=== PATIENT | female | born 1980 | race Caucasian/White ===

== ENCOUNTER 2016-10-19 10:38 | Emergency (ER) | payer MEDICAID ==
[2016-10-19 11:22] LABS: RAPID STREP SCREEN REAGENT QC YELLOW (YELLOW)
[2016-10-19] MEDS ORDERED: DEXAMETHASONE 10 MG/ML VIAL PO STA (11:22)
[2016-10-19] MEDS ORDERED: DEXAMETHASONE 10 MG/ML VIAL ONE (11:40)
[2016-10-19] MEDS ORDERED: CHERRY SYRUP 10 ML UDC PO ONE (11:40)
--- NOTE | 2016-10-19 11:41 | ED Physician Documentation ---
History of Present Illness - Stated complaint Stated Complaint: SORE THROAT - Chief complaint Chief Complaint: Heent - Additonal information Additional information: hx from pt 36 female severe sore throat R ear pain no known fever no cough abd pain LMP now denies preg Review of Systems Constitutional: denies: Fever Ears: reports: Ear pain Throat: reports: Sore throat Respiratory: denies: Cough : reports: LMP (now). 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 - Present Medications Home Medications: Ambulatory Orders Medication Instructions Recorded Confirmed Amoxicillin 500 mg PO Q8H #30 capsule 10/19/16 Valacyclovir HCl [Valtrex] 1 tab PO DAILY 10/19/16 10/19/16 - Allergies Allergies/Adverse Reactions: Allergies Allergy/AdvReac Type Severity Reaction Status Date / Time No Known Drug Allergies Allergy Verified 10/19/16 10:50 - Social History Does the pt smoke?: Yes Smoking Status: Current every day smoker Does the pt drink ETOH?: Yes Does the pt have substance abuse?: Yes Substance Use and Type: Marijuana PD ED PE NORMAL - Vitals Vital signs reviewed: Yes - HEENT HEENT: Other (early 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 No: Ears normal (dull but not erythema) - Cardiac Cardiac: RRR - Respiratory Respiratory: No respiratory distress, Clear bilaterally Results - Vitals Vitals: Vital Signs - 24 hr 10/19/16 10:48 Temperature 36.6 C Heart Rate 97 Respiratory 12 Rate Blood Pressure 137/96 H O2 Saturation 100 Oxygen O2 Source Room air - Labs Labs: Laboratory Tests 10/19/16 10:44 Group A Strep Rapid Negative PD MEDICAL DECISION MAKING - ED course ED course: ealry SOCIAL WORKER ASSISTANT will tx with steroids and ab and close PMD follow up Departure - Departure Disposition: 01 Home, Self Care Clinical Impression: Peritonsillar abscess Condition: Good Instructions: ED Peritonsillar Abscess Prescriptions: Amoxicillin 500 mg PO Q8H #30 capsule Comments: Rest and drink plenty of fluids The steroid dose will help decrease the pain and swelling within about 3 hr. The antibiotic will take a day or two to take effect Please follow up with your PMD for a recheck tomorrow If worse come back to the ER - some tonsillar abscesses get worse and need to be drained And please get your blood pressure rechecked when you are feeling better - it was high today Forms: Activity restrictions
[2016-10-19 12:18] VITALS: BP 140/95
== END 2016-10-19 12:17 | disposition home or self-care (01) ==
LOC: ED 10:38
DX: J36 Peritonsillar abscess (principal); R03.0 Elevated blood-pressure reading, without diagnosis of hypertension; E11.9 Type 2 diabetes mellitus without complications; F17.200 Nicotine dependence, unspecified, uncomplicated
CPT/HCPCS: 87070; 87430; 99283; A9270

== ENCOUNTER 2019-11-20 14:52 | Outpatient (CLI) | payer MEDICAID ==
[2019-11-20 18:00] LABS: BASOPHILS # (AUTO) 0.1 10^3/uL (0.0-0.1); EOSINOPHILS # (AUTO) 0.7 10^3/uL (0.0-0.7); EOSINOPHILS % (AUTO) 6.8 %; HGB - HEMOGLOBIN 14.7 g/dL (12.0-16.0); LYMPHOCYTES # (AUTO) 3.4 10^3/uL (1.5-3.5); LYMPHOCYTES % (AUTO) 31.2 %; MEAN CORPUSCULAR HEMOGLOBIN 29.5 pg (27.0-31.0); MEAN CORPUSCULAR VOLUME 89.4 fL (81.0-99.0); MEAN PLATELET VOLUME 11.3 fL (7.9-10.8); MONOCYTES # (AUTO) 0.5 10^3/uL (0.0-1.0); MONOCYTES % (AUTO) 4.9 %; NEUTROPHILS # (AUTO) 6.1 10^3/uL (1.5-6.6); NEUTROPHILS % (AUTO) 55.7 %; PLT - PLATELET COUNT 348 10^3/uL (130-450); RED BLOOD COUNT 4.99 10^6/uL (4.20-5.40); RED CELL DISTRIBUTION WIDTH 12.4 % (12.0-15.0); WHITE BLOOD COUNT 10.9 x10^3/uL (4.8-10.8)
[2019-11-20 18:38] LABS: ALBUMIN 4.4 g/dL (3.2-5.5); ALBUMIN/GLOBULIN RATIO 1.4 (1.0-2.2); ALKALINE PHOSPHATASE 79 IU/L (42-121); ALT ALANINE AMINOTRANSFERASE 18 IU/L (10-60); AST ASPARTATE AMINOTRANSFERASE 15 IU/L (10-42); BILIRUBIN,TOTAL < 0.2 mg/dL (0.2-1.0); BUN - BLOOD UREA NITROGEN 19 mg/dL (6-20); CALCIUM 9.4 mg/dL (8.5-10.3); CARBON DIOXIDE - CO2 25 mmol/L (21-32); CHLORIDE 102 mmol/L (101-111); CREATININE 0.6 mg/dL (0.4-1.0); GLUCOSE 285 mg/dL (70-100); SODIUM 135 mmol/L (135-145); TOTAL PROTEIN 7.6 g/dL (6.7-8.2)
[2019-11-20 19:04] LABS: HB2 TOTAL 16.3 g/dL; HEMOGLOBIN A1C 1.5 g/dL; HEMOGLOBIN A1C % 10.6 % (4.6-6.2)
== END 2019-11-20 23:59 | disposition home or self-care (01) ==
LOC: LAB.WCP 14:52
PROVIDERS: ATTEND Physician Assistant
DX: E11.9 Type 2 diabetes mellitus without complications (principal); F41.8 Other specified anxiety disorders
CPT/HCPCS: 36415; 80053; 83036; 84443; 85025

== ENCOUNTER 2020-02-07 16:50 | Outpatient (CLI) | payer MEDICAID ==
--- NOTE | 2020-02-07 16:52 | XRAY Report ---
PROCEDURE: Shoulder 2 View RT INDICATIONS: RIGHT SHOULDER PAIN TECHNIQUE: 2 views of the shoulder were acquired. COMPARISON: None. FINDINGS: Bones: No fractures or dislocations. No suspicious bony lesions. Visualized ribs appear intact. Soft tissues: No suspicious soft tissue calcifications. IMPRESSION: 1. No fracture or dislocation. Reviewed by: Dustin Adam MD on 02/07/2020 3:50 PM [facility] Approved by: Dustin Adam MD on 02/07/2020 3:50 PM [facility] Station ID: [id number]
== END 2020-02-07 23:59 | disposition home or self-care (01) ==
LOC: DI.WCP 16:50
PROVIDERS: ATTEND Physician Assistant
DX: M25.511 Pain in right shoulder (principal)

== ENCOUNTER 2020-02-21 09:46 | Outpatient (CLI) | payer MEDICAID ==
[2020-02-21 12:17] LABS: ALBUMIN/GLOBULIN RATIO 1.3 (1.0-2.2); BILIRUBIN,TOTAL 0.4 mg/dL (0.2-1.0); CALCIUM 9.1 mg/dL (8.5-10.3); CREATININE 0.6 mg/dL (0.4-1.0); TOTAL PROTEIN 7.1 g/dL (6.7-8.2)
[2020-02-21 12:21] LABS: CREATININE,URINE 179.7 mg/dL; MICROALBUM/CREATININE RATIO,UR 13.4 ug/mg (<30.0); MICROALBUMIN,URINE 2.4 mg/dL (0-300.0)
[2020-02-21 12:41] LABS: HEMOGLOBIN A1c% 7.9 % (4.27-6.07)
== END 2020-02-21 23:59 | disposition home or self-care (01) ==
LOC: LAB.WCP 09:46
PROVIDERS: ATTEND Physician Assistant
DX: E11.9 Type 2 diabetes mellitus without complications (principal)
CPT/HCPCS: 36415; 80053; 82043; 82570; 83036

== ENCOUNTER 2020-04-09 14:03 | Outpatient (CLI) | payer MEDICAID ==
[2020-04-09 14:34] LABS: CALCIUM 9.4 mg/dL (8.5-10.3); CREATININE 0.6 mg/dL (0.4-1.0)
[2020-04-09] MEDS ORDERED: IOVERSOL 320 100 ML VIAL IVP ONE ×2 (14:43→15:16)
--- NOTE | 2020-04-09 15:23 | CT Report ---
PROCEDURE: SOFT TISSUE NECK W INDICATIONS: CERVICAL/SUPRACLAVICULAR LYMPHADENOPATHY CONTRAST: IV CONTRAST: Optiray 320 ml: 100 PO CONTRAST: *NO PO CONTRAST TECHNIQUE: After the administration of intravenous contrast, 3.0 mm axial sections acquired from the sella to th e aortic arch. Additional oblique axial 3.0 mm sections acquired through the pharynx. 3 mm thick co jonny reformats were generated. For radiation dose reduction, the following was used: automated exp osure control, adjustment of mA and/or kV according to patient size. COMPARISON: Correlation is made with the accompanying chest CT, 04/09/2020 FINDINGS: Image quality: Excellent. Lymph nodes: A marker is placed upon the area of clinical concern involving the right posterior neck, as on series 2 image 38. Due to the marker, there is a normal size lymph node seen that measures 6 x 4 mm, as on series 2 image 39. No enlarged lymph nodes can be seen throughout the neck. Vessels: Visualized vasculature appears patent. Neck spaces: The oropharynx, nasopharynx, and pharynx demonstrate no mucosal lesions. The vocal cor ds, false vocal cords, pyriform sinuses, epiglottis, vallecula, and tongue base all appear normal. E xtramucosal spaces appear unremarkable. Glands: The parotid and submandibular glands appear normal. The thyroid is normal in size. Miscellaneous: Visualized brain and orbits appear normal. Lung apices appear clear. Superficial so ft tissues appear normal. Bones: No suspicious bony lesions. Visualized sinuses and mastoids appear unremarkable. IMPRESSION: At the area of clinical concern involving the right posterior neck, a normal-size lymph node can be s een. No enlarged lymph nodes are seen throughout the neck. Reviewed by: Danny Sawyer MD on 04/09/2020 2:22 PM [place] Approved by: Danny Sawyer MD on 04/09/2020 2:22 PM [facility] Station ID: [id number]
--- NOTE | 2020-04-09 16:19 | CT Report ---
PROCEDURE: CHEST W INDICATIONS: CERVICAL/SUPRACLAVICULAR LYMPHADENOPATHY CONTRAST: IV CONTRAST: Optiray 320 ml: 100 PO CONTRAST: *NO PO CONTRAST TECHNIQUE: After the administration of intravenous contrast, 5 mm thick sections acquired from the pulmonary api brinda to the posterior costophrenic angles. 7 mm thick coronal MIP reformats were acquired. For radia tion dose reduction, the following was used: automated exposure control, adjustment of mA and/or kV according to patient size. COMPARISON: None. FINDINGS: Image quality: Excellent. Lungs and pleura: No acute air space opacities. No pleural effusions or pneumothorax. Central and peripheral airways are patent and normal in caliber. Mediastinum: Heart size is normal. No pericardial effusion. No mediastinal or hilar adenopathy by size criteria. Thoracic aorta and central pulmonary arteries are normal in size. Esophagus is lester l in caliber. No hiatal hernia. Bones and chest wall: No suspicious bony lesions. No vertebral body compression fractures. No axil belkys or supraclavicular adenopathy by size criteria. Thyroid gland is uniform in attenuation.. Abdomen: Visualized upper abdominal solid organs appear normal. Upper abdominal bowel loops are nor mal in caliber. IMPRESSION: Unremarkable contrast-enhanced CT exam of the chest. No acute finding, thoracic lymphadenopathy, or o ther significant abnormality. Reviewed by: Ancelmo Carcamo MD on 04/09/2020 4:17 PM PST Approved by: Ancelmo Carcamo MD on 04/09/2020 4:17 PM PST Station ID: [id number]
== END 2020-04-09 14:04 | disposition home or self-care (01) ==
LOC: DI 14:03
PROVIDERS: ATTEND Physician Assistant
DX: R59.0 Localized enlarged lymph nodes (principal); F17.200 Nicotine dependence, unspecified, uncomplicated; F41.8 Other specified anxiety disorders
CPT/HCPCS: 36415; 70491; 71260; 80048; Q9967

== ENCOUNTER 2021-02-07 08:00 | Outpatient (CLI) | payer MEDICAID, OTHER ==
[2021-02-07 18:09] LABS: BASOPHILS # (AUTO) 0.1 10^3/uL (0.0-0.1); BASOPHILS % (AUTO) 0.4 %; EOSINOPHILS % (AUTO) 0.1 %; HCT - HEMATOCRIT 49.8 % (37.0-47.0); HGB - HEMOGLOBIN 16.3 g/dL (12.0-16.0); LYMPHOCYTES # (AUTO) 2.4 10^3/uL (1.5-3.5); LYMPHOCYTES % (AUTO) 15.1 %; MEAN CORPUSCULAR HEMOGLOBIN 29.7 pg (27.0-31.0); MEAN CORPUSCULAR HGB CONC 32.7 g/dL (32.0-36.0); MEAN CORPUSCULAR VOLUME 90.9 fL (81.0-99.0); MEAN PLATELET VOLUME 10.6 fL (7.9-10.8); MONOCYTES # (AUTO) 0.6 10^3/uL (0.0-1.0); MONOCYTES % (AUTO) 3.7 %; NEUTROPHILS # (AUTO) 12.7 10^3/uL (1.5-6.6); NEUTROPHILS % (AUTO) 80.4 %; PLT - PLATELET COUNT 412 10^3/uL (130-450); RED BLOOD COUNT 5.48 10^6/uL (4.20-5.40); RED CELL DISTRIBUTION WIDTH 12.6 % (12.0-15.0); WHITE BLOOD COUNT 15.9 x10^3/uL (4.8-10.8)
[2021-02-07 18:40] LABS: ALBUMIN 4.7 g/dL (3.2-5.5); ALBUMIN/GLOBULIN RATIO 1.4 (1.0-2.2); BILIRUBIN,TOTAL 0.8 mg/dL (0.2-1.0); CALCIUM 9.3 mg/dL (8.5-10.3); CREATININE 0.6 mg/dL (0.4-1.0); POTASSIUM 3.8 mmol/L (3.5-5.0); TOTAL PROTEIN 8.1 g/dL (6.7-8.2)
[2021-02-07 18:58] LABS: MICROALBUM/CREATININE RATIO,UR 63.4 ug/mg (<30.0); MICROALBUMIN,URINE 10.2 mg/dL (0-300.0)
[2021-02-07 20:19] LABS: ESTIMATED AVERAGE GLUCOSE 183 mg/dL (70-100)
== END 2021-02-07 23:59 | disposition home or self-care (01) ==
LOC: LAB.WCP 08:00
PROVIDERS: ATTEND Family Medicine
DX: E11.9 Type 2 diabetes mellitus without complications (principal)
CPT/HCPCS: 36415; 80053; 82043; 82570; 83036; 85025

== ENCOUNTER 2021-02-28 08:00 | Outpatient (CLI) | payer MEDICAID, OTHER ==
[2021-02-28 12:32] LABS: BASOPHILS # (AUTO) 0.1 10^3/uL (0.0-0.1); BASOPHILS % (AUTO) 0.8 %; EOSINOPHILS # (AUTO) 0.4 10^3/uL (0.0-0.7); EOSINOPHILS % (AUTO) 4.3 %; HCT - HEMATOCRIT 43.5 % (37.0-47.0); HGB - HEMOGLOBIN 13.8 g/dL (12.0-16.0); LYMPHOCYTES # (AUTO) 1.9 10^3/uL (1.5-3.5); LYMPHOCYTES % (AUTO) 20.6 %; MEAN CORPUSCULAR HEMOGLOBIN 29.1 pg (27.0-31.0); MEAN CORPUSCULAR HGB CONC 31.7 g/dL (32.0-36.0); MEAN CORPUSCULAR VOLUME 91.6 fL (81.0-99.0); MEAN PLATELET VOLUME 10.5 fL (7.9-10.8); MONOCYTES # (AUTO) 0.6 10^3/uL (0.0-1.0); MONOCYTES % (AUTO) 5.9 %; NEUTROPHILS # (AUTO) 6.3 10^3/uL (1.5-6.6); NEUTROPHILS % (AUTO) 68.2 %; PLT - PLATELET COUNT 399 10^3/uL (130-450); RED BLOOD COUNT 4.75 10^6/uL (4.20-5.40); RED CELL DISTRIBUTION WIDTH 12.5 % (12.0-15.0); WHITE BLOOD COUNT 9.3 x10^3/uL (4.8-10.8)
[2021-02-28 12:44] LABS: ALBUMIN 4.2 g/dL (3.2-5.5); ALBUMIN/GLOBULIN RATIO 1.2 (1.0-2.2); BILIRUBIN,TOTAL 0.5 mg/dL (0.2-1.0); CALCIUM 9.9 mg/dL (8.5-10.3); CREATININE 0.6 mg/dL (0.4-1.0); POTASSIUM 4.2 mmol/L (3.5-5.0); TOTAL PROTEIN 7.6 g/dL (6.7-8.2)
== END 2021-02-28 23:59 | disposition home or self-care (01) ==
LOC: LAB.WCP 08:00
PROVIDERS: ATTEND Family Medicine
DX: K52.9 Noninfective gastroenteritis and colitis, unspecified (principal); R10.9 Unspecified abdominal pain
CPT/HCPCS: 36415; 80053; 85025

== ENCOUNTER 2021-03-03 07:45 | Outpatient (CLI) | payer MEDICAID, OTHER | END 2021-03-03 23:59 | disposition home or self-care (01) | LOC: LAB.R 07:45 | PROVIDERS: ATTEND Family Medicine | DX: K52.9 Noninfective gastroenteritis and colitis, unspecified (principal); R10.9 Unspecified abdominal pain | CPT/HCPCS: 81599; 83630; 83993; 87045; 87329; 87427; 87449; 87493 ==

== ENCOUNTER 2021-03-24 08:11 | Outpatient (CLI) | payer MEDICAID | END 2021-03-24 08:12 | disposition home or self-care (01) | LOC: LAB.N 08:11 | PROVIDERS: ATTEND Surgery | DX: Z01.812 Encounter for preprocedural laboratory examination (principal); K29.70 Gastritis, unspecified, without bleeding; K20.90 Esophagitis, unspecified without bleeding; E11.9 Type 2 diabetes mellitus without complications; F41.8 Other specified anxiety disorders; F43.10 Post-traumatic stress disorder, unspecified; Z79.4 Long term (current) use of insulin; Z20.822 Contact with and (suspected) exposure to COVID-19 ==

== ENCOUNTER 2021-03-25 06:52 | Day surgery (SDC) | payer MEDICAID ==
[2021-03-25 07:18] LABS: HCG UR QUAL NEGATIVE
[2021-03-25] MEDS ORDERED: LACTATED RINGERS 1,000 ML IV ONE ×2 (07:35→08:46)
--- NOTE | 2021-03-25 07:42 | ANESTHESIA ---
Pre-Anesthesia VS, & Labs - Diagnosis change in bowel habits, gastritis - Procedure Colonoscopy, EGD Vital Signs: Temp Pulse Resp BP Pulse Ox 36.6 C 89 22 121/86 H 100 03/25/21 07:15 03/25/21 07:15 03/25/21 07:15 03/25/21 07:15 03/25/21 07:15 Height: 51 ft Weight (kg): 74.3 kg Body Mass Index: 0.3 BMI Classification: Underweight - NPO >8 hours - Is Patient ?: No - Lab Results Current Lab Results: Laboratory Tests 03/25/21 07:19: POC Whole Bld Glucose 139 H Home Medications and Allergies Home Medications: Ambulatory Orders Insulin Glargine [Lantus Solostar] 20 units SQ DAILY 03/18/21 Pantoprazole [Protonix] 40 mg PO DAILY 03/18/21 Valacyclovir HCl [Valtrex] 1 tab PO DAILY PRN 10/19/16 Insulin Glargine [Lantus Solostar] 20 units SQ DAILY 03/18/21 Pantoprazole [Protonix] 40 mg PO DAILY 03/18/21 Allergies/Adverse Reactions: Allergies Allergy/AdvReac Type Severity Reaction Status Date / Time No Known Drug Allergies Allergy Verified 10/19/16 10:50 Anes History & Medical History - Anesthetic History Anesthesia Complications: reports: No previous complications - Medical History Cardiovascular: reports: None Pulmonary: reports: None Gastrointestinal: reports: Other Urinary: reports: None Musculoskeletal: reports: None Endocrine/Autoimmune: reports: Type 2 diabetes Skin: reports: None Smoking Status: Current every day smoker History of Cancer?: No - Surgical History Gynecologic: reports: Dilation and currettage Exam General: Alert Dental: WNL Neck Mobility: Limited Mallampati classification: II Thyromental Distance: greater than 6 cm Respiratory: Lungs clear Cardiovascular: Regular rate Mental/Cognitive Status: Alert/Oriented X3 Plan Anesthesia Type: Total IV Consent for Procedure(s) Verified and Reviewed: Yes Code Status: Attempt Resuscitation ASA classification: 2-Mild systemic disease Is this case an emergency?: No
[2021-03-25] MEDS ORDERED: PROPOFOL 500 MG/50 ML 500 MG/50 ML VIAL ONE (07:46)
[2021-03-25] MEDS ORDERED: LIDOCAINE-MPF 2% 5 ML VIAL ONE (07:46)
[2021-03-25] MEDS ORDERED: MIDAZOLAM 2 MG/2 ML VIAL ONE (07:47)
[2021-03-25 09:49] VITALS: BP 128/70
--- NOTE | 2021-03-25 10:09 | ANESTHESIA POST OP EVALUATION ---
Anesthesia Post Eval - Post Anesthesia Eval Vitals: Last Vital Signs Temp 36.2 C L 03/25/21 09:45 Pulse 75 03/25/21 09:45 Resp 16 03/25/21 09:45 BP 128/70 03/25/21 09:45 Pulse Ox 99 03/25/21 09:45 CV Function Including HR & BP: Stable Pain Control: Satisfactory Nausea & Vomiting: Negative Mental Status: Baseline Respiratory Status: Airway Patent Hydration Status: Satisfactory Anesthesia Complications: None
== END 2021-03-25 06:53 | disposition home or self-care (01) ==
LOC: SDS 06:52
PROVIDERS: ATTEND Surgery
PROC: 0DB58ZX Excision of Esophagus, Via Natural or Artificial Opening Endoscopic, Diagnostic (ICD-10-PCS; 2021-03-25)
PROC: 0DBE8ZX Excision of Large Intestine, Via Natural or Artificial Opening Endoscopic, Diagnostic (ICD-10-PCS; 2021-03-25)
PROC: 0DB98ZX Excision of Duodenum, Via Natural or Artificial Opening Endoscopic, Diagnostic (ICD-10-PCS; principal; 2021-03-25 08:15)
PROC: 0DB78ZX Excision of Stomach, Pylorus, Via Natural or Artificial Opening Endoscopic, Diagnostic (ICD-10-PCS; 2021-03-25 08:15)
DX: R19.4 Change in bowel habit (principal); R11.2 Nausea with vomiting, unspecified; R10.13 Epigastric pain; K44.9 Diaphragmatic hernia without obstruction or gangrene; K29.50 Unspecified chronic gastritis without bleeding; K57.30 Diverticulosis of large intestine without perforation or abscess without bleeding; K63.5 Polyp of colon; K64.8 Other hemorrhoids; F41.8 Other specified anxiety disorders; F43.10 Post-traumatic stress disorder, unspecified
CPT/HCPCS: 43239; 45380; 81025; J7120

== ENCOUNTER 2021-06-04 11:11 | Outpatient (CLI) | payer MEDICAID ==
[2021-06-04 11:40] LABS: CREATININE 0.6 mg/dL (0.4-1.0)
[2021-06-04] MEDS ORDERED: IOVERSOL 320 100 ML VIAL IVP ONE ×2 (11:46→17:41)
[2021-06-04] MEDS ORDERED: IOPAMIDOL-300 50 ML VIAL ONE (11:46)
--- NOTE | 2021-06-04 15:38 | CT Report ---
PROCEDURE: Abdomen/Pelvis W INDICATIONS: ABD PAIN CONTRAST: IV CONTRAST: Optiray 320 ml: 100 PO CONTRAST: Isovue 300 ml50 TECHNIQUE: After the administration of oral and intravenous contrast, 5 mm thick sections acquired from the diap hragms to the symphysis. 5 mm thick coronal and sagittal reformats were acquired. For radiation dos e reduction, the following was used: automated exposure control, adjustment of mA and/or kV accordin g to patient size. COMPARISON: None. FINDINGS: Image quality: Excellent. ABDOMEN: Lung bases: Lung bases are clear. Heart size is normal. Solid organs: The liver is mildly enlarged with mild diffuse hypoattenuation. The gallbladder appear s normal. Biliary system is non dilated. Pancreas enhances normally. Spleen is normal in size. No a drenal nodules. Kidneys demonstrate normal size and enhancement, without hydronephrosis. Peritoneum and bowel: Multiple diverticula are seen in the colon without signs of acute diverticuliti s. Normal retrocecal appendix. No free fluid or air. Nodes and vessels: No retroperitoneal or mesenteric adenopathy by size criteria. Aorta and inferior vena cava are normal in size. Miscellaneous: There is a small fat-containing supraumbilical hernia. PELVIS: Genitourinary: Bladder wall thickness is normal. Miscellaneous: No inguinal hernias or adenopathy. Bones: No suspicious bony lesions. No vertebral body compression fractures. Mild degenerative hendrix ges are seen at the right sacroiliac joint. Focal degenerative changes are seen in spine at the L5-S1 level and there is facet hypertrophy at the L5 level resulting in mild right 1 anterolisthesis of L4 on L5. IMPRESSION: 1.No acute abnormality in the abdomen or pelvis. 2.Colonic diverticulosis without signs of acute diverticulitis. 3.Mild hepatomegaly and diffuse hepatic steatosis. 4.Small fat-containing supraumbilical hernia. Reviewed by: Jonathan Lucio MD on 06/04/2021 3:37 PM PST Approved by: Jonathan Lucio MD on 06/04/2021 3:37 PM PST Station ID: [id number]
[2021-06-04] MEDS ORDERED: IOPAMIDOL-300 50 ML VIAL PO ONE (17:41)
== END 2021-06-04 11:12 | disposition home or self-care (01) ==
LOC: DI 11:11
PROVIDERS: ATTEND Family Medicine
DX: R10.9 Unspecified abdominal pain (principal); K57.30 Diverticulosis of large intestine without perforation or abscess without bleeding; K76.0 Fatty (change of) liver, not elsewhere classified; K43.9 Ventral hernia without obstruction or gangrene
CPT/HCPCS: 36415; 74177; 82565; Q9967

== ENCOUNTER 2021-07-17 08:04 | Observation (INO) | payer MEDICAID ==
[2021-07-17] MEDS ORDERED: SODIUM CHLORIDE 0.9% 1,000 ML IV STA ×3 (08:20→14:12)
[2021-07-17] MEDS ORDERED: DROPERIDOL 5 MG/2 ML VIAL IVP STA (08:23)
--- NOTE | 2021-07-17 08:34 | ED Physician Documentation ---
PD HPI ABD PAIN - Stated complaint Stated Complaint: VOMITING BLOOD - Chief complaint Chief Complaint: Abd Pain - History obtained from History obtained from: Patient - History of Present Illness Timing - onset: Last night Timing - details: Gradual onset Pain level max: 4 Pain level now: 3 Quality: Aching, Dull, Pain Location: All over / everywhere Improved by: Vomiting Worsened by: Eating Associated symptoms: No: Fever, Nausea, Vomiting, Hematemesis, Diarrhea, Constipation, Melena, Hematochezia Recently seen: Not recently seen - Additional information Additional information: Patient is a 41-year-old female who has a history of diabetes. She states that she began vomiting last night. This been an ongoing issue for her for many months. She states that they think she has gastroparesis. Uses marijuana daily. She does smoke cigarettes as well. She had a negative endoscopy in March 2021. Negative CT scan last month. States that there is dull, aching pain across her upper abdomen. She states she does not remember seeing any blood in her vomit but she looked at her pants and thought there might be red/brown rob and was concerned about bleeding. She states that she has been prescribed medication for home but has not been taking it. She states she is on insulin for diabetes but does not know what her blood sugar has been. No fevers. No chills. No diarrhea or constipation. No recent antibiotics. Review of Systems Constitutional: denies: Fever Ears: denies: Ear pain Nose: denies: Rhinorrhea / runny nose, Congestion Cardiac: denies: Chest pain / pressure, Palpitations Respiratory: denies: Cough GI: reports: Vomiting. 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 - Present Medications Home Medications: Ambulatory Orders Medication Instructions Recorded Confirmed Valacyclovir HCl [Valtrex] 1 tab PO DAILY PRN 10/19/16 03/25/21 Insulin Glargine [Lantus Solostar] 20 units SQ DAILY 03/18/21 03/25/21 Pantoprazole [Protonix] 40 mg PO DAILY 03/18/21 03/25/21 - Allergies Allergies/Adverse Reactions: Allergies Allergy/AdvReac Type Severity Reaction Status Date / Time No Known Drug Allergies Allergy Verified 07/17/21 08:13 - Living Situation Living Arrangement: reports: At home - Social History Does the pt smoke?: Yes Smoking Status: Current every day smoker Does the pt drink ETOH?: Yes Does the pt have substance abuse?: Yes Substance Use and Type: Marijuana PD ED PE NORMAL - Vitals Vital signs reviewed: Yes - General General: Alert and oriented X 3, No acute distress, Well developed/nourished - HEENT HEENT: PERRL, Moist mucous membranes - Neck Neck: Supple, no meningeal sign - Cardiac Cardiac: RRR, No murmur, Strong equal pulses - Respiratory Respiratory: No respiratory distress, Clear bilaterally - Abdomen Abdomen: Soft, Non tender, Non distended - Derm Derm: Warm and dry - Extremities Extremities: No edema, No calf tenderness / cord - Neuro Neuro: Alert and oriented X 3 - Psych Psych: Normal mood, Normal affect Results - Vitals Vitals: Vital Signs - 24 hr 07/17/21 07/17/21 07/17/21 08:10 09:30 10:30 Temperature 35.8 C L Heart Rate 103 H 102 H 106 H Respiratory 16 29 H 27 H Rate Blood Pressure 201/96 H 192/90 H 174/88 H O2 Saturation 96 100 99 07/17/21 07/17/21 07/17/21 13:00 14:31 16:00 Temperature 37 C 37.2 C Heart Rate 118 H 105 H Respiratory 34 H 28 H Rate Blood Pressure 180/80 H 147/78 H O2 Saturation 97 96 Oxygen O2 Source Room air - Labs Labs: Laboratory Tests 07/17/21 07/17/21 07/17/21 08:18 08:29 08:29 WBC 19.1 H RBC 5.62 H Hgb 16.5 H Hct 47.3 H MCV 84.2 MCH 29.4 MCHC 34.9 RDW 13.1 Plt Count 432 MPV 10.6 Neut # (Auto) 17.5 H Lymph # (Auto) 1.2 L [place] # (Auto) 0.3 Eos # (Auto) 0.0 Baso # (Auto) 0.1 Absolute Nucleated RBC 0.00 Nucleated RBC % 0.0 VBG pH VBG pCO2 VBG pO2 VBG HCO3 VBG Total CO2 VBG O2 Saturation VBG Base Excess Sodium 132 L Potassium 3.6 Chloride 96 L Carbon Dioxide 19 L Anion Gap 17.0 H BUN 14 Creatinine 0.7 Estimated GFR (MDRD) 91 Glucose 334 H POC Whole Bld Glucose 318 H Calcium 9.5 Total Bilirubin 0.6 AST 20 ALT 19 Alkaline Phosphatase 80 Total Protein 8.7 H Albumin 4.8 Globulin 3.9 Albumin/Globulin Ratio 1.2 Lipase 25 Urine Color Urine Clarity Urine pH Ur Specific [place] Urine Protein Urine Glucose (UA) Urine Ketones Urine Occult Blood Urine Nitrite Urine Bilirubin Urine Urobilinogen Ur Leukocyte Esterase Urine RBC Urine WBC Ur Squamous Epith Cells Urine Bacteria Ur Microscopic Review Urine Culture Comments Urine HCG, Qual Urine Opiates Screen Ur Oxycodone Screen Urine Methadone Screen Ur Propoxyphene Screen Ur Barbiturates Screen Ur Tricyclics Screen Ur Phencyclidine Scrn Ur Amphetamine Screen U Methamphetamines Scrn U Benzodiazepines Scrn Urine Cocaine Screen U Cannabinoids Screen Ethyl Alcohol < 5.0 Serum Ketones NEGATIVE 07/17/21 07/17/21 07/17/21 09:47 09:47 09:52 WBC RBC Hgb Hct MCV MCH MCHC RDW Plt Count MPV Neut # (Auto) Lymph # (Auto) [place] # (Auto) Eos # (Auto) Baso # (Auto) Absolute Nucleated RBC Nucleated RBC % VBG pH 7.345 VBG pCO2 39.3 L VBG pO2 33.7 VBG HCO3 21.0 L VBG Total CO2 22.2 L VBG O2 Saturation 65.6 VBG Base Excess -4.3 L Sodium Potassium Chloride Carbon Dioxide Anion Gap BUN Creatinine Estimated GFR (MDRD) Glucose POC Whole Bld Glucose Calcium Total Bilirubin AST ALT Alkaline Phosphatase Total Protein Albumin Globulin Albumin/Globulin Ratio Lipase Urine Color YELLOW Urine Clarity CLEAR Urine pH 7.5 Ur Specific [place] 1.015 Urine Protein TRACE Urine Glucose (UA) >=1000 H Urine Ketones 40 H Urine Occult Blood MODERATE H Urine Nitrite NEGATIVE Urine Bilirubin NEGATIVE Urine Urobilinogen 0.2 (NORMAL) Ur Leukocyte Esterase NEGATIVE Urine RBC 11-25 H Urine WBC 0-3 Ur Squamous Epith Cells RARE Squamous Urine Bacteria Rare Ur Microscopic Review INDICATED Urine Culture Comments NOT INDICATED Urine HCG, Qual NEGATIVE Urine Opiates Screen NEGATIVE Ur Oxycodone Screen NEGATIVE Urine Methadone Screen NEGATIVE Ur Propoxyphene Screen NEGATIVE Ur Barbiturates Screen NEGATIVE Ur Tricyclics Screen NEGATIVE Ur Phencyclidine Scrn NEGATIVE Ur Amphetamine Screen NEGATIVE U Methamphetamines Scrn NEGATIVE U Benzodiazepines Scrn NEGATIVE Urine Cocaine Screen NEGATIVE U Cannabinoids Screen POSITIVE H Ethyl Alcohol Serum Ketones 07/17/21 07/17/21 07/17/21 13:46 13:53 13:57 WBC 19.1 H RBC 5.51 H Hgb 16.1 H Hct 46.3 MCV 84.0 MCH 29.2 MCHC 34.8 RDW 13.1 Plt Count 403 MPV 10.0 Neut # (Auto) 17.4 H Lymph # (Auto) 1.2 L [place] # (Auto) 0.3 Eos # (Auto) 0.0 Baso # (Auto) 0.1 Absolute Nucleated RBC 0.00 Nucleated RBC % 0.0 VBG pH VBG pCO2 VBG pO2 VBG HCO3 VBG Total CO2 VBG O2 Saturation VBG Base Excess Sodium 135 Potassium 3.6 Chloride 99 L Carbon Dioxide 21 Anion Gap 15.0 H BUN 10 Creatinine 0.6 Estimated GFR (MDRD) 109 Glucose 196 H POC Whole Bld Glucose 182 H Calcium 8.7 Total Bilirubin AST ALT Alkaline Phosphatase Total Protein Albumin Globulin Albumin/Globulin Ratio Lipase Urine Color Urine Clarity Urine pH Ur Specific [place] Urine Protein Urine Glucose (UA) Urine Ketones Urine Occult Blood Urine Nitrite Urine Bilirubin Urine Urobilinogen Ur Leukocyte Esterase Urine RBC Urine WBC Ur Squamous Epith Cells Urine Bacteria Ur Microscopic Review Urine Culture Comments Urine HCG, Qual Urine Opiates Screen Ur Oxycodone Screen Urine Methadone Screen Ur Propoxyphene Screen Ur Barbiturates Screen Ur Tricyclics Screen Ur Phencyclidine Scrn Ur Amphetamine Screen U Methamphetamines Scrn U Benzodiazepines Scrn Urine Cocaine Screen U Cannabinoids Screen Ethyl Alcohol Serum Ketones PD MEDICAL DECISION MAKING - ED course Complexity details: reviewed results, re-evaluated patient, considered differential, d/w patient ED course: Unclear etiology the patient's symptoms. Chest x-ray does not show any acute abnormalities. Abdomen pelvis CT does not show any acute abnormalities. She became more tachycardic and more tachypneic in the emergency department. Even when her pain was well controlled from the burning esophageal pain. She is unable to tolerate any significant amount of oral intake. Repeat laboratory testing does show an improved anion gap, but a persistent leukocytosis. We will place the patient in observation for vomiting, hyper glycemia, persistent tachycardia, tachypnea. No hypoxia or respiratory distress. Discussed the case with Dr. Machuca, hospitalist who accepts patient counseled regarding signs and symptoms for which I believe and urgent re-evaluation would be necessary. Patient with good understanding of and agreement to plan and is comfortable going home at this time This document was made in part using voice recognition software. While efforts are made to proofread this document, sound alike and grammatical errors may occur. Departure - Departure Disposition: ED Place in Observation Clinical Impression: Tachycardia, Tachypnea, Hyperglycemia Vomiting Qualifiers: Vomiting type: unspecified Nausea presence: with nausea Qualified Code(s): R11.2 - Nausea with vomiting, unspecified Leukocytosis Qualifiers: Leukocytosis type: unspecified Qualified Code(s): D72.829 - Elevated white blood cell count, unspecified Condition: Stable Discharge Date/Time: 07/17/21 18:04
--- OUTSIDE RECORDS SUMMARY | 2021-07-17 08:48 | EXTERNAL MEDICAL SUMMARY RPT | Continuity of Care Document ---
:1980 Author Organization [place] Address [address] [place] [address] Phone Care Team Providers Name Role Phone Cornelius Burger Unavailable Unavailable Allergies No information. Encounters No information. Medications No information. Problems date description facility [id number] Gastritis, unspecified, without bleedin [facility] Results No information.
[2021-07-17 08:49] LABS: ALBUMIN 4.8 g/dL (3.2-5.5); ALBUMIN/GLOBULIN RATIO 1.2 (1.0-2.2); ALKALINE PHOSPHATASE 80 IU/L (42-121); ALT ALANINE AMINOTRANSFERASE 19 IU/L (10-60); AST ASPARTATE AMINOTRANSFERASE 20 IU/L (10-42); BILIRUBIN,TOTAL 0.6 mg/dL (0.2-1.0); BUN - BLOOD UREA NITROGEN 14 mg/dL (6-20); CALCIUM 9.5 mg/dL (8.5-10.3); CARBON DIOXIDE - CO2 19 mmol/L (21-32); CHLORIDE 96 mmol/L (101-111); CREATININE 0.7 mg/dL (0.4-1.0); ETOH - ETHANOL < 5.0 mg/dL; GFR - MDRD 91 (>89); GLUCOSE 334 mg/dL (70-100); LIPASE 25 U/L (22-51); POTASSIUM 3.6 mmol/L (3.5-5.0); SODIUM 132 mmol/L (135-145); TOTAL PROTEIN 8.7 g/dL (6.7-8.2)
[2021-07-17 09:08] LABS: KETONES, SERUM (ACETEST) NEGATIVE (NEGATIVE)
[2021-07-17 09:19] LABS: BASOPHILS # (AUTO) 0.1 10^3/uL (0.0-0.1); BASOPHILS % (AUTO) 0.5 %; HCT - HEMATOCRIT 47.3 % (37.0-47.0); HGB - HEMOGLOBIN 16.5 g/dL (12.0-16.0); LYMPHOCYTES # (AUTO) 1.2 10^3/uL (1.5-3.5); MEAN CORPUSCULAR HEMOGLOBIN 29.4 pg (27.0-31.0); MEAN CORPUSCULAR HGB CONC 34.9 g/dL (32.0-36.0); MEAN CORPUSCULAR VOLUME 84.2 fL (81.0-99.0); MEAN PLATELET VOLUME 10.6 fL (7.9-10.8); MONOCYTES # (AUTO) 0.3 10^3/uL (0.0-1.0); MONOCYTES % (AUTO) 1.6 %; NEUTROPHILS # (AUTO) 17.5 10^3/uL (1.5-6.6); NEUTROPHILS % (AUTO) 91.4 %; PLT - PLATELET COUNT 432 10^3/uL (130-450); RED BLOOD COUNT 5.62 10^6/uL (4.20-5.40); RED CELL DISTRIBUTION WIDTH 13.1 % (12.0-15.0); WHITE BLOOD COUNT 19.1 x10^3/uL (4.8-10.8)
[2021-07-17 09:57] LABS: MUDS CUTOFF CONCENTRATIONS CUTOFF CONC BELOW:
[2021-07-17 10:00] LABS: VBG BASE EXCESS -4.3 mmol/L (-2 - +2); VBG OXYGEN SATURATION 65.6 % (60-80); VBG PCO2 39.3 mmHg (41-51); VBG PH 7.345 (7.31-7.41); VBG PO2 33.7 mmHg (25-47); VBG TOTAL CO2 22.2 mmol/L (24-29)
[2021-07-17 10:17] LABS: BILIRUBIN,URINE NEGATIVE (NEGATIVE); GLUCOSE, URINE (UA) >=1000 mg/dL (NEGATIVE); KETONES,URINE (UA) 40 mg/dL (NEGATIVE); LEUKOCYTE ESTERASE, URINE NEGATIVE (NEGATIVE); NITRITE,URINE NEGATIVE (NEGATIVE); OCCULT BLOOD,URINE MODERATE (NEGATIVE); PH,URINE 7.5 PH (5.0-7.5); PROTEIN,URINE TRACE mg/dL (NEGATIVE); UROBILINOGEN,URINE 0.2 (NORMAL) E.U./dL (NORMAL)
[2021-07-17 10:20] LABS: CLARITY,URINE CLEAR (CLEAR)
[2021-07-17 10:22] LABS: HCG UR QUAL NEGATIVE
[2021-07-17 10:29] LABS: AMPHETAMINE SCREEN,URINE NEGATIVE (NEGATIVE); BARBITURATE SCREEN,UR NEGATIVE (NEGATIVE); BENZODIAZEPINES SCREEN, URINE NEGATIVE (NEGATIVE); COCAINE SCREEN URINE NEGATIVE (NEGATIVE); METHADONE SCREEN, URINE NEGATIVE (NEGATIVE); METHAMPHETAMINES SCREEN, URINE NEGATIVE (NEGATIVE); OPIATE SCREEN, URINE NEGATIVE (NEGATIVE); OXYCODONE SCREEN, URINE NEGATIVE (NEGATIVE); PROPOXYPHENE SCREEN, URINE NEGATIVE (NEGATIVE); THC CANNABINOID SCREEN, URINE POSITIVE (NEGATIVE); TRICYCLIC ANTIDEPRESSANT,URINE NEGATIVE (NEGATIVE)
[2021-07-17 10:34] LABS: BACTERIA,URINE Rare /HPF (None Seen); SQUAMOUS EPITHELIAL CELL,UR RARE Squamous (<= Few); WBC,URINE 0-3 /HPF (0-5)
[2021-07-17] MEDS ORDERED: LORazepam 2 MG/ML VIAL IVP STA (10:55)
[2021-07-17] MEDS ORDERED: SUCRALFATE 1 GM/10 ML UDC PO STA (11:25)
[2021-07-17] MEDS ORDERED: MAG HYDROX/AL HYDROX/SIMETH 30 ML UDC PO STA (11:25)
[2021-07-17] MEDS ORDERED: INSULIN REGULAR HUMAN 100 UNIT/1 ML 10 ML MDV SUBQ STA (12:08)
[2021-07-17] MEDS ORDERED: IOVERSOL 320 100 ML VIAL IVP ONE ×2 (12:38→14:05)
--- NOTE | 2021-07-17 13:25 | CT Report ---
PROCEDURE: Abdomen/Pelvis W INDICATIONS: abd pain, vomiting CONTRAST: IV CONTRAST: Optiray 320 ml: 100 PO CONTRAST: *NO PO CONTRAST TECHNIQUE: After the administration of contrast, 5 mm thick sections acquired from the diaphragms to the sym physis. 5 mm thick coronal and sagittal reformats were acquired. For radiation dose reduction, the following was used: automated exposure control, adjustment of mA and/or kV according to patient size . COMPARISON: None. FINDINGS: Image quality: Excellent. ABDOMEN: Lung bases: Lung bases are clear. Heart size is normal. Solid organs: Liver and spleen are normal in size and enhancement. There is hepatic steatosis. Gall bladder is normal. Biliary system is non dilated. Pancreas enhances normally. No adrenal nodules. Kidneys demonstrate normal size and enhancement, without hydronephrosis. Peritoneum and bowel: Mild circumferential thickening of the distal esophagus noted compatible with e sophagitis. There is diverticulosis without evidence of diverticulitis. The appendix is normal. Nodes and vessels: No retroperitoneal or mesenteric adenopathy by size criteria. Aorta and inferior vena cava are normal in size. Miscellaneous: Small supraumbilical fat-containing hernia. PELVIS: Genitourinary: Bladder wall thickness is normal. Miscellaneous: No inguinal hernias or adenopathy. Bones: No suspicious bony lesions. No vertebral body compression fractures. Degenerative disc dise ase at L5-S1. Facet arthrosis at L4-5 and L5-S1 with grade 1 anterolisthesis of L4 over L5 with a dif fuse disc bulge at this level. IMPRESSION: 1. Mild circumferential thickening of the distal esophagus compatible with esophagitis. 2. No acute abnormality of the abdomen or pelvis. 3. Small supraumbilical fat-containing hernia. 4. Diverticulosis without evidence of diverticulitis. 5. Hepatic steatosis. Reviewed by: Jaden Mitchell on 07/17/2021 1:23 PM PDT Approved by: Jaden Mitchell on 07/17/2021 1:23 PM PDT Station ID: [id number]
[2021-07-17] MEDS ORDERED: MORPHINE 2 MG/ML CARPUJECT IVP STA (13:57)
[2021-07-17 14:00] LABS: BASOPHILS # (AUTO) 0.1 10^3/uL (0.0-0.1); BASOPHILS % (AUTO) 0.3 %; HCT - HEMATOCRIT 46.3 % (37.0-47.0); HGB - HEMOGLOBIN 16.1 g/dL (12.0-16.0); LYMPHOCYTES # (AUTO) 1.2 10^3/uL (1.5-3.5); LYMPHOCYTES % (AUTO) 6.4 %; MEAN CORPUSCULAR HEMOGLOBIN 29.2 pg (27.0-31.0); MEAN CORPUSCULAR HGB CONC 34.8 g/dL (32.0-36.0); MONOCYTES # (AUTO) 0.3 10^3/uL (0.0-1.0); MONOCYTES % (AUTO) 1.7 %; NEUTROPHILS # (AUTO) 17.4 10^3/uL (1.5-6.6); PLT - PLATELET COUNT 403 10^3/uL (130-450); RED BLOOD COUNT 5.51 10^6/uL (4.20-5.40); RED CELL DISTRIBUTION WIDTH 13.1 % (12.0-15.0); WHITE BLOOD COUNT 19.1 x10^3/uL (4.8-10.8)
[2021-07-17] MEDS ORDERED: FAMOTIDINE 20 MG TABLET PO STA (14:09)
[2021-07-17] MEDS ORDERED: PANTOPRAZOLE 40 MG VIAL IVP STA (14:09)
--- NOTE | 2021-07-17 14:12 | XRAY Report ---
PROCEDURE: Chest 1 View X-Ray INDICATIONS: chest pain TECHNIQUE: One view of the chest was acquired. COMPARISON: 07/18/[address] of abdomen and pelvis and CT chest dated 04/09/2020 FINDINGS: Surgical changes and devices: None. Lungs and pleura: No pleural effusions or pneumothorax. Lungs are clear. Mediastinum: Mediastinal contours appear normal. Heart size is normal. Bones and chest wall: No suspicious bony lesions. Overlying soft tissues appear unremarkable. IMPRESSION: No acute cardiopulmonary pathology. Reviewed by: Pollo Yadav MD on 07/17/2021 2:11 PM PDT Approved by: Pollo Yadav MD on 07/17/2021 2:11 PM PDT Station ID: [id number]
[2021-07-17 14:15] LABS: CALCIUM 8.7 mg/dL (8.5-10.3); CREATININE 0.6 mg/dL (0.4-1.0); POTASSIUM 3.6 mmol/L (3.5-5.0)
[2021-07-17] MEDS ORDERED: HYDROmorphone 1 MG/ML CARPUJECT IVP STA (15:05)
[2021-07-17] MEDS ORDERED: ACETAMINOPHEN 325 MG TABLET PO PRN (16:32)
[2021-07-17] MEDS ORDERED: GI COCKTAIL 120 ML BOTTLE PO PRN (16:33)
--- NOTE | 2021-07-17 16:49 | HISTORY & PHYSICAL EXAMINATION ---
Chief Complaint - Chief Complaint Chief Complaint: Nause and vomiting. History of Present Illness - Admitted From Admitted From:: Home - History Obtained From Records Reviewed: [facility] History obtained from: Patient, ER Physician, EMR - History of Present Illness HPI Comment/Other: This is a 41-year-old female with a past medical history significant for type 2 diabetes mellitus who presents today complaining of nausea and vomiting began yesterday evening. She states she has been vomiting nonstop overnight and she believes part it may have been bloody. She has had associated epigastric abdominal pain. She has also had chills and sweats associated with the vomiting but no fever. She initially felt short of breath and complained of heartburn but her dyspnea is now resolved. She states she was hospitalized about 4 months ago at [facility] for a similar episode. She underwent an EGD and colonoscopy and was diagnosed with gastritis. She states that they believe she may have gastroparesis but she does not take any medications for it. Only medication is insulin which she did take last night. She does smoke marijuana each night. She denies alcohol use. She feels like this happens to her every 4 to 6 months and sometimes she she in the ER and sometimes she is hospitalized. She reports overall her appetite is not very good and she does not eat very much. She reports no prior history of DVT, leg edema or pain. No recent travel. She believes her white blood cell count is always little elevated and last time she was hospitalized it was quite high and even when she followed up on discharge, she believes it was around 14,000. She reports no cough, dysuria, urgency, hematuria. In the emergency department, she did have a leukocytosis and was tachycardic with heart rates in the 110s. She underwent a CT which showed no acute abnormalities. She is given multiple liters of normal saline as well as Protonix and antiemetics. She still has had limited p.o. intake and still appears quite hypovolemic and so she will be admitted for further management. 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 Mother has a history of coronary artery disease, diabetes, stroke. Her sister has breast cancer. Living arrangement: At home Living Situation: With family Social History Notes: She lives at home with her son. She does not drink alcohol. She does smoke marijuana on a daily basis. Meds/Allgy - Home Medications Home Medications: Ambulatory Orders Medication Instructions Recorded Confirmed Valacyclovir HCl [Valtrex] 1 tab PO DAILY PRN 10/19/16 03/25/21 Insulin Glargine [Lantus Solostar] 20 units SQ DAILY 03/18/21 03/25/21 Pantoprazole [Protonix] 40 mg PO DAILY 03/18/21 03/25/21 - Allergies Allergies/Adverse Reactions: Allergies Allergy/AdvReac Type Severity Reaction Status Date / Time No Known Drug Allergies Allergy Verified 07/17/21 08:13 Review of Systems - Constitutional Constitutional: reports: Chills, Poor appetite, Diaphoresis. denies: Fever - Cardiovascular Cariovascular: denies: Chest pain, Edema, Exertional dyspnea, Decr. exercise tolerance - Respiratory Respiratory: denies: Cough, SOB at rest, SOB with exertion - Gastrointestinal Gastrointestinal: reports: Abdominal pain, Nausea, [place] blood emesis, Reflux/heartburn, Poor appetite. denies: Constipation, Diarrhea, Change in bowel habits - Genitourinary Genitourinary: denies: Dysuria, Frequency, Urgency, Hematuria - Neurological Neurological: denies: General weakness, Focal weakness - Hematologic/Lymphatic Hematologic/Lymphatic: denies: Blood clots, Bleeding tendencies - All Other Systems All Other Systems: reports: Reviewed and negative Prior Level of Functionality: She is independent with her ADLs. Exam - Vital Signs Reviewed Vital Signs: Yes Vital Signs: Vital Signs x48h Temp Pulse Resp BP Pulse Ox 07/17/21 14:31 180/80 H 07/17/21 13:00 37 C 118 H 34 H 97 07/17/21 10:30 106 H 27 H 174/88 H 99 07/17/21 09:30 102 H 29 H 192/90 H 100 - Physical Exam General Appearance: positive: Alert, Mild distress Eyes Bilateral: positive: Conjunctivae nml ENT: positive: Dry mucous membranes. negative: No signs of dehydration Neck: positive: Nml inspection Respiratory: positive: No respiratory distress. negative: Wheezes, Rales Cardiovascular: positive: Tachycardia. negative: Irregularly irregular, Systolic murmur Abdomen: positive: No distention, Tenderness (Mild diffuse tenderness.). negative: Guarding, Rebound Skin: positive: Warm, Dry Extremities: positive: No pedal edema. negative: Pedal edema, Calf tenderness, Moy's sign/cords Neurologic/Psychiatric: positive: Motor nml. negative: Disoriented to person, Disoriented to place, Disoriented to time Conclusion/Plan - Problem List (1) Vomiting Conclusion/Plan: CT showed no acute normalities. Suspect this may be due to gastroparesis or gastroenteritis. Although she reported bloody emesis at home, there has been no evidence of hematemesis here and her hemoglobin is stable on recheck in the emergency department. Will place in observation for IV hydration antiemetics Zofran and Compazine as needed. We will start her on Protonix with GI cocktail as needed. Will place on a clear liquid diet. I anticipate she should able to go home tomorrow. Qualifiers: Vomiting type: unspecified Nausea presence: with nausea Qualified Code(s): R11.2 - Nausea with vomiting, unspecified (2) Leukocytosis Conclusion/Plan: Suspect likely reactive. There is no evidence of infection as chest x-ray, CT the abdomen pelvis and urinalysis are unremarkable. We will recheck a CBC in the morning. Hold off on antibiotics. (3) Tachycardia Conclusion/Plan: Suspect this is also reactive due to the nausea and vomiting as well as hypovolemia. She is in a sinus rhythm on telemetry. She has no chest pain so we will hold off on checking a troponin. She is also a low risk for DVT/PE. We will monitor her heart rate as we hydrate her. (4) Type 2 diabetes mellitus Conclusion/Plan: She was hyperglycemic initially but this is improved after receiving insulin in the emergency department. We will continue her home Lantus but at half dose given her limited p.o. intake. We will add a sliding scale. We will advance her diet as tolerated. Check A1c. - Lab Results Lab results reviewed: Yes Fish Bones: 07/17/21 13:53 07/17/21 13:46 - Diagnostic Imaging Results Diagnostic Imaging Results: positive: Final report reviewed Core Measures - Anticipated LOS I expect patient to be DC'd or transferred within 96 hours.: Yes - Issues Hospital Issues and Management Plan: 41-year-old female with type 2 diabetes mellitus presents with nausea and vomiti ng. She has had limited p.o. intake and having tachycardic with significant leukocytosis. Will place in observation for IV hydration. - DVT/VTE - Prophylaxis VTE/DVT Device ordered at admit?: Yes VTE/DVT Prophylaxis med ordered at admit?: No
[2021-07-17 17:11] LABS: MAGNESIUM 2.1 mg/dL (1.7-2.8); PHOSPHORUS 2.7 mg/dL (2.5-4.6)
[2021-07-17 17:51] LABS: B. PARAPERTUSSIS- RESP PCR PAN NOT DETECTED; B. PERTUSSIS- RESP PCR PANEL NOT DETECTED; C. PNEUMONIAE- RESP PCR PANEL NOT DETECTED; CORONAVIRUS 229E-RESP PCR NOT DETECTED; CORONAVIRUS HKU1-RESP PCR NOT DETECTED; CORONAVIRUS NL63-RESP PCR NOT DETECTED; CORONAVIRUS OC43-RESP PCR NOT DETECTED; HUMAN METAPNEUMOVIRUS NOT DETECTED; INFLUENZA A- RESP PCR PANEL NOT DETECTED; INFLUENZA B - RESP PCR PANEL NOT DETECTED; M. PNEUMONIAE- RESP PCR PANEL NOT DETECTED; PARAINFLUENZA VIRUS 1 NOT DETECTED; PARAINFLUENZA VIRUS 2 NOT DETECTED; PARAINFLUENZA VIRUS 3 NOT DETECTED; PARAINFLUENZA VIRUS 4 NOT DETECTED; RHINOVIRUS/ENTEROVIRUS NOT DETECTED; RSV- RESP PCR PANEL NOT DETECTED; SARS-CoV-2 -RESP PCR PANEL NOT DETECTED
[2021-07-17] MEDS: SODIUM CHLORIDE FLUSH 0.9% 10 ML SYRINGE IVP SCH (18:05)
[2021-07-17] MEDS: LACTATED RINGERS 1,000 ML IV SCH (18:05)
[2021-07-17] MEDS: PROCHLORPERAZINE 10 MG/2 ML VIAL IVP PRN (18:07)
[2021-07-17] MEDS: INSULIN ASPART 300 UNIT/3 ML PEN SUBQ SCH ×2 (18:16→21:31)
[2021-07-17] MEDS: NICOTINE 14 MG PATCH TOP SCH (19:17)
[2021-07-17] MEDS: INSULIN GLARGINE 300 UNIT/3 ML PEN SUBQ SCH (21:31)
[2021-07-17] MEDS: oxyCODONE 5 MG TABLET PO PRN (23:53)
[2021-07-18] MEDS: LACTATED RINGERS 1,000 ML IV SCH ×2 (03:25→17:54)
[2021-07-18] MEDS: SODIUM CHLORIDE FLUSH 0.9% 10 ML SYRINGE IVP PRN ×2 (03:26→17:54)
[2021-07-18] MEDS: SODIUM CHLORIDE FLUSH 0.9% 10 ML SYRINGE IVP SCH ×3 (04:55→16:53)
[2021-07-18] MEDS: MORPHINE 2 MG/ML CARPUJECT IVP PRN ×3 (05:09→22:00)
[2021-07-18] MEDS: PROCHLORPERAZINE 10 MG/2 ML VIAL IVP PRN ×2 (05:11→12:45)
[2021-07-18 05:35] LABS: BASOPHILS # (AUTO) 0.1 10^3/uL (0.0-0.1); BASOPHILS % (AUTO) 0.3 %; EOSINOPHILS # (AUTO) 0.2 10^3/uL (0.0-0.7); HGB - HEMOGLOBIN 14.1 g/dL (12.0-16.0); LYMPHOCYTES # (AUTO) 3.2 10^3/uL (1.5-3.5); LYMPHOCYTES % (AUTO) 17.4 %; MEAN CORPUSCULAR HEMOGLOBIN 28.7 pg (27.0-31.0); MEAN CORPUSCULAR HGB CONC 33.6 g/dL (32.0-36.0); MEAN CORPUSCULAR VOLUME 85.5 fL (81.0-99.0); MEAN PLATELET VOLUME 10.2 fL (7.9-10.8); MONOCYTES % (AUTO) 5.3 %; NEUTROPHILS # (AUTO) 14.1 10^3/uL (1.5-6.6); NEUTROPHILS % (AUTO) 75.7 %; PLT - PLATELET COUNT 375 10^3/uL (130-450); RED BLOOD COUNT 4.91 10^6/uL (4.20-5.40); RED CELL DISTRIBUTION WIDTH 13.4 % (12.0-15.0); WHITE BLOOD COUNT 18.6 x10^3/uL (4.8-10.8)
[2021-07-18 05:42] LABS: CALCIUM 8.4 mg/dL (8.5-10.3); CREATININE 0.5 mg/dL (0.4-1.0); POTASSIUM 3.1 mmol/L (3.5-5.0)
[2021-07-18] MEDS: PANTOPRAZOLE 40 MG TABLET PO SCH (06:58)
[2021-07-18] MEDS ORDERED: POTASSIUM CHLORIDE 20 MEQ TABLET PO ONE (07:21)
[2021-07-18] MEDS: INSULIN ASPART 300 UNIT/3 ML PEN SUBQ SCH ×4 (07:44→21:58)
[2021-07-18] MEDS: NICOTINE 14 MG PATCH TOP SCH (08:40)
[2021-07-18] MEDS ORDERED: lisinopriL 5 MG TABLET PO SCH (09:00)
[2021-07-18 09:49] LABS: ESTIMATED AVERAGE GLUCOSE 180 mg/dL (70-100); HEMOGLOBIN A1c% 7.9 % (4.27-6.07)
[2021-07-18] MEDS ORDERED: LABETALOL 20 MG/4 ML SYRINGE IVP ONE (10:48)
--- NOTE | 2021-07-18 11:04 | PHARMACY PROGRESS NOTE ---
- Best Possible Medication History Admit Date and Time: 07/17/21 9512 Processed by: Pharmacy Medication History completed: Yes Patient Interview: Completed Secondary Source(s): Physician records As the person ultimately responsible for medication therapy, providers are able to order a medication from an existing home medication list in [facility] via the "Reconcile Routine" prior to Confirmation of that medication by desktop support technician. Such practice is discouraged except when the physician, in their clinical judgment, deems that a medical need exists for a medication without regard to previous use.
[2021-07-18] MEDS ORDERED: LORazepam 2 MG/ML VIAL IVP STA (12:30)
--- NOTE | 2021-07-18 17:39 | PROVIDER PROGRESS NOTE ---
Subjective - Prog Note Date Prog Note Date: 07/18/21 - Subjective Subjective: She feels a little better but still feels quite nauseous with occasional emesis. Still has had very minimal p.o. intake. She had chest pain this morning but resolved. It was located over the sternum and was pressure-like. Nonradiating. Current Medications - Current Medications Current Medications: Active Medications Acetaminophen (Acetaminophen 325 Mg Tablet) 650 mg PO Q4HR PRN PRN Reason: Pain 1 to 4 Insulin Aspart (Insulin Aspart 300 Unit/3 Ml Pen) 1 - 9 unit SUBQ 0800,1200,1700,2100 [facility]; Protocol Last Admin: 07/18/21 16:52 Dose: 1 unit Insulin Glargine (Insulin Glargine 300 Unit/3 Ml Pen) 10 unit SUBQ QPM [facility] Last Admin: 07/17/21 21:31 Dose: 10 unit Lisinopril (Lisinopril 5 Mg Tablet) 10 mg PO DAILY [facility] Metoclopramide HCl (Metoclopramide 10 Mg/2 Ml Vial) 5 mg IVP Q6HR [facility] Morphine Sulfate (Morphine 2 Mg/Ml Carpuject) 2 mg IVP Q2HR PRN PRN Reason: Pain 8 to 10 Last Admin: 07/18/21 10:58 Dose: 2 mg Multi-Ingredient Mouthwash/Gargle (Gi Cocktail 120 Ml Bottle) 30 ml PO Q4H PRN PRN Reason: Abdominal Pain Nicotine (Nicotine 14 Mg Patch) 1 patch TOP DAILY [facility] Last Admin: 07/18/21 08:40 Dose: 1 patch Oxycodone HCl (Oxycodone 5 Mg Tablet) 5 mg PO Q4HR PRN PRN Reason: Pain 5 to 7 Last Admin: 07/17/21 23:53 Dose: 5 mg Pantoprazole Sodium (Pantoprazole 40 Mg Tablet) 40 mg PO QDAC [facility] Last Admin: 07/18/21 06:58 Dose: 40 mg Prochlorperazine Edisylate (Prochlorperazine 10 Mg/2 Ml Vial) 10 mg IVP Q6HR PRN PRN Reason: Nausea / Vomiting Last Admin: 07/18/21 12:45 Dose: 10 mg Sodium Chloride (Sodium Chloride Flush 0.9% 10 Ml Syringe) 10 ml IVP PRN PRN PRN Reason: NEEDED PER PROVIDER ORDERS Last Admin: 07/18/21 03:26 Dose: 10 ml Sodium Chloride (Sodium Chloride Flush 0.9% 10 Ml Syringe) 10 ml IVP 0100,0900,1700 [facility] Last Admin: 07/18/21 16:53 Dose: 10 ml Insulin Glargine [Lantus Solostar] 20 units SQ DAILY 03/18/21 Pantoprazole [Protonix] 40 mg PO DAILY 03/18/21 Objective - Vital Signs/Intake & Output Reviewed Vital Signs: Yes Vital Signs: Vital Signs x48h Temp Pulse Resp BP BP Pulse Ox 07/18/21 16:18 36.8 C 92 15 121/63 95 07/18/21 12:30 90 20 177/98 H 95 07/18/21 12:07 86 169/86 H 96 07/18/21 12:00 87 20 190/104 H 94 07/18/21 11:45 87 20 172/84 H 96 07/18/21 11:30 95 22 188/96 H 93 07/18/21 11:16 89 22 192/102 H 93 07/18/21 11:15 90 22 191/102 H 94 07/18/21 11:10 36.4 C L 89 24 188/105 H 94 07/18/21 11:05 90 185/96 H 94 07/18/21 10:58 36.4 C L 99 18 194/88 H 97 07/18/21 10:41 94 200/90 H 95 07/18/21 10:39 96 200/92 H 93 07/18/21 10:20 200/100 H 99 Intake & Output: Intake & Output 07/15/21 07/16/21 07/17/21 07/18/21 23:59 23:59 23:59 23:59 Intake Total 3100 2830 Output Total 1400 Balance 3100 1430 - Objective General Appearance: positive: Alert, Mild distress Eyes Bilateral: positive: Normal inspection, Conjunctivae nml ENT: positive: ENT inspection nml Neck: positive: Nml inspection Respiratory: positive: No respiratory distress. negative: Wheezes, Rales Cardiovascular: positive: Regular rate & rhythm, No murmur. negative: Tachycardia Abdomen: positive: No distention, Tenderness (Epigastric). negative: Non-tender Skin: positive: Warm, Dry Extremities: positive: No pedal edema Neurologic/Psychiatric: negative: Disoriented to person, Disoriented to place - Lab Results Fish Bones: 07/18/21 04:45 07/18/21 04:45 Other Labs: Lab Results x24hrs 07/18/21 07/18/21 07/18/21 Range/Units 16:16 11:10 11:01 WBC (4.8-10.8) x10^3/uL RBC (4.20-5.40) 10^6/uL Hgb (12.0-16.0) g/dL Hct (37.0-47.0) % MCV (81.0-99.0) fL MCH (27.0-31.0) pg MCHC (32.0-36.0) g/dL RDW (12.0-15.0) % Plt Count (130-450) 10^3/uL MPV (7.9-10.8) fL Neut # (Auto) (1.5-6.6) 10^3/uL Lymph # (Auto) (1.5-3.5) 10^3/uL [place] # (Auto) (0.0-1.0) 10^3/uL Eos # (Auto) (0.0-0.7) 10^3/uL Baso # (Auto) (0.0-0.1) 10^3/uL Absolute Nucleated RBC x10^3/uL Nucleated RBC % /100WBC D-Dimer < 200.0 L (200.0-255.0) ng/mL Sodium (135-145) mmol/L Potassium (3.5-5.0) mmol/L Chloride (101-111) mmol/L Carbon Dioxide (21-32) mmol/L Anion Gap (6-13) BUN (6-20) mg/dL Creatinine (0.4-1.0) mg/dL Estimated GFR (MDRD) (>89) Glucose (70-100) mg/dL POC Whole Bld Glucose 179 H 198 H (70 - 100) mg/dL Estimat Average Glucose (70-100) mg/dL Hemoglobin A1c % (4.27-6.07) % Calcium (8.5-10.3) mg/dL Troponin I High Sens (2.3-14.8) ng/L TSH (0.34-5.60) uIU/mL Nasal Adenovirus (PCR) Nasal B. parapertussis DNA (PCR) Nasal Coronavir 229E PCR Nasal Coronavir HKU1 PCR Nasal Coronavir NL63 PCR Nasal Coronavir OC43 PCR Nasal Enterovir/Rhinovir PCR Nasal Influenza B PCR Nasal Influenza A PCR Nasal Parainfluen 1 PCR Nasal Parainfluen 2 PCR Nasal Parainfluen 3 PCR Nasal Parainfluen 4 PCR Nasal RSV (PCR) Nasal B.pertussis DNA PCR Nasal C.pneumoniae (PCR) Jaskaran Human Metapneumo PCR Nasal M.pneumoniae (PCR) Nasal SARS-CoV-2 (PCR) 07/18/21 07/18/21 07/18/21 Range/Units 10:56 07:25 04:45 WBC (4.8-10.8) x10^3/uL RBC (4.20-5.40) 10^6/uL Hgb (12.0-16.0) g/dL Hct (37.0-47.0) % MCV (81.0-99.0) fL MCH (27.0-31.0) pg MCHC (32.0-36.0) g/dL RDW (12.0-15.0) % Plt Count (130-450) 10^3/uL MPV (7.9-10.8) fL Neut # (Auto) (1.5-6.6) 10^3/uL Lymph # (Auto) (1.5-3.5) 10^3/uL [place] # (Auto) (0.0-1.0) 10^3/uL Eos # (Auto) (0.0-0.7) 10^3/uL Baso # (Auto) (0.0-0.1) 10^3/uL Absolute Nucleated RBC x10^3/uL Nucleated RBC % /100WBC D-Dimer (200.0-255.0) ng/mL Sodium (135-145) mmol/L Potassium (3.5-5.0) mmol/L Chloride (101-111) mmol/L Carbon Dioxide (21-32) mmol/L Anion Gap (6-13) BUN (6-20) mg/dL Creatinine (0.4-1.0) mg/dL Estimated GFR (MDRD) (>89) Glucose (70-100) mg/dL POC Whole Bld Glucose 132 H (70 - 100) mg/dL Estimat Average Glucose 180 H (70-100) mg/dL Hemoglobin A1c % 7.9 H (4.27-6.07) % Calcium (8.5-10.3) mg/dL Troponin I High Sens 6.0 (2.3-14.8) ng/L TSH (0.34-5.60) uIU/mL Nasal Adenovirus (PCR) Nasal B. parapertussis DNA (PCR) Nasal Coronavir 229E PCR Nasal Coronavir HKU1 PCR Nasal Coronavir NL63 PCR Nasal Coronavir OC43 PCR Nasal Enterovir/Rhinovir PCR Nasal Influenza B PCR Nasal Influenza A PCR Nasal Parainfluen 1 PCR Nasal Parainfluen 2 PCR Nasal Parainfluen 3 PCR Nasal Parainfluen 4 PCR Nasal RSV (PCR) Nasal B.pertussis DNA PCR Nasal C.pneumoniae (PCR) Jaskaran Human Metapneumo PCR Nasal M.pneumoniae (PCR) Nasal SARS-CoV-2 (PCR) 07/18/21 07/18/21 07/17/21 Range/Units 04:45 04:45 20:37 WBC 18.6 H (4.8-10.8) x10^3/uL RBC 4.91 (4.20-5.40) 10^6/uL Hgb 14.1 (12.0-16.0) g/dL Hct 42.0 (37.0-47.0) % MCV 85.5 (81.0-99.0) fL MCH 28.7 (27.0-31.0) pg MCHC 33.6 (32.0-36.0) g/dL RDW 13.4 (12.0-15.0) % Plt Count 375 (130-450) 10^3/uL MPV 10.2 (7.9-10.8) fL Neut # (Auto) 14.1 H (1.5-6.6) 10^3/uL Lymph # (Auto) 3.2 (1.5-3.5) 10^3/uL [place] # (Auto) 1.0 (0.0-1.0) 10^3/uL Eos # (Auto) 0.2 (0.0-0.7) 10^3/uL Baso # (Auto) 0.1 (0.0-0.1) 10^3/uL Absolute Nucleated RBC 0.00 x10^3/uL Nucleated RBC % 0.0 /100WBC D-Dimer (200.0-255.0) ng/mL Sodium 136 (135-145) mmol/L Potassium 3.1 L (3.5-5.0) mmol/L Chloride 103 (101-111) mmol/L Carbon Dioxide 22 (21-32) mmol/L Anion Gap 11.0 (6-13) BUN 9 (6-20) mg/dL Creatinine 0.5 (0.4-1.0) mg/dL Estimated GFR (MDRD) 135 (>89) Glucose 140 H (70-100) mg/dL POC Whole Bld Glucose 146 H (70 - 100) mg/dL Estimat Average Glucose (70-100) mg/dL Hemoglobin A1c % (4.27-6.07) % Calcium 8.4 L (8.5-10.3) mg/dL Troponin I High Sens (2.3-14.8) ng/L TSH (0.34-5.60) uIU/mL Nasal Adenovirus (PCR) Nasal B. parapertussis DNA (PCR) Nasal Coronavir 229E PCR Nasal Coronavir HKU1 PCR Nasal Coronavir NL63 PCR Nasal Coronavir OC43 PCR Nasal Enterovir/Rhinovir PCR Nasal Influenza B PCR Nasal Influenza A PCR Nasal Parainfluen 1 PCR Nasal Parainfluen 2 PCR Nasal Parainfluen 3 PCR Nasal Parainfluen 4 PCR Nasal RSV (PCR) Nasal B.pertussis DNA PCR Nasal C.pneumoniae (PCR) Jaskaran Human Metapneumo PCR Nasal M.pneumoniae (PCR) Nasal SARS-CoV-2 (PCR) 07/17/21 07/17/21 07/17/21 Range/Units 18:07 16:48 16:48 WBC (4.8-10.8) x10^3/uL RBC (4.20-5.40) 10^6/uL Hgb (12.0-16.0) g/dL Hct (37.0-47.0) % MCV (81.0-99.0) fL MCH (27.0-31.0) pg MCHC (32.0-36.0) g/dL RDW (12.0-15.0) % Plt Count (130-450) 10^3/uL MPV (7.9-10.8) fL Neut # (Auto) (1.5-6.6) 10^3/uL Lymph # (Auto) (1.5-3.5) 10^3/uL [place] # (Auto) (0.0-1.0) 10^3/uL Eos # (Auto) (0.0-0.7) 10^3/uL Baso # (Auto) (0.0-0.1) 10^3/uL Absolute Nucleated RBC x10^3/uL Nucleated RBC % /100WBC D-Dimer (200.0-255.0) ng/mL Sodium (135-145) mmol/L Potassium (3.5-5.0) mmol/L Chloride (101-111) mmol/L Carbon Dioxide (21-32) mmol/L Anion Gap (6-13) BUN (6-20) mg/dL Creatinine (0.4-1.0) mg/dL Estimated GFR (MDRD) (>89) Glucose (70-100) mg/dL POC Whole Bld Glucose 153 H (70 - 100) mg/dL Estimat Average Glucose (70-100) mg/dL Hemoglobin A1c % (4.27-6.07) % Calcium (8.5-10.3) mg/dL Troponin I High Sens (2.3-14.8) ng/L TSH 2.00 (0.34-5.60) uIU/mL Nasal Adenovirus (PCR) NOT DETECTED Nasal B. parapertussis DNA (PCR) NOT DETECTED Nasal Coronavir 229E PCR NOT DETECTED Nasal Coronavir HKU1 PCR NOT DETECTED Nasal Coronavir NL63 PCR NOT DETECTED Nasal Coronavir OC43 PCR NOT DETECTED Nasal Enterovir/Rhinovir PCR NOT DETECTED Nasal Influenza B PCR NOT DETECTED Nasal Influenza A PCR NOT DETECTED Nasal Parainfluen 1 PCR NOT DETECTED Nasal Parainfluen 2 PCR NOT DETECTED Nasal Parainfluen 3 PCR NOT DETECTED Nasal Parainfluen 4 PCR NOT DETECTED Nasal RSV (PCR) NOT DETECTED Nasal B.pertussis DNA PCR NOT DETECTED Nasal C.pneumoniae (PCR) NOT DETECTED Jaskaran Human Metapneumo PCR NOT DETECTED Nasal M.pneumoniae (PCR) NOT DETECTED Nasal SARS-CoV-2 (PCR) NOT DETECTED Assessment/Plan - Problem List (1) Vomiting Impression: This is still ongoing. Suspect may be due to gastroparesis. She still has had very limited p.o. intake and still has emesis. We will start her on Reglan 5 mg IV scheduled. Continue with Zofran as needed. Continue with IV hydration. We will keep on a clear liquid diet and hope to advance later today with possible discharge tomorrow. Qualifiers: Vomiting type: unspecified Nausea presence: with nausea Qualified Code(s): R11.2 - Nausea with vomiting, unspecified (2) Chest pain Impression: This likely related to her emesis and due to gastritis/esophagitis. EKG did not suggest ischemia and troponin and D-dimer are within normal limits. (3) Leukocytosis Impression: This is ongoing but slightly improved. This is likely reactive. There has been no source of infection. Continue to hold off on antibiotics. Qualifiers: Leukocytosis type: unspecified Qualified Code(s): D72.829 - Elevated white blood cell count, unspecified (4) Type 2 diabetes mellitus Impression: Her blood glucose has been controlled on the decreased dose of Lantus given her limited p.o. intake. We will continue the current dose of Lantus with sliding scale. Clear liquid diet as tolerated. (5) Tachycardia Impression: This is resolved. EKG today did not suggest ischemia. Troponins within normal limits. D-dimer is also less than 200 so low suspicion for DVT/PE. This was likely due to her nausea/vomiting and hypovolemia.
[2021-07-18] MEDS: METOCLOPRAMIDE 10 MG/2 ML VIAL IVP SCH (17:54)
[2021-07-18] MEDS: INSULIN GLARGINE 300 UNIT/3 ML PEN SUBQ SCH (21:59)
[2021-07-18] MEDS ORDERED: TEMAZEPAM 15 MG CAPSULE PO PRN (23:01)
[2021-07-19] MEDS: SODIUM CHLORIDE FLUSH 0.9% 10 ML SYRINGE IVP SCH ×2 (00:09→08:37)
[2021-07-19] MEDS: METOCLOPRAMIDE 10 MG/2 ML VIAL IVP SCH ×3 (00:14→11:27)
[2021-07-19] MEDS: MORPHINE 2 MG/ML CARPUJECT IVP PRN (03:52)
[2021-07-19] MEDS: SODIUM CHLORIDE FLUSH 0.9% 10 ML SYRINGE IVP PRN (03:53)
[2021-07-19] MEDS: LACTATED RINGERS 1,000 ML IV SCH (04:21)
[2021-07-19] MEDS: oxyCODONE 5 MG TABLET PO PRN (04:21)
[2021-07-19] MEDS: PANTOPRAZOLE 40 MG TABLET PO SCH (05:37)
[2021-07-19 06:15] LABS: BASOPHILS # (AUTO) 0.1 10^3/uL (0.0-0.1); BASOPHILS % (AUTO) 0.6 %; EOSINOPHILS # (AUTO) 0.1 10^3/uL (0.0-0.7); EOSINOPHILS % (AUTO) 0.8 %; HCT - HEMATOCRIT 43.6 % (37.0-47.0); HGB - HEMOGLOBIN 14.7 g/dL (12.0-16.0); LYMPHOCYTES # (AUTO) 3.4 10^3/uL (1.5-3.5); LYMPHOCYTES % (AUTO) 27.3 %; MEAN CORPUSCULAR HEMOGLOBIN 28.7 pg (27.0-31.0); MEAN CORPUSCULAR HGB CONC 33.7 g/dL (32.0-36.0); MEAN CORPUSCULAR VOLUME 85.2 fL (81.0-99.0); MONOCYTES # (AUTO) 0.7 10^3/uL (0.0-1.0); MONOCYTES % (AUTO) 5.9 %; NEUTROPHILS # (AUTO) 8.1 10^3/uL (1.5-6.6); NEUTROPHILS % (AUTO) 65.2 %; PLT - PLATELET COUNT 373 10^3/uL (130-450); RED BLOOD COUNT 5.12 10^6/uL (4.20-5.40); RED CELL DISTRIBUTION WIDTH 13.2 % (12.0-15.0); WHITE BLOOD COUNT 12.4 x10^3/uL (4.8-10.8)
[2021-07-19 06:24] LABS: CREATININE 0.4 mg/dL (0.4-1.0); POTASSIUM 3.7 mmol/L (3.5-5.0)
[2021-07-19] MEDS: INSULIN ASPART 300 UNIT/3 ML PEN SUBQ SCH ×2 (07:56→11:27)
--- NOTE | 2021-07-19 08:11 | Discharge Plan ---
Discharge Plan Problem Reviewed?: Yes Disposition: Home, Self Care Condition: Stable Prescriptions: Metoclopramide [Reglan] 5 mg PO Q6H PRN #12 tablet PRN Reason: Nausea / Vomiting lisinopriL [Zestril] 5 mg PO DAILY #30 tablet Ondansetron Odt [Zofran Odt] 4 mg TL Q6H PRN #10 tablet PRN Reason: Nausea / Vomiting Diet: Diabetic Activity Restrictions: Activity as Tolerated Instruction Topics: Gastroparesis Health Concerns: You were admitted to the hospital because of nausea and vomiting which we suspect may have been potentially due to gastroparesis or the marijuana use. We treated you with IV fluids as you are quite dehydrated. We gave you nausea medication and you have improved. You are now stable for discharge home. Plan of Treatment: We recommend taking Zofran as needed for nausea. We encourage you to follow-up with a advertising specialist as you may have gastroparesis and you will need further testing for this. You may also take Reglan as needed which can help with gastric motility. This can cause muscle twitching. We recommend you have small meals throughout the day rather than large meals to help with the vomiting in case you do have gastroparesis. Please also begin to take lisinopril 5 mg once a day. This can help with your blood pressure and help prevent kidney damage from diabetes. Assessment: The patient expressed understanding of the treatment plan. Additional Instructions or Follow Up instructions: Please follow-up with your primary care physician in 1 to 2 weeks. No Smoking: If you smoke, Please STOP! Call for help. Follow-up with: TEENA ARIAS MD [Primary Care Provider] -
--- NOTE | 2021-07-19 08:14 | DISCHARGE SUMMARY ---
Discharge Summary Admit Date: 07/17/21 Discharge Date: 07/19/21 Discharging Provider: Golden Machuca Primary Care Provider: Levi Boucher Code Status: Attempt Resuscitation Condition at Discharge: Stable Discharge Disposition: 01 Home, Self Care - DIAGNOSES Admission Diagnoses: Nausea and vomiting Leukocytosis Tachycardia Type 2 diabetes mellitus Discharge Diagnoses with Status of Each Condition: Nausea and vomiting - resolved. Chest pain - resolved. Leukocytosis - improved. Type 2 diabetes mellitus - stable. Tachycardia - resolved. - HPI History of Present Illness: This is a 41-year-old female with a past medical history significant for type 2 diabetes mellitus who presents today complaining of nausea and vomiting began yesterday evening. She states she has been vomiting nonstop overnight and she believes part it may have been bloody. She has had associated epigastric abdominal pain. She has also had chills and sweats associated with the vomiting but no fever. She initially felt short of breath and complained of heartburn but her dyspnea is now resolved. She states she was hospitalized about 4 months ago at [facility] for a similar episode. She underwent an EGD and colonoscopy and was diagnosed with gastritis. She states that they believe she may have gastroparesis but she does not take any medications for it. Only medication is insulin which she did take last night. She does smoke marijuana each night. She denies alcohol use. She feels like this happens to her every 4 to 6 months and sometimes she she in the ER and sometimes she is hospitalized. She reports overall her appetite is not very good and she does not eat very much. She reports no prior history of DVT, leg edema or pain. No recent travel. She believes her white blood cell count is always little elevated and last time she was hospitalized it was quite high and even when she followed up on discharge, she believes it was around 14,000. She reports no cough, dysuria, urgency, hematuria. In the emergency department, she did have a leukocytosis and was tachycardic with heart rates in the 110s. She underwent a CT which showed no acute abnormalities. She is given multiple liters of normal saline as well as Protonix and antiemetics. She still has had limited p.o. intake and still appears quite hypovolemic and so she will be admitted for further management. - HOSPITAL COURSE Hospital Course: She was admitted for intractable nausea and vomiting which was felt to be secondary to cannabinoid hyperemesis syndrome or gastroparesis. She was treated with Zofran and scheduled Reglan. Her white count was elevated but this improved throughout the hospitalization and there was no evidence of infection. She did have chest pain on hospital day 2 but this was felt related to gastritis/esophagitis. EKG did not suggest ischemia and her troponin and D- dimer were within normal limits. Her tachycardia also resolved. She was then started on a clear liquid diet which was advanced and she tolerated well. She was then discharged the following day with Zofran as needed as well as Reglan. She was asked to follow-up with her primary care physician for consideration of a GI referral for further work-up of possible gastroparesis. She was also counseled on the possibility of this being related to her marijuana use and that this should be limited. - ALLERGIES Allergies/Adverse Reactions: Allergies Allergy/AdvReac Type Severity Reaction Status Date / Time No Known Drug Allergies Allergy Verified 07/17/21 08:13 - MEDICATIONS Home Medications: Ambulatory Orders Medication Instructions Recorded Confirmed Insulin Glargine [Lantus Solostar] 20 units SQ DAILY 03/18/21 07/18/21 Pantoprazole [Protonix] 40 mg PO DAILY 03/18/21 07/18/21 Metoclopramide [Reglan] 5 mg PO Q6H PRN #12 tablet 07/19/21 Ondansetron Odt [Zofran Odt] 4 mg TL Q6H PRN #10 tablet 07/19/21 lisinopriL [Zestril] 5 mg PO DAILY #30 tablet 07/19/21 - PHYSICAL EXAM AT DISCHARGE General Appearance: positive: No acute distress, Alert Eyes Bilateral: positive: Normal inspection, Conjunctivae nml ENT: positive: ENT inspection nml Neck: positive: Nml inspection Respiratory: positive: No respiratory distress, Breath sounds nml. negative: Wheezes, Rales Cardiovascular: negative: Tachycardia Abdomen: positive: Non-tender, No distention. negative: Tenderness Skin: positive: Warm, Dry Extremities: positive: No pedal edema Neurologic/Psychiatric: negative: Disoriented to person, Disoriented to place Physical Exam Other/Comments: Vital Signs - 24 hr 07/18/21 07/19/21 07/19/21 20:18 00:39 03:55 Temperature 37.2 C 36.8 C 36.7 C Heart Rate [ 95 90 86 Brachial] Respiratory 14 16 16 Rate Blood Pressure [Left Brachial artery] Blood Pressure 164/83 H 114/68 165/83 H [Right Brachial artery] O2 Saturation 94 94 97 07/19/21 07/19/21 07/19/21 04:21 07:48 11:14 Temperature 36.7 C 36.7 C Heart Rate [ 86 89 89 Brachial] Respiratory 16 18 Rate Blood Pressure 129/68 [Left Brachial artery] Blood Pressure 135/86 H 165/81 H [Right Brachial artery] O2 Saturation 95 97 Oxygen O2 Source Room air - LABS Result Diagrams: 07/19/21 05:35 07/19/21 05:35 - FOLLOW UP Follow Up: She was asked to follow-up with her primary care physician in 1-2 weeks. - TIME SPENT Time Spent in Discharge (Minutes): 31
[2021-07-19] MEDS: NICOTINE 14 MG PATCH TOP SCH (08:37)
[2021-07-19] MEDS ORDERED: lisinopriL 5 MG TABLET PO SCH (09:00)
[2021-07-19 11:15] VITALS: BP 165/81
== END 2021-07-19 13:00 | disposition home or self-care (01) ==
LOC: ED 08:04 → MS2 16:32
PROVIDERS: ADMIT Internal Medicine; ATTEND Internal Medicine
DX: R11.2 Nausea with vomiting, unspecified (principal); E11.65 Type 2 diabetes mellitus with hyperglycemia; Z79.4 Long term (current) use of insulin; R07.9 Chest pain, unspecified; D72.829 Elevated white blood cell count, unspecified; R00.0 Tachycardia, unspecified; F17.210 Nicotine dependence, cigarettes, uncomplicated; Z20.822 Contact with and (suspected) exposure to COVID-19; R06.02 Shortness of breath; R12 Heartburn; F32.A Depression, unspecified; F41.9 Anxiety disorder, unspecified; F43.10 Post-traumatic stress disorder, unspecified
CPT/HCPCS: 0202U; 36415; 71045; 74177; 80048; 80053; 80306; 80320; 81001; 81025; 82009; 82803; 83036; 83605; 83690; 83735; 84100; 84443; 84484; 85025; 85379; 93005; 96361; 96374; 96375; 96376; 99284; 99285; A9270; G0378; J1170; J1815; J2060; J2765; J7120; Q9967; 81003; 87086

== ENCOUNTER 2021-07-30 07:32 | Outpatient (CLI) | payer MEDICAID ==
[2021-07-30 12:13] LABS: ALBUMIN 4.1 g/dL (3.2-5.5); ALBUMIN/GLOBULIN RATIO 1.2 (1.0-2.2); BILIRUBIN,TOTAL 0.5 mg/dL (0.2-1.0); CALCIUM 9.5 mg/dL (8.5-10.3); CREATININE 0.7 mg/dL (0.4-1.0); POTASSIUM 4.3 mmol/L (3.5-5.0); TOTAL PROTEIN 7.5 g/dL (6.7-8.2)
[2021-07-30 12:18] LABS: BASOPHILS # (AUTO) 0.1 10^3/uL (0.0-0.1); BASOPHILS % (AUTO) 0.9 %; EOSINOPHILS # (AUTO) 0.7 10^3/uL (0.0-0.7); EOSINOPHILS % (AUTO) 6.6 %; HCT - HEMATOCRIT 45.2 % (37.0-47.0); HGB - HEMOGLOBIN 15.1 g/dL (12.0-16.0); LYMPHOCYTES # (AUTO) 2.3 10^3/uL (1.5-3.5); LYMPHOCYTES % (AUTO) 21.9 %; MEAN CORPUSCULAR HEMOGLOBIN 29.4 pg (27.0-31.0); MEAN CORPUSCULAR HGB CONC 33.4 g/dL (32.0-36.0); MEAN CORPUSCULAR VOLUME 87.9 fL (81.0-99.0); MEAN PLATELET VOLUME 10.4 fL (7.9-10.8); MONOCYTES # (AUTO) 0.7 10^3/uL (0.0-1.0); MONOCYTES % (AUTO) 6.2 %; NEUTROPHILS # (AUTO) 6.8 10^3/uL (1.5-6.6); NEUTROPHILS % (AUTO) 64.2 %; PLT - PLATELET COUNT 391 10^3/uL (130-450); RED BLOOD COUNT 5.14 10^6/uL (4.20-5.40); RED CELL DISTRIBUTION WIDTH 13.3 % (12.0-15.0); WHITE BLOOD COUNT 10.6 x10^3/uL (4.8-10.8)
[2021-07-30 12:23] LABS: THYROID STIMULATING HORMONE 3.25 uIU/mL (0.34-5.60)
[2021-07-30 12:24] LABS: ESTIMATED AVERAGE GLUCOSE 186 mg/dL (70-100); HEMOGLOBIN A1c% 8.1 % (4.27-6.07)
== END 2021-07-30 07:33 | disposition home or self-care (01) ==
LOC: LAB.N 07:32
PROVIDERS: ATTEND Nurse Practitioner
DX: E11.9 Type 2 diabetes mellitus without complications (principal); F41.9 Anxiety disorder, unspecified; F32.A Depression, unspecified
CPT/HCPCS: 36415; 80053; 83036; 84443; 85025

== ENCOUNTER 2021-08-20 18:52 | Emergency (ER) | payer MEDICAID ==
[2021-08-20] MEDS ORDERED: SODIUM CHLORIDE 0.9% 1,000 ML IV STA (19:19)
[2021-08-20] MEDS ORDERED: ONDANSETRON 4 MG/2 ML VIAL IVP STA (19:19)
[2021-08-20 19:20] LABS: BASOPHILS # (AUTO) 0.1 10^3/uL (0.0-0.1); BASOPHILS % (AUTO) 0.7 %; EOSINOPHILS # (AUTO) 0.2 10^3/uL (0.0-0.7); EOSINOPHILS % (AUTO) 1.1 %; HCT - HEMATOCRIT 43.8 % (37.0-47.0); HGB - HEMOGLOBIN 15.1 g/dL (12.0-16.0); LYMPHOCYTES # (AUTO) 2.7 10^3/uL (1.5-3.5); LYMPHOCYTES % (AUTO) 17.5 %; MEAN CORPUSCULAR HEMOGLOBIN 29.5 pg (27.0-31.0); MEAN CORPUSCULAR HGB CONC 34.5 g/dL (32.0-36.0); MEAN CORPUSCULAR VOLUME 85.7 fL (81.0-99.0); MEAN PLATELET VOLUME 10.6 fL (7.9-10.8); MONOCYTES # (AUTO) 0.6 10^3/uL (0.0-1.0); MONOCYTES % (AUTO) 4.2 %; NEUTROPHILS # (AUTO) 11.7 10^3/uL (1.5-6.6); NEUTROPHILS % (AUTO) 76.2 %; PLT - PLATELET COUNT 378 10^3/uL (130-450); RED BLOOD COUNT 5.11 10^6/uL (4.20-5.40); WHITE BLOOD COUNT 15.3 x10^3/uL (4.8-10.8)
[2021-08-20] MEDS ORDERED: DROPERIDOL 5 MG/2 ML VIAL IVP STA (19:22)
--- NOTE | 2021-08-20 19:24 | ED Physician Documentation ---
History of Present Illness - Stated complaint Stated Complaint: VOMIT BLOOD/FEVER/CHILLS/DIZZY - Chief complaint Chief Complaint: Abd Pain - Additonal information Additional information: 41-year-old female who has a history of diabetes as well as a history of intractable nausea and vomiting thought to be secondary to cannabinoid hyperemesis and/or gastroparesis presents to the emergency department for acute nausea and vomiting that began this morning at about 11 AM. She does report bloody emesis. Denies any melena or hematochezia though she states that her stool was very dark. Patient states that she does have antiemetics prescribed for her at home but she did not take them and does not know what they are named. She also has not checked her blood sugars recently as she lost her glucometer Patient admits to smoking cannabis last night in an effort to make her stomach feel better Review of Systems Constitutional: reports: Chills, Myalgias Cardiac: denies: Chest pain / pressure, Palpitations Respiratory: denies: Dyspnea, Cough GI: reports: Abdominal Pain, Nausea, Vomiting, Hematemesis. 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 - Present Medications Home Medications: Ambulatory Orders Medication Instructions Recorded Confirmed Insulin Glargine [Lantus Solostar] 20 units SQ DAILY 03/18/21 08/18/21 Pantoprazole [Protonix] 40 mg PO DAILY 03/18/21 08/18/21 Zolpidem [Ambien] 5 mg PO HS PRN 08/18/21 08/18/21 Prochlorperazine [Compazine] 5 mg PO BID PRN #10 tablet 08/20/21 - Allergies Allergies/Adverse Reactions: Allergies Allergy/AdvReac Type Severity Reaction Status Date / Time No Known Drug Allergies Allergy Verified 08/20/21 18:56 - Social History Does the pt smoke?: Yes Smoking Status: Current every day smoker Does the pt drink ETOH?: Yes Does the pt have substance abuse?: Yes PD ED PE NORMAL - General General: Alert and oriented X 3, Other (Appears nauseated) - HEENT HEENT: PERRL - Cardiac Cardiac: RRR, No murmur - Respiratory Respiratory: No respiratory distress, Clear bilaterally - Abdomen Abdomen: Normal bowel sounds, Soft. No: Non tender (Mild tenderness of the epigastrium without guarding or rebound.) - Back Back: No CVA TTP, No spinal TTP - Derm Derm: Normal color, Warm and dry, No rash - Extremities Extremities: No deformity, No tenderness to palpate, Normal ROM s pain - Neuro Neuro: Alert and oriented X 3, faculty criminal justice 2-12 intact Eye Opening: Spontaneous Motor: Obeys Commands Verbal: Oriented GCS Score: 15 Results - Vitals Vitals: Vital Signs - 24 hr 08/20/21 08/20/21 08/20/21 18:56 19:20 21:01 Temperature 36.5 C 36.9 C Heart Rate 98 95 70 Respiratory 18 29 H 14 Rate Blood Pressure 150/90 H 188/93 H 174/106 H O2 Saturation 100 100 96 Oxygen O2 Source Room air - Labs Labs: Laboratory Tests 08/20/21 08/20/21 08/20/21 19:13 19:13 19:16 WBC 15.3 H RBC 5.11 Hgb 15.1 Hct 43.8 MCV 85.7 MCH 29.5 MCHC 34.5 RDW 13.0 Plt Count 378 MPV 10.6 Neut # (Auto) 11.7 H Lymph # (Auto) 2.7 Cass # (Auto) 0.6 Eos # (Auto) 0.2 Baso # (Auto) 0.1 Absolute Nucleated RBC 0.00 Nucleated RBC % 0.0 Sodium 137 Potassium 3.6 Chloride 100 L Carbon Dioxide 20 L Anion Gap 17.0 H BUN 16 Creatinine 0.7 Estimated GFR (MDRD) 91 Glucose 237 H POC Whole Bld Glucose 226 H Calcium 9.7 Total Bilirubin 0.5 AST 20 ALT 18 Alkaline Phosphatase 70 Total Protein 8.4 H Albumin 4.8 Globulin 3.6 Albumin/Globulin Ratio 1.3 Lipase 29 Urine Color Urine Clarity Urine pH Ur Specific [place] Urine Protein Urine Glucose (UA) Urine Ketones Urine Occult Blood Urine Nitrite Urine Bilirubin Urine Urobilinogen Ur Leukocyte Esterase Ur Microscopic Review Urine Culture Comments Urine HCG, Qual Urine Opiates Screen Ur Oxycodone Screen Urine Methadone Screen Ur Propoxyphene Screen Ur Barbiturates Screen Ur Tricyclics Screen Ur Phencyclidine Scrn Ur Amphetamine Screen U Methamphetamines Scrn U Benzodiazepines Scrn Urine Cocaine Screen U Cannabinoids Screen 08/20/21 19:50 WBC RBC Hgb Hct MCV MCH MCHC RDW Plt Count MPV Neut # (Auto) Lymph # (Auto) Cass # (Auto) Eos # (Auto) Baso # (Auto) Absolute Nucleated RBC Nucleated RBC % Sodium Potassium Chloride Carbon Dioxide Anion Gap BUN Creatinine Estimated GFR (MDRD) Glucose POC Whole Bld Glucose Calcium Total Bilirubin AST ALT Alkaline Phosphatase Total Protein Albumin Globulin Albumin/Globulin Ratio Lipase Urine Color YELLOW Urine Clarity CLEAR Urine pH 7.0 Ur Specific [place] 1.025 Urine Protein NEGATIVE Urine Glucose (UA) 100 H Urine Ketones 40 H Urine Occult Blood NEGATIVE Urine Nitrite NEGATIVE Urine Bilirubin NEGATIVE Urine Urobilinogen 0.2 (NORMAL) Ur Leukocyte Esterase NEGATIVE Ur Microscopic Review NOT INDICATED Urine Culture Comments NOT INDICATED Urine HCG, Qual NEGATIVE Urine Opiates Screen NEGATIVE Ur Oxycodone Screen NEGATIVE Urine Methadone Screen NEGATIVE Ur Propoxyphene Screen NEGATIVE Ur Barbiturates Screen NEGATIVE Ur Tricyclics Screen NEGATIVE Ur Phencyclidine Scrn NEGATIVE Ur Amphetamine Screen NEGATIVE U Methamphetamines Scrn NEGATIVE U Benzodiazepines Scrn NEGATIVE Urine Cocaine Screen NEGATIVE U Cannabinoids Screen POSITIVE H PD MEDICAL DECISION MAKING - ED course Complexity details: reviewed results, re-evaluated patient, considered differential, d/w patient ED course: 41-year-old female who has a history of diabetes as well as daily cannabis use presents the emergency department for evaluation of acute onset uncontrolled nausea and vomiting. She did report hemaaemesis but no melena or hematochezia. She was recently admitted to this hospital for similar thought to likely be cannabis hyperemesis syndrome. On presentation the patient was quite nauseated and vomiting into a bag. Initially she was given a liter of crystalloid followed by Zofran and then droperidol. When she had received the droperidol her nausea was markedly improved and she was offered to sips of clear liquids which she appeared to tolerate. Screening labs are most significant for a mild leukocytosis white count of just over 15,000. She has no fevers no findings of infection in the urine I suspect this is likely marginalization. Her chemistry was otherwise significant for mild hyperglycemia. Patient admits that she does not check her sugars at home and she has lost her glucometer. Once we had adequate symptom control I did spend time at the bedside with the patient discussing her history of cyclic vomiting syndrome which may be due to cannabis overuse however she denies that this could be contributing factor as she smokes it daily. She does have a number of antiemetics at home though she did not take them today prior to coming in. Abdominal exam was benign therefore we deferred advanced imaging. Patient will be discharged in stable condition. Recommendation to use antiemetics at home abstain from cannabis use. Emergent return precautions otherwise discussed Departure - Departure Disposition: Home, Self Care Clinical Impression: Cannabis dependence, daily use, Poorly controlled diabetes mellitus Nausea and vomiting Qualifiers: Vomiting type: unspecified Qualified Code(s): R11.2 - Nausea with vomiting, unspecified Condition: Stable Record reviewed to determine appropriate education?: Yes Prescriptions: Prochlorperazine [Compazine] 5 mg PO BID PRN #10 tablet PRN Reason: nausea Comments: Katherine aly are seen today in the emergency department for sudden onset nausea and vomiting. Here in the emergency department we did give you some IV fluids as well as a medication called Zofran and droperidol in order to get control of your nausea and vomiting. Following this you have been able to sip clear liquids. As we discussed at the bedside your cyclic vomiting in the setting of your diabetes can be, very serious problem. I do suspect that daily cannabis use is contributing to your uncontrolled nausea and vomiting and I do recommend that you abstain from further use. Please use the nausea medications at home. I did send a prescription for the Compazine to [facility] in [place]. Over the next 24 hours I recommend that you have frequent sips of clear liquids. Once you are free of any further vomiting syndromes for 12 hours or more you can begin advancing your diet with bananas, rice applesauce and then toast. It is important he continue close follow-up with your primary care provider for the longer-term evaluation and referral to the installation helper. If you find that you have uncontrolled vomiting, severe abdominal pain any fainting episodes or fevers then please return to the ER for second evaluation. Discharge Date/Time: 08/20/21 21:03
[2021-08-20 19:34] LABS: ALBUMIN 4.8 g/dL (3.2-5.5); ALBUMIN/GLOBULIN RATIO 1.3 (1.0-2.2); BILIRUBIN,TOTAL 0.5 mg/dL (0.2-1.0); CALCIUM 9.7 mg/dL (8.5-10.3); CREATININE 0.7 mg/dL (0.4-1.0); POTASSIUM 3.6 mmol/L (3.5-5.0); TOTAL PROTEIN 8.4 g/dL (6.7-8.2)
[2021-08-20 19:57] LABS: MUDS CUTOFF CONCENTRATIONS CUTOFF CONC BELOW:
[2021-08-20 20:00] LABS: BILIRUBIN,URINE NEGATIVE (NEGATIVE); GLUCOSE, URINE (UA) 100 mg/dL (NEGATIVE); KETONES,URINE (UA) 40 mg/dL (NEGATIVE); LEUKOCYTE ESTERASE, URINE NEGATIVE (NEGATIVE); NITRITE,URINE NEGATIVE (NEGATIVE); OCCULT BLOOD,URINE NEGATIVE (NEGATIVE); PROTEIN,URINE NEGATIVE (NEGATIVE); UROBILINOGEN,URINE 0.2 (NORMAL) E.U./dL (NORMAL)
[2021-08-20 20:02] LABS: CLARITY,URINE CLEAR (CLEAR); HCG UR QUAL NEGATIVE
[2021-08-20 20:16] LABS: AMPHETAMINE SCREEN,URINE NEGATIVE (NEGATIVE); BARBITURATE SCREEN,UR NEGATIVE (NEGATIVE); BENZODIAZEPINES SCREEN, URINE NEGATIVE (NEGATIVE); COCAINE SCREEN URINE NEGATIVE (NEGATIVE); METHADONE SCREEN, URINE NEGATIVE (NEGATIVE); METHAMPHETAMINES SCREEN, URINE NEGATIVE (NEGATIVE); OPIATE SCREEN, URINE NEGATIVE (NEGATIVE); OXYCODONE SCREEN, URINE NEGATIVE (NEGATIVE); PROPOXYPHENE SCREEN, URINE NEGATIVE (NEGATIVE); THC CANNABINOID SCREEN, URINE POSITIVE (NEGATIVE); TRICYCLIC ANTIDEPRESSANT,URINE NEGATIVE (NEGATIVE)
[2021-08-20 21:03] VITALS: BP 174/106
== END 2021-08-20 21:03 | disposition home or self-care (01) ==
LOC: ED 18:52
DX: F12.20 Cannabis dependence, uncomplicated (principal); R11.2 Nausea with vomiting, unspecified; E11.65 Type 2 diabetes mellitus with hyperglycemia; Z79.4 Long term (current) use of insulin; F17.200 Nicotine dependence, unspecified, uncomplicated
CPT/HCPCS: 36415; 80053; 80306; 81001; 81003; 81025; 83690; 85025; 87086; 96361; 96374; 96375; 99284

== ENCOUNTER 2022-01-18 16:42 | Emergency (ER) | payer MEDICAID ==
[2022-01-18] MEDS ORDERED: SODIUM CHLORIDE 0.9% 1,000 ML IV STA ×2 (17:01→19:19)
[2022-01-18] MEDS ORDERED: DROPERIDOL 5 MG/2 ML VIAL IVP STA (17:24)
--- NOTE | 2022-01-18 17:24 | ED Physician Documentation ---
History of Present Illness - Stated complaint Stated Complaint: VOMITING,LETHARGIC - Chief complaint Chief Complaint: Abd Pain - History obtained from History obtained from: Patient - History of Present Illness Timing: Today Pain level max: 0 Pain level now: 0 - Additonal information Additional information: Patient is a 41-year-old female who presents to the emergency department stating that she feels weak, lightheaded and nauseated. She states that this is happened several times in the past, has been told this is been secondary to cannabis use. Patient states that she has had negative endoscopies and colonoscopies. She is a diabetic as well. States her normal blood sugars in the 150s to 180s. No fevers. No chills. She states that this started suddenly while she was at work today. She states that she normally uses a small amount of cannabis to help her sleep at night. Review of Systems Ten Systems: 10 systems reviewed and negative Constitutional: denies: Fever Throat: denies: Sore throat Cardiac: denies: Chest pain / pressure, Palpitations Respiratory: denies: Dyspnea, Cough, Wheezing GI: reports: Abdominal Pain, Nausea, Vomiting. 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 - Present Medications Home Medications: Ambulatory Orders Medication Instructions Recorded Confirmed Insulin Glargine [Lantus Solostar] 20 units SQ DAILY 03/18/21 08/18/21 Pantoprazole [Protonix] 40 mg PO DAILY 03/18/21 08/18/21 Zolpidem [Ambien] 5 mg PO HS PRN 08/18/21 08/18/21 Prochlorperazine [Compazine] 5 mg PO BID PRN #10 tablet 08/20/21 Ondansetron Odt [Zofran] 4 mg TL Q6H PRN #10 tablet 01/18/22 Promethazine [Phenergan] 25 mg PO Q6H PRN #10 tab 01/18/22 - Allergies Allergies/Adverse Reactions: Allergies Allergy/AdvReac Type Severity Reaction Status Date / Time No Known Drug Allergies Allergy Verified 01/18/22 16:56 - Social History Does the pt smoke?: Yes Smoking Status: Current every day smoker Does the pt drink ETOH?: Yes Does the pt have substance abuse?: Yes PD ED PE NORMAL - Vitals Vital signs reviewed: Yes - General General: Alert and oriented X 3, No acute distress - HEENT HEENT: Moist mucous membranes - Neck Neck: Supple, no meningeal sign - Cardiac Cardiac: RRR, Strong equal pulses - Respiratory Respiratory: No respiratory distress, Clear bilaterally - Abdomen Abdomen: Soft, Non tender, Non distended - Derm Derm: Warm and dry - Extremities Extremities: No edema - Neuro Neuro: Alert and oriented X 3 - Psych Psych: Normal mood, Normal affect Results - Vitals Vitals: Vital Signs - 24 hr 01/18/22 01/18/22 01/18/22 16:46 17:33 18:30 Temperature 36 C L Heart Rate 96 99 95 Respiratory 26 H 31 H 24 Rate Blood Pressure 189/88 H 181/95 H 185/90 H O2 Saturation 98 100 99 01/18/22 01/18/22 01/18/22 19:00 19:30 20:00 Temperature Heart Rate 104 H 100 98 Respiratory 18 18 18 Rate Blood Pressure 181/78 H 215/105 H 171/79 H O2 Saturation 100 99 100 01/18/22 01/18/22 01/18/22 20:30 21:00 21:30 Temperature Heart Rate 97 96 98 Respiratory 18 18 18 Rate Blood Pressure 169/81 H 120/65 125/67 O2 Saturation 100 100 99 Oxygen O2 Source Room air - EKG (time done) 1655 Rate: Rate (enter#) (96) Rhythm: NSR [place]: Normal Intervals: Normal VA QRS: Normal Ischemia: Normal ST segments - Labs Labs: Laboratory Tests 01/18/22 01/18/22 01/18/22 16:53 17:32 17:32 WBC 16.7 H RBC 5.36 Hgb 15.9 Hct 45.3 MCV 84.5 MCH 29.7 MCHC 35.1 RDW 12.7 Plt Count 395 MPV 10.6 Neut # (Auto) 13.9 H Lymph # (Auto) 1.9 Dale # (Auto) 0.6 Eos # (Auto) 0.1 Baso # (Auto) 0.1 Absolute Nucleated RBC 0.00 Nucleated RBC % 0.0 VBG pH VBG pCO2 VBG pO2 VBG HCO3 VBG Total CO2 VBG O2 Saturation VBG Base Excess Sodium 136 Potassium 3.6 Chloride 99 L Carbon Dioxide 19 L Anion Gap 18.0 H BUN 17 Creatinine 0.7 Estimated GFR (MDRD) 91 Glucose 264 H POC Whole Bld Glucose 245 H Calcium 10.0 Total Bilirubin 0.7 AST 21 ALT 24 Alkaline Phosphatase 83 Total Protein 8.9 H Albumin 5.1 Globulin 3.8 Albumin/Globulin Ratio 1.3 Lipase 30 Urine Color Urine Clarity Urine pH Ur Specific [place] Urine Protein Urine Glucose (UA) Urine Ketones Urine Occult Blood Urine Nitrite Urine Bilirubin Urine Urobilinogen Ur Leukocyte Esterase Ur Microscopic Review Urine Culture Comments Serum Ketones 01/18/22 01/18/22 01/18/22 17:32 17:32 18:18 WBC RBC Hgb Hct MCV MCH MCHC RDW Plt Count MPV Neut # (Auto) Lymph # (Auto) [place] # (Auto) Eos # (Auto) Baso # (Auto) Absolute Nucleated RBC Nucleated RBC % VBG pH 7.393 VBG pCO2 36.0 L VBG pO2 33.5 VBG HCO3 21.5 L VBG Total CO2 22.6 L VBG O2 Saturation 68.8 VBG Base Excess -2.8 L Sodium Potassium Chloride Carbon Dioxide Anion Gap BUN Creatinine Estimated GFR (MDRD) Glucose POC Whole Bld Glucose Calcium Total Bilirubin AST ALT Alkaline Phosphatase Total Protein Albumin Globulin Albumin/Globulin Ratio Lipase Urine Color YELLOW Urine Clarity CLEAR Urine pH 8.0 H Ur Specific [place] 1.020 Urine Protein NEGATIVE Urine Glucose (UA) 500 H Urine Ketones >=80 H Urine Occult Blood NEGATIVE Urine Nitrite NEGATIVE Urine Bilirubin NEGATIVE Urine Urobilinogen 0.2 (NORMAL) Ur Leukocyte Esterase NEGATIVE Ur Microscopic Review NOT INDICATED Urine Culture Comments NOT INDICATED Serum Ketones SMALL H - Rads (name of study) CT abd/pelvis Radiology: Final report received, EMP read contemporaneously, See rad report PD MEDICAL DECISION MAKING - ED course Complexity details: reviewed results, re-evaluated patient, considered different ial, d/w patient, d/w family ED course: 41-year-old female presents to the emergency department with nausea vomiting and abdominal pain today. This started fairly suddenly. Unclear etiology. Could potentially be related to cannabinoid induced hyperemesis. Could also be related to her diabetes. Also could be related to another process. Does have a mild leukocytosis, likely secondary to the vomiting. She feels better after IV fluids, droperidol and Phenergan. She states that she has had normal endoscopies, colonoscopies and gastric emptying studies. Recommend that she follow-up with an loader demolder and supervisor insecticide for further care. Patient is well-appearing, nontoxic. Afebrile. Patient counseled regarding signs and symptoms for which I believe and urgent re-evaluation would be necessary. Patient with good understanding of and agreement to plan and is comfortable going home at this time This document was made in part using voice recognition software. While efforts are made to proofread this document, sound alike and grammatical errors may occur. Patient is tolerating p.o. without difficulty here. States she feels much better. Departure - Departure Disposition: 01 Home, Self Care Clinical Impression: Hyperglycemia, Dehydration Vomiting Qualifiers: Vomiting type: unspecified Nausea presence: with nausea Qualified Code(s): R11.2 - Nausea with vomiting, unspecified Condition: Good Instructions: ED Nausea Vomiting Follow-Up: Jenise Rodrigues ARNP [Primary Care Provider] - [facility] [Provider Group] [facility] [Provider Group] [facility] [Provider Group] Prescriptions: Promethazine [Phenergan] 25 mg PO Q6H PRN #10 tab PRN Reason: Nausea / Vomiting Ondansetron Odt [Zofran] 4 mg TL Q6H PRN #10 tablet PRN Reason: Nausea / Vomiting Comments: Please follow-up with your doctor for further care. The cause of your symptoms is unclear today. It is recommended that you follow-up with a supervisor insecticide as well as an loader demolder. There are our GI doctors and endocrine doctors at both [facility] and [facility]. Have also provided you the number to [facility] who is another primary care office on [place]. Your prescriptions were sent to [facility] in [place]. Discharge Date/Time: 01/18/22 21:30
[2022-01-18 17:40] LABS: BILIRUBIN,URINE NEGATIVE (NEGATIVE); GLUCOSE, URINE (UA) 500 mg/dL (NEGATIVE); KETONES,URINE (UA) >=80 mg/dL (NEGATIVE); LEUKOCYTE ESTERASE, URINE NEGATIVE (NEGATIVE); NITRITE,URINE NEGATIVE (NEGATIVE); OCCULT BLOOD,URINE NEGATIVE (NEGATIVE); PROTEIN,URINE NEGATIVE (NEGATIVE); UROBILINOGEN,URINE 0.2 (NORMAL) E.U./dL (NORMAL)
[2022-01-18 17:41] LABS: CLARITY,URINE CLEAR (CLEAR)
[2022-01-18 17:42] LABS: BASOPHILS # (AUTO) 0.1 10^3/uL (0.0-0.1); BASOPHILS % (AUTO) 0.7 %; EOSINOPHILS # (AUTO) 0.1 10^3/uL (0.0-0.7); EOSINOPHILS % (AUTO) 0.4 %; HCT - HEMATOCRIT 45.3 % (37.0-47.0); HGB - HEMOGLOBIN 15.9 g/dL (12.0-16.0); LYMPHOCYTES # (AUTO) 1.9 10^3/uL (1.5-3.5); LYMPHOCYTES % (AUTO) 11.6 %; MEAN CORPUSCULAR HEMOGLOBIN 29.7 pg (27.0-31.0); MEAN CORPUSCULAR HGB CONC 35.1 g/dL (32.0-36.0); MEAN CORPUSCULAR VOLUME 84.5 fL (81.0-99.0); MEAN PLATELET VOLUME 10.6 fL (7.9-10.8); MONOCYTES # (AUTO) 0.6 10^3/uL (0.0-1.0); MONOCYTES % (AUTO) 3.6 %; NEUTROPHILS # (AUTO) 13.9 10^3/uL (1.5-6.6); NEUTROPHILS % (AUTO) 83.3 %; PLT - PLATELET COUNT 395 10^3/uL (130-450); RED BLOOD COUNT 5.36 10^6/uL (4.20-5.40); RED CELL DISTRIBUTION WIDTH 12.7 % (12.0-15.0); WHITE BLOOD COUNT 16.7 x10^3/uL (4.8-10.8)
[2022-01-18 17:56] LABS: ALBUMIN 5.1 g/dL (3.2-5.5); ALBUMIN/GLOBULIN RATIO 1.3 (1.0-2.2); BILIRUBIN,TOTAL 0.7 mg/dL (0.2-1.0); CREATININE 0.7 mg/dL (0.4-1.0); POTASSIUM 3.6 mmol/L (3.5-5.0); TOTAL PROTEIN 8.9 g/dL (6.7-8.2)
[2022-01-18 18:26] LABS: VBG BASE EXCESS -2.8 mmol/L (-2 - +2); VBG HCO3 21.5 mmol/L (23-28); VBG OXYGEN SATURATION 68.8 % (60-80); VBG PH 7.393 (7.31-7.41); VBG PO2 33.5 mmHg (25-47); VBG TOTAL CO2 22.6 mmol/L (24-29)
[2022-01-18] MEDS ORDERED: HYDROmorphone 1 MG/ML CARPUJECT IVP STA (19:19)
[2022-01-18] MEDS ORDERED: PROMETHAZINE INJ 25 MG in SODIUM CHLORIDE 0.9% 50 ML IV STA (19:19)
[2022-01-18] MEDS ORDERED: PROMETHAZINE 25 MG/1 ML VIAL ONE (19:43)
--- NOTE | 2022-01-18 20:22 | CT Report ---
PROCEDURE: Abdomen/Pelvis W INDICATIONS: diffuse abd pain CONTRAST: IV CONTRAST: Optiray 320 ml: 100 PO CONTRAST: *NO PO CONTRAST TECHNIQUE: After the administration of intravenous contrast, 5 mm thick sections acquired from the diaphragms to the symphysis. 5 mm thick coronal and sagittal reformats were acquired. For radiation dose reducti on, the following was used: automated exposure control, adjustment of mA and/or kV according to ta ent size. COMPARISON: 07/17/2021, 06/04/2021. FINDINGS: Image quality: Excellent. Lung bases:There is minimal dependent atelectasis. Heart: Heart is normal in size. ABDOMEN: Liver:There is diffuse hypoattenuation of the liver consistent with fatty infiltration. Gallbladder: Within normal limits without calcified gallstones. Biliary ducts: No biliary ductal dilatation. Pancreas: Unremarkable. Spleen: Normal in size. Adrenal Glands: No adrenal nodules. Kidneys and Ureters: No hydronephrosis. Stomach and Bowel: Stomach, small bowel loops, and colon are normal in caliber and wall thickness. T he appendix is normal in appearance. There is colonic diverticulosis without acute diverticulitis. Peritoneum: No abnormal intraperitoneal fluid. No free air. Ventral Wall: There is a small fat-containing supraumbilical ventral abdominal hernia. Abdominal Nodes: No retroperitoneal or mesenteric adenopathy by size criteria. Vessels: Aorta and inferior vena cava are normal in size. PELVIS: Pelvic Organs: Unremarkable. Bladder: Unremarkable. Pelvic Nodes: No enlarged lymph nodes. Miscellaneous: No inguinal hernias are seen. Bones: Visualized osseous structures demonstrate no suspicious focal lesions. IMPRESSION: 1. No acute intra-abdominal abnormality. Specifically, no evidence of bowel obstruction. 2. No evidence of appendicitis. 3. Colonic diverticulosis without acute diverticulitis. 4. Hepatic steatosis. 5. Small fat-containing supraumbilical hernia. Reviewed by: Dustin Dave MD on 01/18/2022 8:21 PM PDT Approved by: Dustin Dave MD on 01/18/2022 8:21 PM PDT Station ID: [id number]
[2022-01-18 22:26] VITALS: BP 125/67
== END 2022-01-18 21:30 | disposition home or self-care (01) ==
LOC: ED 16:42
DX: R73.9 Hyperglycemia, unspecified (principal); E86.0 Dehydration; R11.2 Nausea with vomiting, unspecified; F17.200 Nicotine dependence, unspecified, uncomplicated
CPT/HCPCS: 36415; 74177; 80053; 81003; 82009; 82803; 83690; 85025; 93005; 96361; 96365; 96375; 99284; J1170; J7040; Q9967; 81001; 87086

== ENCOUNTER 2022-06-01 08:49 | Outpatient (CLI) | payer MEDICAID ==
[2022-06-01 12:52] LABS: BASOPHILS # (AUTO) 0.1 10^3/uL (0.0-0.1); BASOPHILS % (AUTO) 0.8 %; EOSINOPHILS # (AUTO) 0.7 10^3/uL (0.0-0.7); EOSINOPHILS % (AUTO) 5.5 %; HCT - HEMATOCRIT 47.3 % (37.0-47.0); HGB - HEMOGLOBIN 15.2 g/dL (12.0-16.0); LYMPHOCYTES # (AUTO) 3.7 10^3/uL (1.5-3.5); LYMPHOCYTES % (AUTO) 30.5 %; MEAN CORPUSCULAR HEMOGLOBIN 28.5 pg (27.0-31.0); MEAN CORPUSCULAR HGB CONC 32.1 g/dL (32.0-36.0); MEAN CORPUSCULAR VOLUME 88.7 fL (81.0-99.0); MEAN PLATELET VOLUME 11.2 fL (7.9-10.8); MONOCYTES # (AUTO) 0.5 10^3/uL (0.0-1.0); MONOCYTES % (AUTO) 4.1 %; NEUTROPHILS # (AUTO) 7.2 10^3/uL (1.5-6.6); NEUTROPHILS % (AUTO) 58.9 %; PLT - PLATELET COUNT 358 10^3/uL (130-450); RED BLOOD COUNT 5.33 10^6/uL (4.20-5.40); RED CELL DISTRIBUTION WIDTH 12.9 % (12.0-15.0); WHITE BLOOD COUNT 12.2 x10^3/uL (4.8-10.8)
[2022-06-01 13:30] LABS: ALBUMIN 4.4 g/dL (3.2-5.5); ALBUMIN/GLOBULIN RATIO 1.2 (1.0-2.2); ALKALINE PHOSPHATASE 98 IU/L (42-121); ALT ALANINE AMINOTRANSFERASE 19 IU/L (10-60); AST ASPARTATE AMINOTRANSFERASE 15 IU/L (10-42); BILIRUBIN,TOTAL 0.7 mg/dL (0.2-1.0); BUN - BLOOD UREA NITROGEN 17 mg/dL (6-20); CARBON DIOXIDE - CO2 24 mmol/L (21-32); CHLORIDE 100 mmol/L (101-111); CHOL/HDL RATIO 5.6 (<4.4); CHOLESTEROL 251 mg/dL; CREATININE 0.6 mg/dL (0.4-1.0); GFR - MDRD 109 (>89); GLUCOSE 305 mg/dL (70-100); HDL CHOLESTEROL 45 mg/dL; LDL CHOLESTEROL,CALCULATED 181 mg/dL; SODIUM 136 mmol/L (135-145); TRIGLYCERIDES 124 mg/dL; VLDL CHOLESTEROL 25 mg/dL
[2022-06-01 13:32] LABS: MICROALBUM/CREATININE RATIO,UR 11.7 ug/mg (<30.0); MICROALBUMIN,URINE 1.8 mg/dL (0-300.0)
[2022-06-01 13:44] LABS: THYROID STIMULATING HORMONE 1.83 uIU/mL (0.34-5.60)
[2022-06-01 13:46] LABS: ESTIMATED AVERAGE GLUCOSE 263 mg/dL (70-100); HEMOGLOBIN A1c% 10.8 % (4.27-6.07)
== END 2022-06-01 08:50 | disposition home or self-care (01) ==
LOC: LAB.N 08:49
PROVIDERS: ATTEND Nurse Practitioner
DX: E11.9 Type 2 diabetes mellitus without complications (principal); R53.83 Other fatigue; Z13.220 Encounter for screening for lipoid disorders
CPT/HCPCS: 36415; 80053; 80061; 82043; 82570; 83036; 83721; 84443; 85025

== ENCOUNTER 2022-07-14 08:14 | Emergency (ER) | payer MEDICAID ==
--- OUTSIDE RECORDS SUMMARY | 2022-07-14 08:47 | EXTERNAL MEDICAL SUMMARY RPT | Continuity of Care Document ---
:1980 Author Organization [facility] Address [address] [place] [address] Phone Care Team Providers Name Role Phone Rigo Chavarria Unavailable Unavailable Allergies and Intolerances date description facility type (no date) aspirin [facility] (unknown) Encounters No information. Functional Status No information. Immunizations No information. Medications No information. Problems No information. Procedures date description facility 2022-05-12 00:00 CT abdomen pelvis w [facility] l Results/Labs test date author facility value unit interpret ation Result panel 1 (unknown) (no date[facility]) Result panel 2 (unknown) (no date) (unknown[facility]) Result panel 3 (unknown) (no date) (unknown[facility]) Result panel 4 (unknown) (no date) (unknown[facility]) Result panel 5 (unknown) (no date) (unknown[facility]) Result panel 6 (unknown) (no date) (unknown[facility]) Result panel 7 (unknown) (no date) (unknown[facility]) Result panel 8 (unknown) (no date) (unknown[facility]) Result panel 9 (unknown) (no date) (unknown[facility]) Result panel 10 (unknown) (no date) (unknown[facility]) Result panel 11 (unknown) (no date) (unknown[facility]) Result panel 12 (unknown) (no date) (unknown[facility]) Result panel 13 (unknown) (no date) (unknown[facility]) Result panel 14 (unknown) (no date) (unknown[facility]) Result panel 15 (unknown) (no date) (unknown[facility]) Result panel 16 (unknown) (no date) (unknown[facility]) Result panel 17 (unknown) (no date) (unknown[facility]) Result panel 18 (unknown) (no date) (unknown[facility]) Result panel 19 (unknown) (no date) (unknown[facility]) Result panel 20 (unknown) (no date) (unknown[facility]) Result panel 21 (unknown) (no date) (unknown[facility]) Result panel 22 (unknown) (no date) (unknown[facility]) Result panel 23 (unknown) (no date) (unknown[facility]) Result panel 24 (unknown) (no date) (unknown[facility]) Result panel 25 (unknown) (no date) (unknown[facility]) Result panel 26 (unknown) (no date) (unknown[facility]) Result panel 27 (unknown) (no date) (unknown[facility]) Result panel 28 (unknown) (no date) (unknown[facility]) Result panel 29 (unknown) (no date) (unknown[facility]) Result panel 30 (unknown) (no date) (unknown[facility]) Result panel 31 (unknown) (no date) (unknown[facility]) Result panel 32 (unknown) (no date) (unknown[facility]) Result panel 33 (unknown) (no date) (unknown[facility]) Result panel 34 (unknown) (no date) (unknown[facility]) Result panel 35 (unknown) (no date) (unknown[facility]) Result panel 36 (unknown) (no date) (unknown[facility]) Result panel 37 (unknown) (no date) (unknown[facility]) Result panel 38 (unknown) (no date) (unknown[facility]) Result panel 39 (unknown) (no date) (unknown[facility]) Result panel 40 (unknown) (no date) (unknown[facility]) Result panel 41 (unknown) (no date) (unknown[facility]) Result panel 42 (unknown) (no date) (unknown[facility]) Result panel 43 (unknown) (no date) (unknown[facility]) Result panel 44 (unknown) (no date) (unknown[facility]) Result panel 45 (unknown) (no date) (unknown[facility]) Result panel 46 (unknown) (no date) (unknown[facility]) Result panel 47 (unknown) (no date) (unknown[facility]) Result panel 48 (unknown) (no date) (unknown[facility]) Result panel 49 (unknown) (no date) (unknown[facility]) Result panel 50 (unknown) (no date) (unknown[facility]) Result panel 51 (unknown) (no date) (unknown[facility]) Result panel 52 (unknown) (no date) (unknown[facility]) Result panel 53 (unknown) (no date) (unknown[facility]) Result panel 54 (unknown) (no date) (unknown[facility]) Result panel 55 (unknown) (no date) (unknown[facility]) Result panel 56 (unknown) (no date) (unknown[facility]) Result panel 57 (unknown) (no date) (unknown[facility]) Result panel 58 (unknown) (no date) (unknown[facility]) Result panel 59 (unknown) (no date) (unknown[facility]) Result panel 60 (unknown) (no date) (unknown[facility]) Result panel 61 (unknown) (no date) (unknown[facility]) Result panel 62 (unknown) (no date) (unknown[facility]) Result panel 63 (unknown) (no date) (unknown[facility]) Result panel 64 (unknown) (no date) (unknown[facility]) Result panel 65 (unknown) (no date) (unknown[facility]) Result panel 66 (unknown) (no date) (unknown[facility]) Result panel 67 (unknown) (no date) (unknown[facility]) Result panel 68 (unknown) (no date) (unknown[facility]) Result panel 69 (unknown) (no date) (unknown[facility]) Result panel 70 (unknown) (no date) (unknown[facility]) Result panel 71 (unknown) (no date) (unknown[facility]) Result panel 72 (unknown) (no date) (unknown[facility]) Result panel 73 (unknown) (no date) (unknown[facility]) Result panel 74 (unknown) (no date) (unknown[facility]) Result panel 75 (unknown) (no date) (unknown[facility]) Result panel 76 (unknown) (no date) (unknown[facility]) Result panel 77 (unknown) (no date) (unknown[facility]) Result panel 78 (unknown) (no date) (unknown[facility]) Result panel 79 (unknown) (no date) (unknown[facility]) Result panel 80 (unknown) (no date) (unknown[facility]) Result panel 81 (unknown) (no (unknown) (unknown) (no value) (units (unk nown) date) unknown) (unknown) (no (unknown) (unknown) [id number] (units (unkno wn) date) unknown) (unknown) (no (unknown) (unknown) 05/12/22 (units (unkno wn) date) unknown) (unknown) (no (unknown) (unknown) 1. Diverticulosis (units (unknown) date) without evidence of unknown) diverticulitis (unknown) (no (unknown) (unknown) [address] [place] [address] (units (unknown) date) unknown) (unknown) (no (unknown) (unknown) 2. Additional (units ( unknown) date) chronic findings as unknown) above (unknown) (no (unknown) (unknown) Abdominal wall: (units (unknown) date) Small ventral unknown) hernia measures 2.5 cm, and contains fat without (unknown) (no (unknown) (unknown) Accession Number: (units (unknown) date) [id number] unknown) (unknown) (no (unknown) (unknown) Adrenals: Normal (units (unknown) date) morphology and unknown) density. (unknown) (no (unknown) (unknown) After the (units (unkn own) date) administration of unknown) intravenous contrast, axial sections acquired from (unknown) (no (unknown) (unknown) Age/Sex: 41 / F (units (unknown) date) Date of Service: unknown) (unknown) (no (unknown) (unknown) [place], [place] (units ( unknown) date) [id number] unknown) (unknown) (no (unknown) (unknown) Appendix: No (units (u nknown) date) findings to suggest unknown) acute appendicitis. (unknown) (no (unknown) (unknown) Approved by: [place] (units (unknown) date) Pineda Solomon on unknown) 05/12/2022 at 11:24 (unknown) (no (unknown) (unknown) Biliary system: No (units (unknown) date) calcified unknown) cholelithiasis or pericholecystic inflammation. (unknown) (no (unknown) (unknown) [facility]PAR[facility]: [facility], [facility], CT unknown) ABDOMEN PELVIS W CON, 02/06/2021, 21:27. (unknown) (no (unknown) (unknown) CT Scan Report (units (unknown) date) unknown) (unknown) (no (unknown) (unknown) : 1980 (units (unknown) date) Acct:[id number] unknown) (unknown) (no (unknown) (unknown) Degenerative disc (units (unknown) date) unknown) (unknown) (no (unknown) (unknown) FINDINGS: (units (unkn own) date) unknown) (unknown) (no (unknown) (unknown) For (units (unkno wn) date) unknown) (unknown) (no (unknown) (unknown) Gastrointestinal (units (unknown) date) system: The bowel unknown) is unremarkable without evidence of bowel (unknown) (no (unknown) (unknown) IMPRESSION: (units (un known) date) unknown) (unknown) (no (unknown) (unknown) INDICATIONS: Left (units (unknown) date) lower quadrant unknown) pain, diverticulitis (unknown) (no (unknown) (unknown) [facility] (units (unknown) date) unknown) (unknown) (no (unknown) (unknown) Liver: The liver (units (unknown) date) is diffusely unknown) decreased in attenuation without focal mass (unknown) (no (unknown) (unknown) Loc: ED (units (unkno wn) date) unknown) (unknown) (no (unknown) (unknown) Lower thorax: The (units (unknown) date) lung bases are unknown) clear. Heart size normal. No hiatal hernia. (unknown) (no (unknown) (unknown) Musculoskeletal: (units (unknown) date) Normal bone unknown) mineralization. No acute fractures. (unknown) (no (unknown) (unknown) No free (units (unkno wn) date) unknown) (unknown) (no (unknown) (unknown) No intra (units (unkno wn) date) unknown) (unknown) (no (unknown) (unknown) Ordering Provider: (units (unknown) date) Rigo Chavarria MD unknown) (unknown) (no (unknown) (unknown) PROCEDURE: CT (units ( unknown) date) ABDOMEN PELVIS W unknown) CON (unknown) (no (unknown) (unknown) Pancreas: (units (unkn own) date) Unremarkable unknown) without mass or inflammation evident. (unknown) (no (unknown) (unknown) Patient: (units (unkno wn) date) Katherine Silva M unknown) MR#: [id number] (unknown) (no (unknown) (unknown) Peritoneal spaces: (units (unknown) date) No mesenteric or unknown) retroperitoneal adenopathy. No free air. (unknown) (no (unknown) (unknown) Procedure: CT (units ( unknown) date) abdomen pelvis w unknown) con (unknown) (no (unknown) (unknown) Reproductive (units (u nknown) date) system: unknown) Unremarkable as visualized. (unknown) (no (unknown) (unknown) Signed (units (unkno wn) date) unknown) (unknown) (no (unknown) (unknown) Spleen: Normal in (units (unknown) date) size and density. unknown) (unknown) (no (unknown) (unknown) TECHNIQUE: (units (unk nown) date) unknown) (unknown) (no (unknown) (unknown) Urinary system: (units (unknown) date) Normal renal size unknown) and attenuation. No renal calculi, (unknown) (no (unknown) (unknown) Vasculature: The (units (unknown) date) IVC, aorta and unknown) iliac vasculature are unremarkable. (unknown) (no (unknown) (unknown) adjustment (units (unk nown) date) unknown) (unknown) (no (unknown) (unknown) bases to the pubic (units (unknown) date) symphysis. Coronal unknown) and sagittal reformats were performed. (unknown) (no (unknown) (unknown) bowel (units (unkno wn) date) unknown) (unknown) (no (unknown) (unknown) central (units (unkno wn) date) unknown) (unknown) (no (unknown) (unknown) disease and (units (un known) date) arthropathy in the unknown) lower lumbar spine results in moderate to severe (unknown) (no (unknown) (unknown) fluid. (units (unkno wn) date) unknown) (unknown) (no (unknown) (unknown) from the (units (unkno wn) date) unknown) (unknown) (no (unknown) (unknown) hydronephrosis, or (units (unknown) date) unknown) (unknown) (no (unknown) (unknown) involvement (units (un known) date) unknown) (unknown) (no (unknown) (unknown) lesion. (units (unkno wn) date) unknown) (unknown) (no (unknown) (unknown) obstruction (units (un known) date) unknown) (unknown) (no (unknown) (unknown) of mA and/or kV (units (unknown) date) according to unknown) patient size. (unknown) (no (unknown) (unknown) or extrahepatic (units (unknown) date) bile duct unknown) dilatation. (unknown) (no (unknown) (unknown) or inflammation. (units (unknown) date) The stomach appears unknown) unremarkable. Multiple diverticula arise (unknown) (no (unknown) (unknown) radiation dose (units (unknown) date) reduction, the unknown) following was used: automated exposure control, (unknown) (no (unknown) (unknown) sigmoid colon (units ( unknown) date) without evidence of unknown) diverticulitis. (unknown) (no (unknown) (unknown) solid mass (units (unk nown) date) present. Urinary unknown) bladder unremarkable. (unknown) (no (unknown) (unknown) stenosis L4-5 (units ( unknown) date) unknown) (unknown) (no (unknown) (unknown) the lung (units (unkno wn) date) unknown) Result panel 82 (unknown) (no date) (unknown) (unknown) 0 /ul (unkn own) (unknown) (no date) (unknown) (unknown) 0.1 % (unkn own) (unknown) (no date) (unknown) (unknown) 0.6 % (unkn own) (unknown) (no date) (unknown) (unknown) 100 /ul (unkn own) (unknown) (no date) (unknown) (unknown) 1100 /ul (unkn own) (unknown) (no date) (unknown) (unknown) 13.3 % (unkn own) (unknown) (no date) (unknown) (unknown) 16.9 g/dl (unkn own) (unknown) (no date) (unknown) (unknown) 84910 /ul (unkn own) (unknown) (no date) (unknown) (unknown) 21.1 % (unkn own) (unknown) (no date) (unknown) (unknown) 22.9 x10 3/ul (unkn own) (unknown) (no date) (unknown) (unknown) 29.3 pg (unkn own) (unknown) (no date) (unknown) (unknown) 33.7 % (unkn own) (unknown) (no date) (unknown) (unknown) 4.7 % (unkn own) (unknown) (no date) (unknown) (unknown) 432 x10 3/ul (unkn own) (unknown) (no date) (unknown) (unknown) 4800 /ul (unkn own) (unknown) (no date) (unknown) (unknown) 5.78 x10 6/ul (unkn own) (unknown) (no date) (unknown) (unknown) 50.2 % (unkn own) (unknown) (no date) (unknown) (unknown) 73.5 % (unkn own) (unknown) (no date) (unknown) (unknown) 86.9 fl (unkn own) Result panel 83 (unknown) (no (unknown) (unknown) (no value) (units (unk nown) date) unknown) (unknown) (no (unknown) (unknown) (Mag-Al Plus) (units ( unknown) date) unknown) (unknown) (no (unknown) (unknown) 05/12/22 10:33 (units (unknown) date) unknown) (unknown) (no (unknown) (unknown) 05/12/22 10:41 (units (unknown) date) unknown) (unknown) (no (unknown) (unknown) 05/12/22 10:42 (units (unknown) date) unknown) (unknown) (no (unknown) (unknown) 05/12/22 (units (unkno wn) date) Range/Units unknown) (unknown) (no (unknown) (unknown) 05/12/22 (units (unkno wn) date) unknown) (unknown) (no (unknown) (unknown) [id number] (units (unkno wn) date) unknown) (unknown) (no (unknown) (unknown) 05:57 (units (unkno wn) date) unknown) (unknown) (no (unknown) (unknown) 1 tab PO Q4-6H (units (unknown) date) PRN (Reason: unknown) pain) Qty: 10 0RF (unknown) (no (unknown) (unknown) 1,000 mg PO BID (units (unknown) date) unknown) (unknown) (no (unknown) (unknown) 10:33 (units (unkno wn) date) unknown) (unknown) (no (unknown) (unknown) 15 unit SUBCUT (units (unknown) date) BEDTIME Qty: 3 unknown) 0RF (unknown) (no (unknown) (unknown) 200 mg-200 mg-20 (units (unknown) date) mg/5 mL oral susp unknown) (unknown) (no (unknown) (unknown) 24-48 hours. (units (u nknown) date) Patient reports unknown) multiple prior similar presentation for similar (unknown) (no (unknown) (unknown) 30 ml PO Q6HR (units ( unknown) date) PRN (Reason: unknown) Dyspepsia) Qty: 500 0RF (unknown) (no (unknown) (unknown) 4 mg PO TID-QID (units (unknown) date) PRN (Reason: unknown) nausea and vomiting) Qty: 10 0RF (unknown) (no (unknown) (unknown) 40 mg PO BID (units (u nknown) date) Qty: 60 0RF unknown) (unknown) (no (unknown) (unknown) 41-year-old (units (un known) date) female presenting unknown) with nausea, vomiting, and diarrhea. Patient (unknown) (no (unknown) (unknown) 650 mg PO Q4HR (units (unknown) date) PRN (Reason: As unknown) Needed For Fever/Mild Pain) Qty: 20 0RF (unknown) (no (unknown) (unknown) ABD: (units (unkno wn) date) Non-distended, unknown) tender over the left lower quadrant (unknown) (no (unknown) (unknown) Age/Sex: 41 / F (units (unknown) date) unknown) (unknown) (no (unknown) (unknown) Allergies (units (unkn own) date) unknown) (unknown) (no (unknown) (unknown) Allergy/AdvReac (units (unknown) date) Type Severity unknown) Reaction Status Date / Time (unknown) (no (unknown) (unknown) Baso # (Auto) (units ( unknown) date) 100 (0-100) /uL unknown) (unknown) (no (unknown) (unknown) Baso % (Auto) (units ( unknown) date) 0.6 (0-2) % unknown) (unknown) (no (unknown) (unknown) Blood Pressure (units (unknown) date) 190/90 H 05/12/22 unknown) 05:57 (unknown) (no (unknown) (unknown) Blood Pressure (units (unknown) date) 190/90 H unknown) (unknown) (no (unknown) (unknown) CBC Auto Diff (units ( unknown) date) [Complete Blood unknown) Count AUTO DIFF] Stat (unknown) (no (unknown) (unknown) CMP (units (unkno wn) date) [Comprehensive unknown) Metabolic Panel] Stat (unknown) (no (unknown) (unknown) CT abdomen (units (unk nown) date) pelvis w con Stat unknown) (unknown) (no (unknown) (unknown) CV: Well (units (unkno wn) date) perfused unknown) peripherally, no cyanosis present (unknown) (no (unknown) (unknown) Chief complaint: (units (unknown) date) Nausea/Vomiting/D unknown) iarrhea (unknown) (no (unknown) (unknown) Congestive heart (units (unknown) date) failure unknown) (unknown) (no (unknown) (unknown) Constitutional, (units (unknown) date) Eyes, ENT, unknown) Pulmonary, Cardiovascular, Gastrointestinal, Renal, (unknown) (no (unknown) (unknown) Constitutional: (units (unknown) date) interactive unknown) (unknown) (no (unknown) (unknown) Course (units (unkno wn) date) unknown) (unknown) (no (unknown) (unknown) Covid-19 + FLU (units (unknown) date) A/B + RSV - PCR unknown) Stat (unknown) (no (unknown) (unknown) : 1980 (units (unknown) date) Acct:[id number] unknown) (unknown) (no (unknown) (unknown) Date of Service: (units (unknown) date) 05/12/22 unknown) (unknown) (no (unknown) (unknown) Departure (units (unkn own) date) unknown) (unknown) (no (unknown) (unknown) Diabetes (units (unkno wn) date) unknown) (unknown) (no (unknown) (unknown) Discharge Plan (units (unknown) date) unknown) (unknown) (no (unknown) (unknown) Discontinued (units (u nknown) date) Medications unknown) (unknown) (no (unknown) (unknown) ED Orders (units (unkn own) date) unknown) (unknown) (no (unknown) (unknown) EKG-12 Lead Stat (units (unknown) date) unknown) (unknown) (no (unknown) (unknown) ER Physician: (units ( unknown) date) Rigo Chavarria MD unknown) (unknown) (no (unknown) (unknown) EYES: No scleral (units (unknown) date) icterus unknown) (unknown) (no (unknown) (unknown) Emergency Report (units (unknown) date) unknown) (unknown) (no (unknown) (unknown) Endocrine, (units (unk nown) date) Genitourinary, unknown) Musculoskeletal, Neurologic, Skin, and Psychiatric s (unknown) (no (unknown) (unknown) Eos # (Auto) 0 (units (unknown) date) (0-450) /uL unknown) (unknown) (no (unknown) (unknown) Eos % (Auto) 0.1 (units (unknown) date) L (2-4) % unknown) (unknown) (no (unknown) (unknown) Exam Narrative: (units (unknown) date) unknown) (unknown) (no (unknown) (unknown) Exam (units (unkno wn) date) unknown) (unknown) (no (unknown) (unknown) Family History (units (unknown) date) (Reviewed unknown) 05/12/22 @ 10:51 by Rigo Chavarria MD) (unknown) (no (unknown) (unknown) Father (units (unknown) date) Parkinsons unknown) disease (unknown) (no (unknown) (unknown) Fever/Mild Pain (units (unknown) date) #20 tabs unknown) (unknown) (no (unknown) (unknown) General (units (unkno wn) date) unknown) (unknown) (no (unknown) (unknown) HENT: Moist (units (un known) date) mucous membranes unknown) (unknown) (no (unknown) (unknown) HPI - (units (unkno wn) date) Nausea/Vomiting/D unknown) iarrhea (unknown) (no (unknown) (unknown) HPI Narrative: (units (unknown) date) unknown) (unknown) (no (unknown) (unknown) HSV (herpes (units (un known) date) simplex virus) unknown) anogenital infection (unknown) (no (unknown) (unknown) Hct 50.2 H (units (unk nown) date) (36-46) % unknown) (unknown) (no (unknown) (unknown) Hgb 16.9 H (units (unk nown) date) (12.0-16.0) g/dL unknown) (unknown) (no (unknown) (unknown) History of (units (unk nown) date) Present Illness unknown) (unknown) (no (unknown) (unknown) History of (units (unk nown) date) wisdom tooth unknown) extraction (unknown) (no (unknown) (unknown) Home Medications (units (unknown) date) unknown) (unknown) (no (unknown) (unknown) Initial Vital (units ( unknown) date) Signs unknown) (unknown) (no (unknown) (unknown) Initial Vital (units ( unknown) date) Signs: unknown) (unknown) (no (unknown) (unknown) [facility] (units (unknown) date) [address] unknown) [place] [address] (unknown) (no (unknown) (unknown) Lab Data (units (unkno wn) date) unknown) (unknown) (no (unknown) (unknown) Lab Results (units (un known) date) unknown) (unknown) (no (unknown) (unknown) Labs: (units (unkno wn) date) unknown) (unknown) (no (unknown) (unknown) Lantus Solostar (units (unknown) date) U-100 Insulin 100 unknown) unit/mL (3 mL) Insulin Pen (unknown) (no (unknown) (unknown) Lipase Stat (units (un known) date) unknown) (unknown) (no (unknown) (unknown) Lymph # (Auto) (units (unknown) date) 4800 H unknown) ([id number]) /uL (unknown) (no (unknown) (unknown) Lymph % (Auto) (units (unknown) date) 21.1 L (25-40) % unknown) (unknown) (no (unknown) (unknown) MCH 29.3 (26-34) (units (unknown) date) PG unknown) (unknown) (no (unknown) (unknown) MCHC 33.7 (units (unkn own) date) (30-36) % unknown) (unknown) (no (unknown) (unknown) MCV 86.9 (units (unkno wn) date) (80-100) fL unknown) (unknown) (no (unknown) (unknown) MDM - (units (unkno wn) date) Nausea/Vomiting/D unknown) iarrhea (unknown) (no (unknown) (unknown) MS: No gross (units (u nknown) date) deformities, no unknown) asymmetric edema noted (unknown) (no (unknown) (unknown) Medical History (units (unknown) date) (Reviewed unknown) 05/12/22 @ 10:51 by Rigo Chavarria MD) (unknown) (no (unknown) (unknown) Medication (units (unk nown) date) Instructions unknown) Recorded Confirmed (unknown) (no (unknown) (unknown) Medication (units (unk nown) date) Instructions unknown) Recorded (unknown) (no (unknown) (unknown) Metoclopramide (units (unknown) date) HCl unknown) (Metoclopramide 10 Mg/2 Ml Inj) 10 mg IV NOW ONE (unknown) (no (unknown) (unknown) Mode of arrival: (units (unknown) date) Ambulatory unknown) (unknown) (no (unknown) (unknown) Wise # (Auto) (units ( unknown) date) 1100 H (0-900) unknown) /uL (unknown) (no (unknown) (unknown) Wise % (Auto) (units ( unknown) date) 4.7 (3-14) % unknown) (unknown) (no (unknown) (unknown) Mother (units (unknown) date) Diabetes mellitus unknown) (unknown) (no (unknown) (unknown) NECK: no masses (units (unknown) date) unknown) (unknown) (no (unknown) (unknown) NEURO: Follows (units (unknown) date) simple commands, unknown) moves extremities, interactive with exam (unknown) (no (unknown) (unknown) Narrative (units (unkn own) date) unknown) (unknown) (no (unknown) (unknown) Narrative: (units (unk nown) date) unknown) (unknown) (no (unknown) (unknown) Neut # (Auto) (units ( unknown) date) 81987 H unknown) ([id number]) /uL (unknown) (no (unknown) (unknown) Neut % (Auto) (units ( unknown) date) 73.5 (50-75) % unknown) (unknown) (no (unknown) (unknown) No Action (units (unkn own) date) unknown) (unknown) (no (unknown) (unknown) Ordered: (units (unkno wn) date) unknown) (unknown) (no (unknown) (unknown) Orders (units (unkno wn) date) unknown) (unknown) (no (unknown) (unknown) Oxygen Delivery (units (unknown) date) Method 05/12/22 unknown) 05:57 (unknown) (no (unknown) (unknown) Oxygen Delivery (units (unknown) date) Method Room Air unknown) (unknown) (no (unknown) (unknown) PSYCH: (units (unkno wn) date) Appropriate unknown) affect (unknown) (no (unknown) (unknown) PULM: Unlabored (units (unknown) date) respirations, unknown) symmetric chest rise (unknown) (no (unknown) (unknown) Patient History (units (unknown) date) unknown) (unknown) (no (unknown) (unknown) Patient: (units (unkno wn) date) Katherine Silva unknown) MR#: [id number] (unknown) (no (unknown) (unknown) Plt Count 432 H (units (unknown) date) (150-400) X103/uL unknown) (unknown) (no (unknown) (unknown) Prescriptions: (units (unknown) date) unknown) (unknown) (no (unknown) (unknown) Previous Rx's (units ( unknown) date) unknown) (unknown) (no (unknown) (unknown) Pulse Oximetry (units (unknown) date) 94 05/12/22 05:57 unknown) (unknown) (no (unknown) (unknown) Pulse Oximetry (units (unknown) date) 94 unknown) (unknown) (no (unknown) (unknown) Pulse Rate 115 H (units (unknown) date) 05/12/22 05:57 unknown) (unknown) (no (unknown) (unknown) Pulse Rate 115 H (units (unknown) date) unknown) (unknown) (no (unknown) (unknown) RBC 5.78 H (units (unk nown) date) (4.0-5.2) X106/uL unknown) (unknown) (no (unknown) (unknown) RDW 13.3 (units (unkno wn) date) (11.6-14.8) % unknown) (unknown) (no (unknown) (unknown) Related Data (units (u nknown) date) unknown) (unknown) (no (unknown) (unknown) Respiratory Rate (units (unknown) date) 20 05/12/22 05:57 unknown) (unknown) (no (unknown) (unknown) Respiratory Rate (units (unknown) date) 20 unknown) (unknown) (no (unknown) (unknown) Result diagrams: (units (unknown) date) unknown) (unknown) (no (unknown) (unknown) Review of (units (unkn own) date) Systems unknown) (unknown) (no (unknown) (unknown) SKIN: Warm and (units (unknown) date) dry. unknown) (unknown) (no (unknown) (unknown) Signed By: (units (unk nown) date) unknown) (unknown) (no (unknown) (unknown) Smoking Status: (units (unknown) date) Current every day unknown) smoker (unknown) (no (unknown) (unknown) Social History (units (unknown) date) (Reviewed unknown) 05/12/22 @ 10:51 by Rigo Chavarria MD) (unknown) (no (unknown) (unknown) Sodium Chloride (units (unknown) date) (Normal Saline unknown) 0.9%) 1,000 mls @ 1,000 mls/hr IV BOLUS ONE (unknown) (no (unknown) (unknown) Solostar U-100 (units (unknown) date) Insulin) unknown) (unknown) (no (unknown) (unknown) Source: patient (units (unknown) date) unknown) (unknown) (no (unknown) (unknown) Stated (units (unkno wn) date) complaint: n/v unknown) possible ulcers (unknown) (no (unknown) (unknown) Stop: 05/12/22 (units (unknown) date) 10:42 unknown) (unknown) (no (unknown) (unknown) Stop: 05/12/22 (units (unknown) date) 11:40 unknown) (unknown) (no (unknown) (unknown) Substance Use (units ( unknown) date) Type: marijuana unknown) (unknown) (no (unknown) (unknown) Surgical History (units (unknown) date) (Reviewed unknown) 05/12/22 @ 10:51 by Rigo Chavarria MD) (unknown) (no (unknown) (unknown) Temperature 99 F (units (unknown) date) 05/12/22 05:57 unknown) (unknown) (no (unknown) (unknown) Temperature 99 F (units (unknown) date) unknown) (unknown) (no (unknown) (unknown) Time Seen by (units (u nknown) date) Provider: unknown) 05/12/22 10:34 (unknown) (no (unknown) (unknown) Vital Signs - 8 (units (unknown) date) hr unknown) (unknown) (no (unknown) (unknown) Vital Signs (units (un known) date) unknown) (unknown) (no (unknown) (unknown) Vital signs: (units (u nknown) date) unknown) (unknown) (no (unknown) (unknown) Vitals reviewed. (units (unknown) date) Nursing note unknown) reviewed (unknown) (no (unknown) (unknown) WBC 22.9 H (units (unk nown) date) (4.5-11.0) unknown) X103/uL (unknown) (no (unknown) (unknown) [Embedded Image (units (unknown) date) Not Available] unknown) (unknown) (no (unknown) (unknown) acetaminophen (units ( unknown) date) 325 mg Tablet unknown) (unknown) (no (unknown) (unknown) acetaminophen (units ( unknown) date) 325 mg tablet 650 unknown) mg PO Q4HR PRN As Needed For 12/01/20 (unknown) (no (unknown) (unknown) alcohol intake (units (unknown) date) frequency: unknown) holidays/special occasions only (unknown) (no (unknown) (unknown) alcohol intake: (units (unknown) date) current unknown) (unknown) (no (unknown) (unknown) alum-mag (units (unkno wn) date) hydroxide-simeth unknown) [Mag-Al Plus] 200-200-20 mg/5 mL suspension (unknown) (no (unknown) (unknown) aluminum-mag (units (u nknown) date) hydroxide-simethi unknown) cone 30 ml PO Q6HR PRN Dyspepsia #500 mL 12/01/20 (unknown) (no (unknown) (unknown) aspirin AdvReac (units (unknown) date) Verified 02/06/21 unknown) 19:01 (unknown) (no (unknown) (unknown) diarrhea, (units (unkn own) date) cramping type unknown) abdominal pain, this has localized somewhat to the left (unknown) (no (unknown) (unknown) diverticulitis. (units (unknown) date) Patient reports unknown) developing blood-tinged stools over the last (unknown) (no (unknown) (unknown) household (units (unkn own) date) members: unknown) significant other and children (unknown) (no (unknown) (unknown) hydrocodone 5 (units ( unknown) date) mg-acetaminophen unknown) 325 1 tab PO Q4-6H PRN pain #10 tabs 02/07/21 (unknown) (no (unknown) (unknown) hydrocodone-acet (units (unknown) date) aminophen 5-325 unknown) mg tablet (unknown) (no (unknown) (unknown) insulin glargine (units (unknown) date) 100 unit/mL (3 15 unknown) unit (0.15 mL) SUBCUT BEDTIME 12/01/20 (unknown) (no (unknown) (unknown) lower quadrant (units (unknown) date) of the abdomen, unknown) patient does have history of prior (unknown) (no (unknown) (unknown) mL) subcutaneous (units (unknown) date) pen (Lantus #3 mL unknown) (unknown) (no (unknown) (unknown) metformin 1,000 (units (unknown) date) mg tablet unknown) extended release 24hr (unknown) (no (unknown) (unknown) metformin 1,000 (units (unknown) date) mg unknown) tablet,extended 1,000 mg PO BID 11/29/20 11/29/20 (unknown) (no (unknown) (unknown) mg tablet (units (unkn own) date) unknown) (unknown) (no (unknown) (unknown) ondansetron 4 mg (units (unknown) date) disintegrating 4 unknown) mg PO TID-QID PRN nausea and 02/07/21 (unknown) (no (unknown) (unknown) ondansetron 4 mg (units (unknown) date) tablet,disintegra unknown) ting (unknown) (no (unknown) (unknown) pantoprazole 40 (units (unknown) date) mg tablet,delayed unknown) 40 mg PO BID #60 tabs 12/01/20 (unknown) (no (unknown) (unknown) pantoprazole (units (u nknown) date) [Protonix] 40 mg unknown) tablet,delayed release (DR/EC) (unknown) (no (unknown) (unknown) release (units (unkno wn) date) (Protonix) unknown) (unknown) (no (unknown) (unknown) release 24hr (units (u nknown) date) unknown) (unknown) (no (unknown) (unknown) reports symptoms (units (unknown) date) since Wednesday, unknown) developed initially watery stools and watery (unknown) (no (unknown) (unknown) symptoms. No (units (u nknown) date) measured fevers. unknown) (unknown) (no (unknown) (unknown) tablet vomiting (units (unknown) date) #10 tabs unknown) (unknown) (no (unknown) (unknown) tobacco type: (units ( unknown) date) cigarettes unknown) (unknown) (no (unknown) (unknown) ystems were (units (un known) date) reviewed and unknown) negative unless indicated in the HPI above. Result panel 84 (unknown) (no date) (unknown) (unknown) > 60 ml/min (unkn own) (unknown) (no date) (unknown) (unknown) > 60 ml/min (unkn own) (unknown) (no date) (unknown) (unknown) 0.63 mg/dl (unkn own) (unknown) (no date) (unknown) (unknown) 1.2 (units unknown) (unknown) (unknown) (no date) (unknown) (unknown) 1.3 mg/dl (unkn own) (unknown) (no date) (unknown) (unknown) 104 u/l (unkn own) (unknown) (no date) (unknown) (unknown) 130 mmol/l (unkn own) (unknown) (no date) (unknown) (unknown) 136 u/l (unkn own) (unknown) (no date) (unknown) (unknown) 24 mg/dl (unkn own) (unknown) (no date) (unknown) (unknown) 28 mmol/l (unkn own) (unknown) (no date) (unknown) (unknown) 3.6 mmol/l (unkn own) (unknown) (no date) (unknown) (unknown) 31 iu/l (unkn own) (unknown) (no date) (unknown) (unknown) 34 iu/l (unkn own) (unknown) (no date) (unknown) (unknown) 38.1 (units unknown) (unknown) (unknown) (no date) (unknown) (unknown) 395 mg/dl (unkn own) (unknown) (no date) (unknown) (unknown) 395 mg/dl (unkn own) (unknown) (no date) (unknown) (unknown) 4.2 g/dl (unkn own) (unknown) (no date) (unknown) (unknown) 5.1 g/dl (unkn own) (unknown) (no date) (unknown) (unknown) 85 mmol/l (unkn own) (unknown) (no date) (unknown) (unknown) 9.0 mg/dl (unkn own) (unknown) (no date) (unknown) (unknown) 9.3 g/dl (unkn own) Result panel 85 (unknown) (no date) (unknown) (unknown) 1.5 mmol/l (unkn own) Result panel 86 (unknown) (no date) (unknown) (unknown) Flu A (units (unkn own) NEGATIVE unknown) (unknown) (no date) (unknown) (unknown) Flu B (units (unkn own) NEGATIVE unknown) (unknown) (no date) (unknown) (unknown) Negative (units (unkn own) unknown) (unknown) (no date) (unknown) (unknown) Negative (units (unkn own) unknown) Result panel 87 (unknown) (no date) (unknown) (unknown) > 60 ml/min (unkn own) (unknown) (no date) (unknown) (unknown) > 60 ml/min (unkn own) (unknown) (no date) (unknown) (unknown) 0.54 mg/dl (unkn own) (unknown) (no date) (unknown) (unknown) 133 mmol/l (unkn own) (unknown) (no date) (unknown) (unknown) 18 mg/dl (unkn own) (unknown) (no date) (unknown) (unknown) 276 mg/dl (unkn own) (unknown) (no date) (unknown) (unknown) 276 mg/dl (unkn own) (unknown) (no date) (unknown) (unknown) 28 mmol/l (unkn own) (unknown) (no date) (unknown) (unknown) 3.0 mmol/l (unkn own) (unknown) (no date) (unknown) (unknown) 33.3 (units unknown) (unknown) (unknown) (no date) (unknown) (unknown) 7.6 mg/dl (unkn own) (unknown) (no date) (unknown) (unknown) 95 mmol/l (unkn own) Result panel 88 (unknown) (no (unknown) (unknown) (no value) (units (unk nown) date) unknown) (unknown) (no (unknown) (unknown) <Electronically (units (unknown) date) signed by Rigo unknown) MD Aura> (unknown) (no (unknown) (unknown) (Mag-Al Plus) (units ( unknown) date) unknown) (unknown) (no (unknown) (unknown) . (units (unkno wn) date) unknown) (unknown) (no (unknown) (unknown) 05/12/22 05/12/22 (units (unknown) date) 05/12/22 Range/Units unknown) (unknown) (no (unknown) (unknown) 05/12/22 05/12/22 (units (unknown) date) Range/Units unknown) (unknown) (no (unknown) (unknown) 05/12/22 10:33 (units (unknown) date) unknown) (unknown) (no (unknown) (unknown) 05/12/22 15:00 (units (unknown) date) unknown) (unknown) (no (unknown) (unknown) 05/12/22 (units (unkno wn) date) unknown) (unknown) (no (unknown) (unknown) 05/14/225 (units ( unknown) date) unknown) (unknown) (no (unknown) (unknown) [id number] (units (unkno wn) date) unknown) (unknown) (no (unknown) (unknown) 05:57 (units (unkno wn) date) unknown) (unknown) (no (unknown) (unknown) 1 tab PO Q4-6H PRN (units (unknown) date) (Reason: pain) Qty: unknown) 10 0RF (unknown) (no (unknown) (unknown) 1,000 mg PO BID (units (unknown) date) unknown) (unknown) (no (unknown) (unknown) 10:33 10:33 10:33 (units (unknown) date) unknown) (unknown) (no (unknown) (unknown) 11:00 15:00 (units (un known) date) unknown) (unknown) (no (unknown) (unknown) 15 unit SUBCUT (units (unknown) date) BEDTIME Qty: 3 0RF unknown) (unknown) (no (unknown) (unknown) 200 mg-200 mg-20 (units (unknown) date) mg/5 mL oral susp unknown) (unknown) (no (unknown) (unknown) 24-48 hours. (units (u nknown) date) Patient reports unknown) multiple prior similar presentation for similar (unknown) (no (unknown) (unknown) 30 ml PO Q6HR PRN (units (unknown) date) (Reason: Dyspepsia) unknown) Qty: 500 0RF (unknown) (no (unknown) (unknown) 4 mg PO TID-QID PRN (unit s (unknown) date) (Reason: nausea and unknown) vomiting) Qty: 10 0RF (unknown) (no (unknown) (unknown) 40 mg PO BID Qty: (units (unknown) date) 60 0RF unknown) (unknown) (no (unknown) (unknown) 41-year-old female (units (unknown) date) presenting with unknown) nausea, vomiting, and diarrhea. Patient (unknown) (no (unknown) (unknown) 650 mg PO Q4HR PRN (units (unknown) date) (Reason: As Needed unknown) For Fever/Mild Pain) Qty: 20 0RF (unknown) (no (unknown) (unknown) ABD: Non-distended, (unit s (unknown) date) tender over the left unknown) lower quadrant (unknown) (no (unknown) (unknown) ALT (<35) IU/L (units (unknown) date) unknown) (unknown) (no (unknown) (unknown) ALT 31 (<35) IU/L (units (unknown) date) unknown) (unknown) (no (unknown) (unknown) AST (14-36) IU/L (units (unknown) date) unknown) (unknown) (no (unknown) (unknown) AST 34 (14-36) IU/L (unit s (unknown) date) unknown) (unknown) (no (unknown) (unknown) Acetaminophen (units ( unknown) date) (Acetaminophen 325 unknown) Mg Tablet) 650 mg PO NOW ONE (unknown) (no (unknown) (unknown) Activity (units (unkno wn) date) Restrictions/Additio unknown) nal Instructions: (unknown) (no (unknown) (unknown) Admin: 05/12/22 (units (unknown) date) 10:50 Dose: 1,000 unknown) mls/hr (unknown) (no (unknown) (unknown) Admin: 05/12/22 (units (unknown) date) 11:25 Dose: 200 unknown) mls/hr (unknown) (no (unknown) (unknown) Admin: 05/12/22 (units (unknown) date) 14:19 Dose: 1,000 unknown) mls/hr (unknown) (no (unknown) (unknown) Age/Sex: 41 / F (units (unknown) date) unknown) (unknown) (no (unknown) (unknown) Albumin (3.5-5.0) (units (unknown) date) g/dL unknown) (unknown) (no (unknown) (unknown) Albumin 5.1 H (units ( unknown) date) (3.5-5.0) g/dL unknown) (unknown) (no (unknown) (unknown) Albumin/Globulin (units (unknown) date) Ratio (1.0-2.8) unknown) (unknown) (no (unknown) (unknown) Albumin/Globulin (units (unknown) date) Ratio 1.2 (1.0-2.8) unknown) (unknown) (no (unknown) (unknown) Alkaline (units (unkno wn) date) Phosphatase (38-126) unknown) U/L (unknown) (no (unknown) (unknown) Alkaline (units (unkno wn) date) Phosphatase 136 H unknown) (38-126) U/L (unknown) (no (unknown) (unknown) Allergies (units (unkn own) date) unknown) (unknown) (no (unknown) (unknown) Allergy/AdvReac (units (unknown) date) Type Severity unknown) Reaction Status Date / Time (unknown) (no (unknown) (unknown) BUN 18 H (7-17) (units (unknown) date) mg/dL unknown) (unknown) (no (unknown) (unknown) BUN 24 H (7-17) (units (unknown) date) mg/dL unknown) (unknown) (no (unknown) (unknown) BUN/Creatinine (units (unknown) date) Ratio 33.3 H (6-22) unknown) (unknown) (no (unknown) (unknown) BUN/Creatinine (units (unknown) date) Ratio 38.1 H (6-22) unknown) (unknown) (no (unknown) (unknown) Baso # (Auto) (units ( unknown) date) (0-100) /uL unknown) (unknown) (no (unknown) (unknown) Baso # (Auto) 100 (units (unknown) date) (0-100) /uL unknown) (unknown) (no (unknown) (unknown) Baso % (Auto) (0-2) (unit s (unknown) date) % unknown) (unknown) (no (unknown) (unknown) Baso % (Auto) 0.6 (units (unknown) date) (0-2) % unknown) (unknown) (no (unknown) (unknown) Bedside Urine (units ( unknown) date) Bilirubin - Negative unknown) (unknown) (no (unknown) (unknown) Bedside Urine (units ( unknown) date) Glucose 1000 mg/dl unknown) (unknown) (no (unknown) (unknown) Bedside Urine (units ( unknown) date) Ketone +++ 80 unknown) (unknown) (no (unknown) (unknown) Bedside Urine (units ( unknown) date) Leukocytes - unknown) Negative (unknown) (no (unknown) (unknown) Bedside Urine (units ( unknown) date) Nitrite - Negative unknown) (unknown) (no (unknown) (unknown) Bedside Urine (units ( unknown) date) Occult Blood unknown) (unknown) (no (unknown) (unknown) Bedside Urine (units ( unknown) date) Protein +/- 15 unknown) (unknown) (no (unknown) (unknown) Bedside Urine (units ( unknown) date) Urobilinogen - unknown) Negative (unknown) (no (unknown) (unknown) Bedside Urine pH (units (unknown) date) 6.0 unknown) (unknown) (no (unknown) (unknown) Blood Pressure (units (unknown) date) 190/90 H 05/12/22 unknown) 05:57 (unknown) (no (unknown) (unknown) Blood Pressure (units (unknown) date) 190/90 H unknown) (unknown) (no (unknown) (unknown) Broad screening (units (unknown) date) labs were obtained unknown) and notable for leukocytosis with (unknown) (no (unknown) (unknown) CT imaging (units (unk nown) date) completed of the unknown) abdomen and pelvis without clear evidence of (unknown) (no (unknown) (unknown) CV: Well perfused (units (unknown) date) peripherally, no unknown) cyanosis present (unknown) (no (unknown) (unknown) Calcium 7.6 L (units ( unknown) date) (8.4-10.2) mg/dL unknown) (unknown) (no (unknown) (unknown) Calcium 9.0 (units (un known) date) (8.4-10.2) mg/dL unknown) (unknown) (no (unknown) (unknown) Carbon Dioxide 28 (units (unknown) date) (22-32) mmol/L unknown) (unknown) (no (unknown) (unknown) Chief complaint: (units (unknown) date) Nausea/Vomiting/Diar unknown) hernandez (unknown) (no (unknown) (unknown) Chloride 85 L (units ( unknown) date) (98-107) mmol/L unknown) (unknown) (no (unknown) (unknown) Chloride 95 L (units ( unknown) date) (98-107) mmol/L unknown) (unknown) (no (unknown) (unknown) Ciprofloxacin (units ( unknown) date) (Cipro) 400 mg in unknown) 200 mls @ 200 mls/hr IV NOW ONE (unknown) (no (unknown) (unknown) Clinical (units (unkno wn) date) Impression: unknown) (unknown) (no (unknown) (unknown) Congestive heart (units (unknown) date) failure unknown) (unknown) (no (unknown) (unknown) Constitutional, (units (unknown) date) Eyes, ENT, unknown) Pulmonary, Cardiovascular, Gastrointestinal, Renal, (unknown) (no (unknown) (unknown) Constitutional: (units (unknown) date) interactive unknown) (unknown) (no (unknown) (unknown) Course (units (unkno wn) date) unknown) (unknown) (no (unknown) (unknown) Creatinine 0.54 (units (unknown) date) (0.52-1.04) mg/dL unknown) (unknown) (no (unknown) (unknown) Creatinine 0.63 (units (unknown) date) (0.52-1.04) mg/dL unknown) (unknown) (no (unknown) (unknown) : 1980 (units (unknown) date) Acct:[id number] unknown) (unknown) (no (unknown) (unknown) Date of Service: (units (unknown) date) 05/12/22 unknown) (unknown) (no (unknown) (unknown) Departure (units (unkn own) date) unknown) (unknown) (no (unknown) (unknown) Diabetes (units (unkno wn) date) unknown) (unknown) (no (unknown) (unknown) Discharge Plan (units (unknown) date) unknown) (unknown) (no (unknown) (unknown) Discontinued (units (u nknown) date) Medications unknown) (unknown) (no (unknown) (unknown) Documented By: KM (units (unknown) date) unknown) (unknown) (no (unknown) (unknown) Documented By: NR (units (unknown) date) unknown) (unknown) (no (unknown) (unknown) ER Physician: (units ( unknown) date) Rigo Chavarria MD unknown) (unknown) (no (unknown) (unknown) EYES: No scleral (units (unknown) date) icterus unknown) (unknown) (no (unknown) (unknown) Emergency Report (units (unknown) date) unknown) (unknown) (no (unknown) (unknown) Endocrine, (units (unk nown) date) Genitourinary, unknown) Musculoskeletal, Neurologic, Skin, and Psychiatric s (unknown) (no (unknown) (unknown) Eos # (Auto) (units (u nknown) date) (0-450) /uL unknown) (unknown) (no (unknown) (unknown) Eos # (Auto) 0 (units (unknown) date) (0-450) /uL unknown) (unknown) (no (unknown) (unknown) Eos % (Auto) (2-4) (units (unknown) date) % unknown) (unknown) (no (unknown) (unknown) Eos % (Auto) 0.1 L (units (unknown) date) (2-4) % unknown) (unknown) (no (unknown) (unknown) Esterase (units (unkno wn) date) unknown) (unknown) (no (unknown) (unknown) Estimated GFR > 60 (units (unknown) date) (>60) mL/min unknown) (unknown) (no (unknown) (unknown) Exam Narrative: (units (unknown) date) unknown) (unknown) (no (unknown) (unknown) Exam (units (unkno wn) date) unknown) (unknown) (no (unknown) (unknown) Family History (units (unknown) date) (Reviewed 05/12/22 @ unknown) 10:51 by Rigo Chavarria MD) (unknown) (no (unknown) (unknown) Father (units (unknown) date) Parkinsons disease unknown) (unknown) (no (unknown) (unknown) Fever/Mild Pain #20 (unit s (unknown) date) tabs unknown) (unknown) (no (unknown) (unknown) General (units (unkno wn) date) unknown) (unknown) (no (unknown) (unknown) Globulin (1.7-4.1) (units (unknown) date) g/dL unknown) (unknown) (no (unknown) (unknown) Globulin 4.2 H (units (unknown) date) (1.7-4.1) g/dL unknown) (unknown) (no (unknown) (unknown) Glucose 276 H D (units (unknown) date) (70-100) mg/dL unknown) (unknown) (no (unknown) (unknown) Glucose 395 H (units ( unknown) date) (70-100) mg/dL unknown) (unknown) (no (unknown) (unknown) HENT: Moist mucous (units (unknown) date) membranes unknown) (unknown) (no (unknown) (unknown) HPI - (units (unkno wn) date) Nausea/Vomiting/Diar unknown) hernandez (unknown) (no (unknown) (unknown) HPI Narrative: (units (unknown) date) unknown) (unknown) (no (unknown) (unknown) HSV (herpes simplex (unit s (unknown) date) virus) anogenital unknown) infection (unknown) (no (unknown) (unknown) Hct (36-46) % (units ( unknown) date) unknown) (unknown) (no (unknown) (unknown) Hct 50.2 H (36-46) (units (unknown) date) % unknown) (unknown) (no (unknown) (unknown) Hgb (12.0-16.0) (units (unknown) date) g/dL unknown) (unknown) (no (unknown) (unknown) Hgb 16.9 H (units (unk nown) date) (12.0-16.0) g/dL unknown) (unknown) (no (unknown) (unknown) History of Present (units (unknown) date) Illness unknown) (unknown) (no (unknown) (unknown) History of wisdom (units (unknown) date) tooth extraction unknown) (unknown) (no (unknown) (unknown) Home Medications (units (unknown) date) unknown) (unknown) (no (unknown) (unknown) Influenza A (units (un known) date) (RT-PCR) (NEGATIVE) unknown) (unknown) (no (unknown) (unknown) Influenza A (units (un known) date) (RT-PCR) Flu a unknown) negative (NEGATIVE) (unknown) (no (unknown) (unknown) Influenza B (units (un known) date) (RT-PCR) (NEGATIVE) unknown) (unknown) (no (unknown) (unknown) Influenza B (units (un known) date) (RT-PCR) Flu b unknown) negative (NEGATIVE) (unknown) (no (unknown) (unknown) Initial Vital Signs (unit s (unknown) date) unknown) (unknown) (no (unknown) (unknown) Initial Vital (units ( unknown) date) Signs: unknown) (unknown) (no (unknown) (unknown) Initial concern for (unit s (unknown) date) acute unknown) intra-abdominal pathology including pancreatitis, (unknown) (no (unknown) (unknown) Instructions: (units ( unknown) date) Nausea and unknown) Vomiting-Adult (unknown) (no (unknown) (unknown) Intractable nausea (units (unknown) date) and vomiting, unknown) Diabetes (unknown) (no (unknown) (unknown) [facility] (units (unknown) date) [address] unknown) [place] [address] (unknown) (no (unknown) (unknown) Lab Data (units (unkno wn) date) unknown) (unknown) (no (unknown) (unknown) Lab Results (units (un known) date) unknown) (unknown) (no (unknown) (unknown) Labs: (units (unkno wn) date) unknown) (unknown) (no (unknown) (unknown) Lactate (0.7-2.1) (units (unknown) date) mmol/L unknown) (unknown) (no (unknown) (unknown) Lactate 1.5 (units (un known) date) (0.7-2.1) mmol/L unknown) (unknown) (no (unknown) (unknown) Lankvng Hydear (units (unknown) date) U-100 Insulin 100 unknown) unit/mL (3 mL) Insulin Pen (unknown) (no (unknown) (unknown) Last Admin: (units (un known) date) 05/12/22 10:50 Dose: unknown) 10 mg (unknown) (no (unknown) (unknown) Last Admin: (units (un known) date) 05/12/22 12:30 Dose: unknown) 650 mg (unknown) (no (unknown) (unknown) Last Admin: (units (un known) date) 05/12/22 12:36 Dose: unknown) Not Given (unknown) (no (unknown) (unknown) Last Admin: (units (un known) date) 05/12/22 14:19 Dose: unknown) 10 mg (unknown) (no (unknown) (unknown) Last Infusion: (units (unknown) date) 05/12/22 11:30 Dose: unknown) 0 mls/hr (unknown) (no (unknown) (unknown) Last Infusion: (units (unknown) date) 05/12/22 12:37 Dose: unknown) 0 mls/hr (unknown) (no (unknown) (unknown) Last Infusion: (units (unknown) date) 05/12/22 15:32 Dose: unknown) 0 mls/hr (unknown) (no (unknown) (unknown) Lipase (23-300) U/L (unit s (unknown) date) unknown) (unknown) (no (unknown) (unknown) Lipase 104 (23-300) (unit s (unknown) date) U/L unknown) (unknown) (no (unknown) (unknown) Lymph # (Auto) (units (unknown) date) (9219-4937) /uL unknown) (unknown) (no (unknown) (unknown) Lymph # (Auto) 4800 (unit s (unknown) date) H (2821-4060) /uL unknown) (unknown) (no (unknown) (unknown) Lymph % (Auto) (units (unknown) date) (25-40) % unknown) (unknown) (no (unknown) (unknown) Lymph % (Auto) 21.1 (unit s (unknown) date) L (25-40) % unknown) (unknown) (no (unknown) (unknown) MCH (26-34) PG (units (unknown) date) unknown) (unknown) (no (unknown) (unknown) MCH 29.3 (26-34) PG (unit s (unknown) date) unknown) (unknown) (no (unknown) (unknown) MCHC (30-36) % (units (unknown) date) unknown) (unknown) (no (unknown) (unknown) MCHC 33.7 (30-36) % (unit s (unknown) date) unknown) (unknown) (no (unknown) (unknown) MCV (80-100) fL (units (unknown) date) unknown) (unknown) (no (unknown) (unknown) MCV 86.9 (80-100) (units (unknown) date) fL unknown) (unknown) (no (unknown) (unknown) MDM - (units (unkno wn) date) Nausea/Vomiting/Diar unknown) hernandez (unknown) (no (unknown) (unknown) MDM Narrative (units ( unknown) date) unknown) (unknown) (no (unknown) (unknown) MS: No gross (units (u nknown) date) deformities, no unknown) asymmetric edema noted (unknown) (no (unknown) (unknown) Medical History (units (unknown) date) (Reviewed 05/12/22 @ unknown) 10:51 by Rigo Chavarria MD) (unknown) (no (unknown) (unknown) Medical decision (units (unknown) date) making narrative: unknown) (unknown) (no (unknown) (unknown) Medication (units (unk nown) date) Instructions unknown) Recorded Confirmed (unknown) (no (unknown) (unknown) Medication (units (unk nown) date) Instructions unknown) Recorded (unknown) (no (unknown) (unknown) Metoclopramide HCl (units (unknown) date) (Metoclopramide 10 unknown) Mg/2 Ml Inj) 10 mg IV NOW ONE (unknown) (no (unknown) (unknown) Metronidazole (units ( unknown) date) (Flagyl) 500 mg in unknown) 100 mls @ 100 mls/hr IV NOW ONE (unknown) (no (unknown) (unknown) Mode of arrival: (units (unknown) date) Ambulatory unknown) (unknown) (no (unknown) (unknown) Wise # (Auto) (units ( unknown) date) (0-900) /uL unknown) (unknown) (no (unknown) (unknown) Wise # (Auto) 1100 (units (unknown) date) H (0-900) /uL unknown) (unknown) (no (unknown) (unknown) Wise % (Auto) (units ( unknown) date) (3-14) % unknown) (unknown) (no (unknown) (unknown) Wise % (Auto) 4.7 (units (unknown) date) (3-14) % unknown) (unknown) (no (unknown) (unknown) Mother (units (unknown) date) Diabetes mellitus unknown) (unknown) (no (unknown) (unknown) NECK: no masses (units (unknown) date) unknown) (unknown) (no (unknown) (unknown) NEURO: Follows (units (unknown) date) simple commands, unknown) moves extremities, interactive with exam (unknown) (no (unknown) (unknown) Narrative (units (unkn own) date) unknown) (unknown) (no (unknown) (unknown) Narrative: (units (unk nown) date) unknown) (unknown) (no (unknown) (unknown) Neut # (Auto) (units ( unknown) date) (8639-0999) /uL unknown) (unknown) (no (unknown) (unknown) Neut # (Auto) 42874 (unit s (unknown) date) H (6232-5040) /uL unknown) (unknown) (no (unknown) (unknown) Neut % (Auto) (units ( unknown) date) (50-75) % unknown) (unknown) (no (unknown) (unknown) Neut % (Auto) 73.5 (units (unknown) date) (50-75) % unknown) (unknown) (no (unknown) (unknown) No Action (units (unkn own) date) unknown) (unknown) (no (unknown) (unknown) On repeat (units (unkn own) date) evaluation, patient unknown) with significant improvement in symptoms, able (unknown) (no (unknown) (unknown) Ordered: (units (unkno wn) date) unknown) (unknown) (no (unknown) (unknown) Orders (units (unkno wn) date) unknown) (unknown) (no (unknown) (unknown) Oxygen Delivery (units (unknown) date) Method 05/12/22 unknown) 05:57 (unknown) (no (unknown) (unknown) Oxygen Delivery (units (unknown) date) Method Room Air unknown) (unknown) (no (unknown) (unknown) PSYCH: Appropriate (units (unknown) date) affect unknown) (unknown) (no (unknown) (unknown) PULM: Unlabored (units (unknown) date) respirations, unknown) symmetric chest rise (unknown) (no (unknown) (unknown) Patient (units (unkno wn) date) Disposition: Home unknown) (unknown) (no (unknown) (unknown) Patient History (units (unknown) date) unknown) (unknown) (no (unknown) (unknown) Patient is treated (units (unknown) date) symptomatically with unknown) IV fluids and antiemetics. (unknown) (no (unknown) (unknown) Patient: (units (unkno wn) date) Katherine Silva MR#: unknown) M00 (unknown) (no (unknown) (unknown) Please follow up in (unit s (unknown) date) the outpatient unknown) setting with your primary care provider. (unknown) (no (unknown) (unknown) Please take the (units (unknown) date) anti nausea unknown) medications as discussed. Please return to the (unknown) (no (unknown) (unknown) Plt Count (150-400) (unit s (unknown) date) X103/uL unknown) (unknown) (no (unknown) (unknown) Plt Count 432 H (units (unknown) date) (150-400) X103/uL unknown) (unknown) (no (unknown) (unknown) Potassium 3.0 L (units (unknown) date) (3.4-5.1) mmol/L unknown) (unknown) (no (unknown) (unknown) Potassium 3.6 (units ( unknown) date) (3.4-5.1) mmol/L unknown) (unknown) (no (unknown) (unknown) Prescriptions: (units (unknown) date) unknown) (unknown) (no (unknown) (unknown) Previous Rx's (units ( unknown) date) unknown) (unknown) (no (unknown) (unknown) Prochlorperazine (units (unknown) date) (Prochlorperazine 10 unknown) Mg/2 Ml Vial) 10 mg IV NOW ONE (unknown) (no (unknown) (unknown) Pulse Oximetry 94 (units (unknown) date) 05/12/22 05:57 unknown) (unknown) (no (unknown) (unknown) Pulse Oximetry 94 (units (unknown) date) unknown) (unknown) (no (unknown) (unknown) Pulse Rate 115 H (units (unknown) date) 05/12/22 05:57 unknown) (unknown) (no (unknown) (unknown) Pulse Rate 115 H (units (unknown) date) unknown) (unknown) (no (unknown) (unknown) RBC (4.0-5.2) (units ( unknown) date) X106/uL unknown) (unknown) (no (unknown) (unknown) RBC 5.78 H (units (unk nown) date) (4.0-5.2) X106/uL unknown) (unknown) (no (unknown) (unknown) RDW (11.6-14.8) % (units (unknown) date) unknown) (unknown) (no (unknown) (unknown) RDW 13.3 (units (unkno wn) date) (11.6-14.8) % unknown) (unknown) (no (unknown) (unknown) RSV (PCR) (units (unkn own) date) (Negative) unknown) (unknown) (no (unknown) (unknown) RSV (PCR) Negative (units (unknown) date) (Negative) unknown) (unknown) (no (unknown) (unknown) Related Data (units (u nknown) date) unknown) (unknown) (no (unknown) (unknown) Respiratory Rate 20 (unit s (unknown) date) 05/12/22 05:57 unknown) (unknown) (no (unknown) (unknown) Respiratory Rate 20 (unit s (unknown) date) unknown) (unknown) (no (unknown) (unknown) Result diagrams: (units (unknown) date) unknown) (unknown) (no (unknown) (unknown) Review of Systems (units (unknown) date) unknown) (unknown) (no (unknown) (unknown) SARS-CoV-2 (PCR) (units (unknown) date) (Negative) unknown) (unknown) (no (unknown) (unknown) SARS-CoV-2 (PCR) (units (unknown) date) Negative (Negative) unknown) (unknown) (no (unknown) (unknown) SKIN: Warm and dry. (unit s (unknown) date) unknown) (unknown) (no (unknown) (unknown) Signed By: (units (unk nown) date) unknown) (unknown) (no (unknown) (unknown) Smoking Status: (units (unknown) date) Current every day unknown) smoker (unknown) (no (unknown) (unknown) Social History (units (unknown) date) (Reviewed 05/12/22 @ unknown) 10:51 by Rigo Chavarria MD) (unknown) (no (unknown) (unknown) Sodium 130 L (units (u nknown) date) (137-145) mmol/L unknown) (unknown) (no (unknown) (unknown) Sodium 133 L (units (u nknown) date) (137-145) mmol/L unknown) (unknown) (no (unknown) (unknown) Sodium Chloride (units (unknown) date) (Normal Saline 0.9%) unknown) 1,000 mls @ 1,000 mls/hr IV BOLUS ONE (unknown) (no (unknown) (unknown) Solostar U-100 (units (unknown) date) Insulin) unknown) (unknown) (no (unknown) (unknown) Source: patient (units (unknown) date) unknown) (unknown) (no (unknown) (unknown) Stand Alone Forms: (units (unknown) date) Patient Portal/API unknown) (unknown) (no (unknown) (unknown) Stated complaint: (units (unknown) date) n/v possible ulcers unknown) (unknown) (no (unknown) (unknown) Stop: 05/12/22 (units (unknown) date) 10:42 unknown) (unknown) (no (unknown) (unknown) Stop: 05/12/22 (units (unknown) date) 11:40 unknown) (unknown) (no (unknown) (unknown) Stop: 05/12/22 (units (unknown) date) 11:51 unknown) (unknown) (no (unknown) (unknown) Stop: 05/12/22 (units (unknown) date) 12:07 unknown) (unknown) (no (unknown) (unknown) Stop: 05/12/22 (units (unknown) date) 14:06 unknown) (unknown) (no (unknown) (unknown) Stop: 05/12/22 (units (unknown) date) 15:03 unknown) (unknown) (no (unknown) (unknown) Substance Use Type: (unit s (unknown) date) marijuana unknown) (unknown) (no (unknown) (unknown) Surgical History (units (unknown) date) (Reviewed 05/12/22 @ unknown) 10:51 by Rigo Chavarria MD) (unknown) (no (unknown) (unknown) Temperature 99 F (units (unknown) date) 05/12/22 05:57 unknown) (unknown) (no (unknown) (unknown) Temperature 99 F (units (unknown) date) unknown) (unknown) (no (unknown) (unknown) Time Seen by (units (u nknown) date) Provider: 05/12/22 unknown) 10:34 (unknown) (no (unknown) (unknown) Total Bilirubin (units (unknown) date) (0.2-1.3) mg/dL unknown) (unknown) (no (unknown) (unknown) Total Bilirubin 1.3 (unit s (unknown) date) (0.2-1.3) mg/dL unknown) (unknown) (no (unknown) (unknown) Total Protein (units ( unknown) date) (6.3-8.2) g/dL unknown) (unknown) (no (unknown) (unknown) Total Protein 9.3 H (unit s (unknown) date) (6.3-8.2) g/dL unknown) (unknown) (no (unknown) (unknown) Urine Dip (units (unkn own) date) unknown) (unknown) (no (unknown) (unknown) Urine Specific (units (unknown) date) Pooler 1.015 unknown) (unknown) (no (unknown) (unknown) Vital Signs - 8 hr (units (unknown) date) unknown) (unknown) (no (unknown) (unknown) Vital Signs (units (un known) date) unknown) (unknown) (no (unknown) (unknown) Vital signs: (units (u nknown) date) unknown) (unknown) (no (unknown) (unknown) Vitals reviewed. (units (unknown) date) Nursing note unknown) reviewed (unknown) (no (unknown) (unknown) WBC (4.5-11.0) (units (unknown) date) X103/uL unknown) (unknown) (no (unknown) (unknown) WBC 22.9 H (units (unk nown) date) (4.5-11.0) X103/uL unknown) (unknown) (no (unknown) (unknown) [Embedded Image Not (unit s (unknown) date) Available] unknown) (unknown) (no (unknown) (unknown) acetaminophen 325 (units (unknown) date) mg Tablet unknown) (unknown) (no (unknown) (unknown) acetaminophen 325 (units (unknown) date) mg tablet 650 mg PO unknown) Q4HR PRN As Needed For 12/01/20 (unknown) (no (unknown) (unknown) alcohol intake (units (unknown) date) frequency: unknown) holidays/special occasions only (unknown) (no (unknown) (unknown) alcohol intake: (units (unknown) date) current unknown) (unknown) (no (unknown) (unknown) alum-mag (units (unkno wn) date) hydroxide-simeth unknown) [Mag-Al Plus] 200-200-20 mg/5 mL suspension (unknown) (no (unknown) (unknown) aluminum-mag (units (u nknown) date) hydroxide-simethicon unknown) e 30 ml PO Q6HR PRN Dyspepsia #500 mL 12/01/20 (unknown) (no (unknown) (unknown) aspirin AdvReac (units (unknown) date) Verified 02/06/21 unknown) 19:01 (unknown) (no (unknown) (unknown) biliary pathology, (units (unknown) date) obstruction, unknown) gastroenteritis, mass lesion, viral syndrome, (unknown) (no (unknown) (unknown) diarrhea, cramping (units (unknown) date) type abdominal pain, unknown) this has localized somewhat to the left (unknown) (no (unknown) (unknown) diverticulitis, (units (unknown) date) patient does have unknown) diverticulosis and chronic findings as (unknown) (no (unknown) (unknown) diverticulitis. (units (unknown) date) Patient reports unknown) developing blood-tinged stools over the last (unknown) (no (unknown) (unknown) documented. (units (un known) date) unknown) (unknown) (no (unknown) (unknown) emergency (units (unkn own) date) department if you unknown) develop recurrent nausea and vomiting. (unknown) (no (unknown) (unknown) focal bacterial (units (unknown) date) infection, occult unknown) penile specific pelvic pathology. (unknown) (no (unknown) (unknown) hemoconcentration as (unit s (unknown) date) above, CMP notable unknown) for hyperglycemia without clear evidence (unknown) (no (unknown) (unknown) household members: (units (unknown) date) significant other unknown) and children (unknown) (no (unknown) (unknown) hydrocodone 5 (units ( unknown) date) mg-acetaminophen 325 unknown) 1 tab PO Q4-6H PRN pain #10 tabs 02/07/21 (unknown) (no (unknown) (unknown) hydrocodone-acetami (unit s (unknown) date) nophen 5-325 mg unknown) tablet (unknown) (no (unknown) (unknown) hypertension. (units ( unknown) date) Physical exam unknown) notable alert and interactive 41-year-old female in (unknown) (no (unknown) (unknown) insulin glargine (units (unknown) date) 100 unit/mL (3 15 unknown) unit (0.15 mL) SUBCUT BEDTIME 12/01/20 (unknown) (no (unknown) (unknown) lower quadrant of (units (unknown) date) the abdomen, patient unknown) does have history of prior (unknown) (no (unknown) (unknown) mL) subcutaneous (units (unknown) date) pen (Lantus #3 mL unknown) (unknown) (no (unknown) (unknown) metformin 1,000 mg (units (unknown) date) tablet extended unknown) release 24hr (unknown) (no (unknown) (unknown) metformin 1,000 mg (units (unknown) date) tablet,extended unknown) 1,000 mg PO BID 11/29/20 11/29/20 (unknown) (no (unknown) (unknown) mg tablet (units (unkn own) date) unknown) (unknown) (no (unknown) (unknown) multiple similar (units (unknown) date) prior presentations. unknown) Vital signs on presentation notable for (unknown) (no (unknown) (unknown) no distress, (units (u nknown) date) reassuring unknown) cardiopulmonary exam, benign abdomen. (unknown) (no (unknown) (unknown) of diabetic (units (un known) date) ketoacidosis. unknown) (unknown) (no (unknown) (unknown) ondansetron 4 mg (units (unknown) date) disintegrating 4 mg unknown) PO TID-QID PRN nausea and 02/07/21 (unknown) (no (unknown) (unknown) ondansetron 4 mg (units (unknown) date) tablet,disintegratin unknown) g (unknown) (no (unknown) (unknown) outpatient follow (units (unknown) date) up primary care unknown) provider (unknown) (no (unknown) (unknown) outpatient follow (units (unknown) date) up. Patient unknown) instructed on return precautions and close (unknown) (no (unknown) (unknown) pantoprazole 40 mg (units (unknown) date) tablet,delayed 40 mg unknown) PO BID #60 tabs 12/01/20 (unknown) (no (unknown) (unknown) pantoprazole (units (u nknown) date) [Protonix] 40 mg unknown) tablet,delayed release (DR/EC) (unknown) (no (unknown) (unknown) release (Protonix) (units (unknown) date) unknown) (unknown) (no (unknown) (unknown) release 24hr (units (u nknown) date) unknown) (unknown) (no (unknown) (unknown) reports symptoms (units (unknown) date) have been ongoing unknown) last several days, patient history of (unknown) (no (unknown) (unknown) reports symptoms (units (unknown) date) since Wednesday, unknown) developed initially watery stools and watery (unknown) (no (unknown) (unknown) symptoms. No (units (u nknown) date) measured fevers. unknown) (unknown) (no (unknown) (unknown) tablet vomiting #10 (unit s (unknown) date) tabs unknown) (unknown) (no (unknown) (unknown) tobacco type: (units ( unknown) date) cigarettes unknown) (unknown) (no (unknown) (unknown) tolerate p.o. (units ( unknown) date) intake without unknown) difficulty, agreeable with for discharge and close (unknown) (no (unknown) (unknown) ystems were (units (un known) date) reviewed and unknown) negative unless indicated in the HPI above. Social History date description facility 2022-05-12 00:00 Smokes tobacco daily ([facility] Vital Signs date measurement value units 2022-05-12 00:00 BP_diastolic 83 mmHg 2022-05-12 00:00 BP_systolic 171 mmHg 2022-05-12 00:00 heart_rate 95 /min 2022-05-12 00:00 o2_saturation 96 % 2022-05-12 00:00 respiration_rate 27 /min 2022-05-12 00:00 temperature_metric 37.22 C 2022-05-12 00:00 temperature_standard 99 F 2022-05-12 00:00 weight_metric 72.57 kg 2022-05-12 00:00 weight_standard 159.99 lb
[2022-07-14 08:59] LABS: BASOPHILS # (AUTO) 0.1 10^3/uL (0.0-0.1); BASOPHILS % (AUTO) 0.9 %; EOSINOPHILS # (AUTO) 1.6 10^3/uL (0.0-0.7); HCT - HEMATOCRIT 47.9 % (37.0-47.0); HGB - HEMOGLOBIN 15.4 g/dL (12.0-16.0); LYMPHOCYTES # (AUTO) 2.9 10^3/uL (1.5-3.5); LYMPHOCYTES % (AUTO) 24.3 %; MEAN CORPUSCULAR HEMOGLOBIN 28.9 pg (27.0-31.0); MEAN CORPUSCULAR HGB CONC 32.2 g/dL (32.0-36.0); MEAN PLATELET VOLUME 10.1 fL (7.9-10.8); MONOCYTES # (AUTO) 0.7 10^3/uL (0.0-1.0); NEUTROPHILS # (AUTO) 6.6 10^3/uL (1.5-6.6); NEUTROPHILS % (AUTO) 55.5 %; PLT - PLATELET COUNT 359 10^3/uL (130-450); RED BLOOD COUNT 5.32 10^6/uL (4.20-5.40); RED CELL DISTRIBUTION WIDTH 13.2 % (12.0-15.0); WHITE BLOOD COUNT 11.9 x10^3/uL (4.8-10.8)
[2022-07-14 09:06] LABS: RBC MORPHOLOGY (MULTIPLE) 1+ ANISOCYTOSIS (NORMAL); SLIDE REVIEW? Indicated
[2022-07-14 09:09] LABS: PT - PROTHROMBIN TIME 11.2 secs (9.9-12.6)
[2022-07-14 09:14] LABS: ALBUMIN 4.1 g/dL (3.2-5.5); ALBUMIN/GLOBULIN RATIO 1.2 (1.0-2.2); BILIRUBIN,TOTAL 0.5 mg/dL (0.2-1.0); CALCIUM 8.9 mg/dL (8.5-10.3); CREATININE 0.7 mg/dL (0.4-1.0); POTASSIUM 4.3 mmol/L (3.5-5.0); TOTAL PROTEIN 7.5 g/dL (6.7-8.2)
--- NOTE | 2022-07-14 09:18 | ED Physician Documentation ---
History of Present Illness - Stated complaint Stated Complaint: L SIDE PX - Chief complaint Chief Complaint: General - Additonal information Additional information: Patient is 42-year-old female presenting to the emergency department with left- sided chest wall pain. Endorses for slipping and falling and injuring her chest wall last April while taking a bath. Denies any head trauma or loss of consciousness at that time. Reports that she has been takingIbuprofen regularly for pain control however her pain is gotten significantly worse over the course of the last few weeks. She reports that she has been thinking about coming to the emergency department for the last week for an evaluation because of her worsening pain and decided to come today however there was no specific precipitating event that led her to seek emergency care this morning. She reports cough and increased pain with deep inspiration. Denies hemoptysis. Review of Systems Constitutional: denies: Fever Eyes: denies: Loss of vision Ears: denies: Loss of hearing Nose: denies: Rhinorrhea / runny nose Throat: denies: Dental pain / toothache Cardiac: reports: Chest pain / pressure. denies: Palpitations Respiratory: reports: Cough. 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: None : None HEENT: None Psych: Depression, Anxiety, Panic attacks, Post traumatic stress disorder Musculoskeletal: None Derm: None - Past Surgical History Past Surgical History: Yes General: Colonoscopy, EGD /REVENUE ENFORCEMENT AGENT: Dilation and currettage - Present Medications Home Medications: Ambulatory Orders Medication Instructions Recorded Confirmed Insulin Glargine [Lantus Solostar] 24 units SQ DAILY 03/18/21 07/14/22 Pantoprazole [Protonix] 40 mg PO DAILY 03/18/21 07/14/22 Escitalopram Oxalate 5 mg PO DAILY 07/14/22 07/14/22 HYDROcod/ACETAM 5/325 [Coulter 5/325] 1 tab PO Q6HR PRN #15 tablet 07/14/22 Insulin Lispro [Insulin Lispro 5 unit SQ AC 07/14/22 07/14/22 Kwikpen U-100] Nortriptyline HCl [Pamelor] 50 mg PO HS 07/14/22 07/14/22 - Allergies Allergies/Adverse Reactions: Allergies Allergy/AdvReac Type Severity Reaction Status Date / Time No Known Drug Allergies Allergy Verified 07/14/22 08:23 - Social History Does the pt smoke?: Yes Smoking Status: Current every day smoker Does the pt drink ETOH?: No Does the pt have substance abuse?: Yes Substance Use and Type: Marijuana - Immunizations Immunizations are current?: Yes PD ED PE NORMAL - Vitals Vital signs reviewed: Yes (Tachycardic and hypertensive) - General General: Alert and oriented X 3, No acute distress, Well developed/nourished - HEENT HEENT: Atraumatic, PERRL, EOMI, Ears normal, Moist mucous membranes, Pharynx benign, Dentition benign - Neck Neck: Supple, no meningeal sign, No JVD - Cardiac Cardiac: RRR, No murmur, Other (Left-sided chest wall tenderness to palpation) - Respiratory Respiratory: No respiratory distress - Abdomen Abdomen: Normal bowel sounds - Female Female : Deferred - Rectal Rectal: Deferred - Derm Derm: Normal color - Extremities Extremities: No deformity - Neuro Neuro: Alert and oriented X 3, 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 Relevant findings are: Sinus rhythm with rate 91 bpm. Normal axis. Normal SC, QRS, QTc intervals. No ST segment elevations or T wave inversions. - Labs Labs: Laboratory Tests 07/14/22 07/14/22 07/14/22 08:53 08:53 08:53 WBC 11.9 H RBC 5.32 Hgb 15.4 Hct 47.9 H MCV 90.0 MCH 28.9 MCHC 32.2 RDW 13.2 Plt Count 359 MPV 10.1 Neut # (Auto) 6.6 Lymph # (Auto) 2.9 Quay # (Auto) 0.7 Eos # (Auto) 1.6 H Baso # (Auto) 0.1 Absolute Nucleated RBC 0.00 Nucleated RBC % 0.0 Manual Slide Review Indicated RBC Morph Micro Appear 1+ ANISOCYTOSIS PT 11.2 INR 1.0 D-Dimer 215.1 Sodium 134 L Potassium 4.3 Chloride 102 Carbon Dioxide 24 Anion Gap 8.0 BUN 19 Creatinine 0.7 Estimated GFR (MDRD) 91 Glucose 205 H Calcium 8.9 Total Bilirubin 0.5 AST 17 ALT 18 Alkaline Phosphatase 87 Troponin I High Sens Total Protein 7.5 Albumin 4.1 Globulin 3.4 Albumin/Globulin Ratio 1.2 Lipase 41 HCG, Quant 07/14/22 07/14/22 08:53 08:53 WBC RBC Hgb Hct MCV MCH MCHC RDW Plt Count MPV Neut # (Auto) Lymph # (Auto) Quay # (Auto) Eos # (Auto) Baso # (Auto) Absolute Nucleated RBC Nucleated RBC % Manual Slide Review RBC Morph Micro Appear PT INR D-Dimer Sodium Potassium Chloride Carbon Dioxide Anion Gap BUN Creatinine Estimated GFR (MDRD) Glucose Calcium Total Bilirubin AST ALT Alkaline Phosphatase Troponin I High Sens 3.4 Total Protein Albumin Globulin Albumin/Globulin Ratio Lipase HCG, Quant < 0.60 PD Medical Decision Making - ED course Complexity details: reviewed results, re-evaluated patient, d/w patient Drug Therapy Requiring Monitoring for Toxicity: IV fentanyl ED course: Patient 42-year-old female presenting to the emergency department with left- sided chest pain x2-3 months. Initially reported a fall in the bathroom in April 2022. Afebrile, hematin stable on arrival to the emergency department. EKG as outlined above negative for indications of acute cardiac ischemia or dysrhythmia. Comprehensive labs did not demonstrate any indications of infection/inflammation or solid organ injury. CT of the chest however did demonstrate subacute nondisplaced left sixth and seventh rib fractures. Patient was given IV fentanyl and monitor carefully for symptomatic management. Remained hemodynamically stable over her approximate 3-hour stay in the emergency department. At this time I will discharge with medication for symptomatic management. She was counseled on the use of this medication as well as its possible risks. She was encouraged to carefully follow-up with primary care. Otherwise clear return precautions given prior to discharge. Departure - Departure Disposition: 01 Home, Self Care Clinical Impression: Ribs, multiple fractures Qualifiers: Encounter type: initial encounter Fracture type: closed Laterality: left Qualified Code(s): S22.42XA - Multiple fractures of ribs, left side, initial encounter for closed fracture Instructions: ED Fx Rib Prescriptions: HYDROcod/ACETAM 325 [Coulter 5/325] 1 tab PO Q6HR PRN #15 tablet PRN Reason: Pain 5-7
[2022-07-14 09:22] LABS: D-DIMER 215.1 ng/mL (200.0-255.0)
[2022-07-14] MEDS: ONDANSETRON 4 MG/2 ML VIAL IVP STA (09:53)
[2022-07-14] MEDS: fentaNYL 100 MCG/2 ML VIAL IVP PRN (09:53)
[2022-07-14] MEDS ORDERED: iohexoL-300 100 ML VIAL ONE (10:09)
--- NOTE | 2022-07-14 11:14 | CT Report ---
PROCEDURE: CHEST W INDICATIONS: Chest wall trauma, lft sided CONTRAST:100ml Omnipaque 300 TECHNIQUE: After the administration of intravenous contrast, 1 mm axial images were acquired from the pulmonary apices through the posterior costophrenic angles. Axial 5 mm soft tissue kernel reconstructions were performed as well as 8 mm axial MIP and coronal and sagittal 5 mm reformations. For radiation dose reduction, the following was used: automated exposure control, adjustment of mA and/or kV according to patient size. COMPARISON: Chest x-ray one view, 07/17/2021. Chest CT was, 04/09/2020. FINDINGS: Image quality: Excellent. Lungs and pleura: Bibasilar dependent atelectasis. No acute air space opacities. No pleural effusio ns or pneumothorax. Central and peripheral airways are patent and normal in caliber. Mediastinum: Heart size is normal. No pericardial effusion. No mediastinal or hilar adenopathy by size criteria. Thoracic aorta and central pulmonary arteries are normal in size. Esophagus is lester l in caliber. Small hiatal hernia. Bones and chest wall: Subacute left sixth and seventh rib fractures with callus formation. No suspic ious bony lesions. No vertebral body compression fractures. No axillary or supraclavicular adenopat hy by size criteria. The thyroid is normal in size and there are no incidental findings.. Abdomen: Mild hepatic steatosis. Visualized upper abdominal solid organs otherwise appear normal. U pper abdominal bowel loops are normal in caliber. IMPRESSION: 1. Subacute left sixth and seventh rib fractures. 2. No hemothorax or pneumothorax. 3. Bibasilar atelectasis. Reviewed by: Rao Sanchez MD on 07/14/2022 10:12 AM [place] Approved by: Rao Sanchez MD on 07/14/2022 10:12 AM AKDT Station ID: [id number]
[2022-07-14] MEDS: KETOROLAC 30 MG/ML VIAL IVP STA (11:48)
[2022-07-14 11:58] VITALS: BP 140/83
[2022-07-14] MEDS: iohexoL-300 100 ML VIAL IVP ONE (14:09)
== END 2022-07-14 11:57 | disposition home or self-care (01) ==
LOC: ED 08:14
DX: S22.42XA Multiple fractures of ribs, left side, initial encounter for closed fracture (principal); W18.2XXA Fall in (into) shower or empty bathtub, initial encounter; Y93.E1 Activity, personal bathing and showering; E11.9 Type 2 diabetes mellitus without complications; Z79.4 Long term (current) use of insulin; Z79.899 Other long term (current) drug therapy; F17.200 Nicotine dependence, unspecified, uncomplicated
CPT/HCPCS: 36415; 71260; 80053; 83690; 84484; 84702; 85025; 85379; 85610; 93005; 96374; 96375; 99283; 99284; Q9967

== ENCOUNTER 2022-12-22 09:45 | Outpatient (CLI) | payer MEDICAID ==
--- NOTE | 2022-12-22 12:00 | XRAY Report ---
PROCEDURE: Cervical Spine Complete INDICATIONS: NECK PAIN/ BILAT ARM NUMBNESS TECHNIQUE: 5 view(s) of the cervical spine were acquired. COMPARISON: None. FINDINGS: Bones: No fractures or dislocations to the T1 level. The lateral masses of C1 appear intact on the odontoid view. No suspicious bony lesions. Oblique films demonstrate no bony foraminal narrowing. Soft tissues: No prevertebral soft tissue swelling. IMPRESSION: Unremarkable cervical spine plain films. Reviewed by: Hadley Santos MD on 12/22/2022 11:59 AM PDT Approved by: Hadley Santos MD on 12/22/2022 11:59 AM PDT Station ID: [id number]
== END 2022-12-22 23:59 | disposition home or self-care (01) ==
LOC: DI.WOS 09:45
PROVIDERS: ATTEND Orthopaedic Surgery
DX: M54.12 Radiculopathy, cervical region (principal)

== ENCOUNTER 2023-01-20 08:15 | Outpatient (CLI) | payer MEDICAID ==
[2023-01-20 11:58] LABS: ESTIMATED AVERAGE GLUCOSE 166 mg/dL (70-100); HEMOGLOBIN A1c% 7.4 % (4.27-6.07)
== END 2023-01-20 08:16 | disposition home or self-care (01) ==
LOC: LAB.N 08:15
PROVIDERS: ATTEND Orthopaedic Surgery
DX: E11.9 Type 2 diabetes mellitus without complications (principal)
CPT/HCPCS: 36415; 83036

== ENCOUNTER 2023-04-15 08:42 | Outpatient (CLI) | payer BC ==
--- NOTE | 2023-04-15 09:46 | MRI Report ---
PROCEDURE: CERVICAL SPINE WO INDICATIONS: CERVICAL DISC DISORDER TECHNIQUE: Noncontrast sagittal T1 spin echo and T2 fast spin echo, sagittal STIR, foraminal oblique sagittal T2 fast spin echo, and axial gradient echo or T2 fast spin echo through the cervical spine. COMPARISON: None. FINDINGS: Image quality: Excellent. Alignment and Curvature: There is normal bony alignment. Bone Marrow: Marrow demonstrates normal overall signal. Spinal Cord: Visualized spinal cord has normal size and signal. No cerebellar tonsillar herniation. Paraspinous Soft Tissues: No paravertebral masses. Prevertebral soft tissues are normal in thicknes s. C2-C3: No canal stenosis. Somewhat prominent right facet hypertrophy. No significant foraminal steno sis. C3-C4: No canal stenosis. Bilateral facet hypertrophy. No significant foraminal stenosis. C4-C5: No canal stenosis. Prominent right facet hypertrophy with a component directed into the jackson en. Moderate right foraminal narrowing with mild flattening deformity on the exiting right C5 nerve r oot. C5-C6: Minimal disc bulge. Minimal central posterior disc protrusion without canal stenosis. Mild bi lateral facet hypertrophy. No significant foraminal stenosis. C6-C7: Normal in appearance C7-T1: Normal in appearance. IMPRESSION: 1. There is multilevel bilateral facet hypertrophy, right greater than left. It is prominent on the r ight at C2-C3 and C4-C5. 2. No canal stenosis. 3. Moderate right foraminal narrowing at C4-C5. Reviewed by: Hadley Santos MD on 04/15/2023 9:44 AM PST Approved by: Hadley Santos MD on 04/15/2023 9:44 AM PST Station ID: [id number]
== END 2023-04-15 08:43 | disposition home or self-care (01) ==
LOC: DI 08:42
PROVIDERS: ATTEND Orthopaedic Surgery
DX: M50.222 Other cervical disc displacement at C5-C6 level (principal); M47.812 Spondylosis without myelopathy or radiculopathy, cervical region; M50.322 Other cervical disc degeneration at C5-C6 level; M48.02 Spinal stenosis, cervical region

== ENCOUNTER 2023-06-03 11:23 | Day surgery (SDC) | payer BC, MEDICAID ==
--- NOTE | 2023-06-03 11:36 | ANESTHESIA ---
Pre-Anesthesia VS, & Labs - Diagnosis right carpal tunnel syndrome - Procedure right carpal tunnel release Height: 5 ft 1 in - NPO >8 hours - Is Patient ?: No Home Medications and Allergies Pantoprazole [Protonix] 40 mg PO DAILY 03/18/21 Escitalopram Oxalate 10 mg PO DAILY 07/14/22 Insulin Lispro [Insulin Lispro Kwikpen U-100] 5 unit SQ TIDWM 07/14/22 Nortriptyline HCl [Pamelor] 50 mg PO HS PRN 07/14/22 Empagliflozin [Jardiance] 10 mg PO DAILY 03/12/23 Sucralfate [Carafate] 10 ml PO DAILY PRN 03/12/23 Valacyclovir HCl [Valtrex] 500 mg PO DAILY 03/12/23 Allergies/Adverse Reactions: Allergies Allergy/AdvReac Type Severity Reaction Status Date / Time aspirin Allergy GI bleeding Verified 06/03/23 11:54 Anes History & Medical History - Anesthetic History Anesthesia Complications: reports: No previous complications - Medical History Cardiovascular: reports: None Pulmonary: reports: None Gastrointestinal: reports: GI bleed, Diverticulitis, Other Urinary: reports: None Neuro: reports: Headaches Musculoskeletal: reports: None Endocrine/Autoimmune: reports: Type 2 diabetes Blood Disorders: reports: None Skin: reports: Other Smoking Status: Current every day smoker - Surgical History General: reports: Colonoscopy, EGD Gynecologic: Exam General: Alert, Oriented x3 Dental: WNL Mouth Opening: Greater than 4 Fingerbreadths Neck Mobility: Normal Mallampati classification: I Thyromental Distance: greater than 6 cm Respiratory: Lungs clear Cardiovascular: Regular rate, Normal S1, Normal S2 Plan Anesthesia Type: MAC, Total IV Consent for Procedure(s) Verified and Reviewed: Yes Code Status: Attempt Resuscitation ASA classification: 2-Mild systemic disease Is this case an emergency?: No
[2023-06-03] MEDS: LACTATED RINGERS 1,000 ML IV ONE (11:37)
[2023-06-03 11:47] LABS: HCG UR QUAL NEGATIVE
[2023-06-03] MEDS ORDERED: MIDAZOLAM 2 MG/2 ML VIAL ONE (11:49)
[2023-06-03] MEDS ORDERED: fentaNYL 100 MCG/2 ML VIAL ONE (11:49)
[2023-06-03] MEDS ORDERED: PROPOFOL 200 MG/20 ML VIAL IVP ONE ×2 (11:51→12:45)
[2023-06-03] MEDS ORDERED: LIDOCAINE-PF 2% 10 ML AMP SUBQ ONE (11:51)
[2023-06-03] MEDS ORDERED: LIDOCAINE 1%-EPI 1:100000 20 ML MDV ONE (11:52)
[2023-06-03] MEDS: CELECOXIB 100 MG CAPSULE PO ONE (11:55)
[2023-06-03] MEDS: ACETAMINOPHEN 500 MG TABLET PO ONE (11:55)
[2023-06-03] MEDS ORDERED: PROPOFOL 500 MG/50 ML 500 MG/50 ML VIAL ONE (12:45)
[2023-06-03] MEDS: LIDOCAINE 1%-EPI 1:100000 20 ML MDV SUBQ ONE ×2 (13:10)
[2023-06-03] MEDS: LACTATED RINGERS 400 ML IV ONE ×2 (13:40→14:13)
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
[2023-06-03] MEDS ORDERED: ACETAMINOPHEN 500 MG TABLET PO PRN (13:45)
[2023-06-03 13:55] VITALS: O2SAT 94
[2023-06-03 14:05] VITALS: BP 117/70
[2023-06-03] MEDS ORDERED: oxyCODONE 5 MG TABLET ONE (14:09)
[2023-06-03] MEDS: oxyCODONE 5 MG TABLET PO PRN (14:10)
--- NOTE | 2023-06-03 16:42 | ANESTHESIA POST OP EVALUATION ---
Anesthesia Post Eval - Post Anesthesia Eval Vitals: Last Vital Signs Temp 36.0 C L 06/03/23 13:56 Pulse 97 06/03/23 13:56 Resp 20 06/03/23 13:56 BP 117/70 06/03/23 13:56 Pulse Ox 94 06/03/23 13:56 O2 Flow Rate CV Function Including HR & BP: Stable Pain Control: Satisfactory Nausea & Vomiting: Negative Mental Status: Baseline Respiratory Status: Airway Patent Hydration Status: Satisfactory Anesthesia Complications: None
== END 2023-06-03 11:24 | disposition home or self-care (01) ==
LOC: SDS 11:23
PROVIDERS: ATTEND Orthopaedic Surgery
DX: G56.03 Carpal tunnel syndrome, bilateral upper limbs (principal); E11.42 Type 2 diabetes mellitus with diabetic polyneuropathy; Z79.4 Long term (current) use of insulin; Z79.84 Long term (current) use of oral hypoglycemic drugs; F17.200 Nicotine dependence, unspecified, uncomplicated; E66.9 Obesity, unspecified; F41.9 Anxiety disorder, unspecified; Z68.30 Body mass index [BMI] 30.0-30.9, adult
CPT/HCPCS: 64721; 81025; A9270; J7120